=== PATIENT | female | born 1975 ===

== ENCOUNTER 2017-02-12 15:03 | Inpatient (IN) | payer OTHER ==
[2017-02-12 17:24] LABS: HEMATOCRIT 33.8 % (34.0-47.0); MEAN CELL VOLUME 93.4 fl (81.0-99.0); MEAN CORPUSCULAR HEMOGLOBIN 32.4 pg (27.0-31.0); MEAN CORPUSCULAR HGB CONC 34.7 g/dL (33.0-37.0); RED CELL DISTRIBUTION WIDTH 13.2 % (11.5-14.5); WHITE BLOOD COUNT 6.3 K/uL (4.8-10.8)
[2017-02-12 17:25] LABS: ALB/GLOB RATIO 1.5 (1.0-2.1); ALKALINE PHOSPHATASE 57 U/L (38-126); ALT/SGPT 27 U/L (9-52); AST/SGOT 70 U/L (14-36); BILIRUBIN,TOTAL 0.5 mg/dl (0.2-1.3); BLOOD UREA NITROGEN 6 mg/dl (7-17); CALCIUM 9.4 mg/dL (8.4-10.2); CARBON DIOXIDE 33 mmol/L (22-30); CHLORIDE 98 mmol/L (98-107); GFR AFRICAN-AMERICAN > 60; GLUCOSE,RANDOM 87 mg/dL (65-105); POTASSIUM 2.6 MMOL/L (3.6-5.0); SODIUM 141 mmol/l (132-148); TOTAL PROTEIN 6.5 G/DL (6.3-8.2)
[2017-02-12] MEDS ORDERED: Potassium CL 10mEq/100ml 100 ML IVPB ONE (18:13)
[2017-02-12] MEDS ORDERED: Potassium Chloride 20 mEq ER Tab PO ONE ×2 (18:13→18:25)
--- NOTE | 2017-02-12 19:36 | ED PDOC ---
Lower Extremity Pain/Injury Time Seen by Provider: 02/12/17 16:32 Chief Complaint (Nursing): Lower Extremity Problem/Injury Chief Complaint (Provider): Leg Pain History Per: Patient History/Exam Limitations: no limitations Onset/Duration Of Symptoms: Days (x1 week) Severity: Moderate Additional Complaint(s): Zaira Ramires is a 41 year old female, with a past medical history inclusive of HTN, anxiety and hypothyroidism, who presents to the ED on for the evaluation of moderate b/l leg pain that she has experienced x1 week. Associated palpitations also reported, with patient further stating that she has felt a similar array of symptoms in the past, at which time she had been diagnosed with hypokalemia. Patient reportedly saw her PMD 2 days ago for this issue but was referred to the ED for further evaluation/treatment. Pt states she is is not taking BP medications (does not know name), potassium and magnesium. Pt states she was not taking any when she was originally diagnosed with hypokalemia. PT states she has not yet seen nephrology. PMD: Talat March Past Medical History Reviewed: Historical Data, Nursing Documentation, Vital Signs Vital Signs: Last Vital Signs Temp 97.5 F L 02/12/17 15:38 Pulse 80 02/12/17 15:38 Resp 18 02/12/17 15:38 BP 128/63 02/12/17 15:38 Pulse Ox 100 02/12/17 15:38 - Medical History PMH: Anxiety, Gastritis, HTN, Hypothyroidism Denies: HIV, Chronic Kidney Disease - Surgical History Surgical History: Hernia Repair (b/l inguinal) - Family History Family History: States: Unknown Family Hx - Living Arrangements Living Arrangements: With Family - Social History Current smoker - smoking cessation education provided: No Alcohol: None Drugs: Denies - Home Medications Home Medications: Ambulatory Orders Medication Instructions Recorded Bupropion HCl [Wellbutrin Sr] 150 mg PO DAILY 12/01/16 Clonazepam [Klonopin] 0.5 mg PO TID 12/01/16 Levothyroxine [Synthroid] 50 mcg PO DAILY 12/01/16 Zolpidem Tartrate [Ambien] 10 mg PO HS 12/01/16 Calcium Gluconate [calcium 500 mg PO BID #60 tab 12/02/16 gluconate] Folic Acid 1 mg PO DAILY #30 tab 12/02/16 Magnesium Oxide [Mag-Ox] 400 mg PO DAILY #30 tab 12/02/16 Potassium Chloride [K-Dur 20 mEq 40 meq PO QID #120 tab 12/02/16 ER Tab] - Allergies Allergies/Adverse Reactions: Allergies Allergy/AdvReac Type Severity Reaction Status Date / Time No Known Allergies Allergy Verified 12/01/16 06:10 Review of Systems ROS Statement: Except As Marked, All Systems Reviewed And Found Negative Cardiovascular: Positive for: Palpitations Musculoskeletal: Positive for: Leg Pain (b/l) Physical Exam - Reviewed Nursing Documentation Reviewed: Yes Vital Signs Reviewed: Yes - Physical Exam Appears: Positive for: Well, Non-toxic, No Acute Distress Head Exam: Positive for: ATRAUMATIC, NORMAL INSPECTION, NORMOCEPHALIC Skin: Positive for: Normal Color, Warm, DRY Eye Exam: Positive for: Normal appearance ENT: Positive for: Normal ENT Inspection Neck: Positive for: Normal, Painless ROM Cardiovascular/Chest: Positive for: Regular Rate, Rhythm Respiratory: Positive for: CNT, Normal Breath Sounds Gastrointestinal/Abdominal: Positive for: Normal Exam, Bowel Sounds, Soft Back: Positive for: Normal Inspection Extremity: Positive for: Normal ROM Neurologic/Psych: Positive for: Alert, Oriented - Laboratory Results Result Diagrams: 02/12/17 16:47 02/12/17 17:00 - ECG O2 Sat by Pulse Oximetry: 100 (RA) Pulse Ox Interpretation: Normal Medical Decision Making Medical Decision Makin:32 Initial Impression: leg pain, palpitations Initial Plan: * EKG * Labs * Magnesium * Troponin I * Zofran 4mg IV * Reevaluation 18:13 Labs reviewed, notable for hypokalemia (2.6). Ordered administration of potassium chloride 10/100ml IVPB as well as potassium chloride 20meq PO. Discussed with Dr. Barton who would like additional PO potassium. Scribe Attestation: Documented by Renetta Jones, acting as a scribe for Kiera Israel PA-C. Provider Scribe Attestation: All medical record entries made by the Scribe were at my direction and personally dictated by me. I have reviewed the chart and agree that the record accurately reflects my personal performance of the history, physical exam, medical decision making, and the department course for this patient. I have also personally directed, reviewed, and agree with the discharge instructions and disposition. Disposition - Clinical Impression Clinical Impression: Hypokalemia - Patient ED Disposition Is Patient to be Admitted: Yes - Disposition Disposition Time: 19:55 Condition: STABLE - Pt Status Changed To: Hospital Disposition Of: Inpatient - Admit Certification Admit to Inpatient:: After my assessment, the patient will require hospitalization for at least two midnights. This is because of the severity of symptoms shown, intensity of services needed, and/or the medical risk in this patient being treated as an outpatient. - POA Present On Arrival: None
[2017-02-12] MEDS ORDERED: Potassium Chloride 10 mEq ER Tab PO STA (19:55)
[2017-02-13] MEDS ORDERED: Potassium Chloride 10 mEq ER Tab PO ONE (01:07)
[2017-02-13 06:40] LABS: BLOOD UREA NITROGEN 6 mg/dl (7-17); CALCIUM 8.4 mg/dL (8.4-10.2); CARBON DIOXIDE 33 mmol/L (22-30); CHLORIDE 97 mmol/L (98-107); GFR AFRICAN-AMERICAN > 60; GLUCOSE,RANDOM 93 mg/dL (65-105); MAGNESIUM 1.5 MG/DL (1.6-2.3); SODIUM 141 mmol/l (132-148)
[2017-02-13] MEDS ORDERED: Magnesium Sulfate 1 GM in Dextrose 5% In Water 100 ML IV ONE (07:00)
[2017-02-13 07:11] LABS: THYROID STIMULATING HORMONE 1.85 mIU/ML (0.46-4.68)
--- NOTE | 2017-02-13 07:12 | CARD ---
APPROVED REPORT EKG Measurement Heart [id number] <Conclusion> Normal sinus rhythm Normal ECG
[2017-02-13] MEDS: Levothyroxine 50 MCG TAB PO SCH (07:47)
[2017-02-13] MEDS ORDERED: Patient's Own Med (Omeprazole [Omeprazole] 40 MG) PO SCH (09:00)
[2017-02-13] MEDS ORDERED: Patient's Own Med (Zolpidem [Ambien] 10 MG) PO SCH (09:00)
[2017-02-13] MEDS ORDERED: Pantoprazole 40 mg EC Tab PO ONE (09:49)
[2017-02-13] MEDS: Pantoprazole 40 mg EC Tab PO SCH (10:04)
[2017-02-13] MEDS ORDERED: Iohexol 240 (50 ml) PO ONE (14:48)
[2017-02-13 16:18] LABS: PHOSPHOROUS 3.3 mg/dl (2.5-4.5)
[2017-02-13] MEDS ORDERED: Potassium Chloride 20 mEq ER Tab PO ONE ×2 (16:30→20:30)
--- NOTE | 2017-02-13 16:33 | CP.PCM.CON ---
History of Present Illness - History of Present Illness History of Present Illness: 41 y/o female with Hx/o UHTN, Hypothyroidism dxed few mos. ago, anxiety presented to ER for c/o generalized weakness & pain in both legs. Pt stated that she has hsd 7 similar episodes in the past Denied use of alcohol , drug abuse or exposure to chemicals, No one in the family had similar episodes & no other family members have hypo or hyperthyroidism Works as Speciality Pharmacist FHx is significant for DM & HTN in father Past Patient History - Infectious Disease Hx of Infectious Diseases: None - Past Medical History & Family History Past Medical History?: Yes - Past Social History Alcohol: None Drugs: Denies - CARDIAC Hx Cardiac Disorders: No - PULMONARY Hx Respiratory Disorders: No - NEUROLOGICAL Hx Neurological Disorder: No - HEENT Hx HEENT Problems: No - RENAL Hx Chronic Kidney Disease: No - ENDOCRINE/METABOLIC Hx Endocrine Disorders: Yes (hypothyroidism, GI hx: gastritis) - HEMATOLOGICAL/ONCOLOGICAL Hx Blood Disorders: No - INTEGUMENTARY Hx Dermatological Problems: No - MUSCULOSKELETAL/RHEUMATOLOGICAL Hx Musculoskeletal Disorders: No - GASTROINTESTINAL Hx Gastritis: Yes - GENITOURINARY/GYNECOLOGICAL Hx Genitourinary Disorders: No - PSYCHIATRIC Hx Psychophysiologic Disorder: Yes (anxiety) - SURGICAL HISTORY Hx Surgeries: Yes Hx Herniorrhaphy: Yes (Bilateral inguinal) Other/Comment: inguinal hernia sx - ANESTHESIA Hx Anesthesia: Yes Hx Anesthesia Reactions: No Hx Malignant Hyperthermia: No Meds Allergies/Adverse Reactions: Allergies Allergy/AdvReac Type Severity Reaction Status Date / Time No Known Allergies Allergy Verified 12/01/16 06:10 - Medications Medications: Current Medications Clonazepam (Klonopin) 1 mg PO BID [facility] Levothyroxine Sodium (Synthroid) 50 mcg PO DAILY@0630 [facility] Last Admin: 02/13/17 07:47 Dose: 50 mcg Ondansetron HCl (Zofran Inj) 4 mg IVP Q6 PRN PRN Reason: Nausea/Vomiting Last Admin: 02/13/17 11:24 Dose: 4 mg Pantoprazole Sodium (Protonix Ec Tab) 40 mg PO DAILY [facility] Last Admin: 02/13/17 10:04 Dose: 40 mg Potassium Chloride (K-Dur 20 Meq Er Tab) 40 meq PO ONCE ONE Stop: 02/14/17 16:31 Potassium Chloride (K-Dur 20 Meq Er Tab) 40 meq PO ONCE ONE Stop: 02/14/17 20:31 Zolpidem Tartrate (Ambien) 5 mg PO HS [facility] Results - Vital Signs Recent Vital Signs: Last Vital Signs Temp 98.7 F 02/13/17 15:23 Pulse 80 02/13/17 15:23 Resp 16 02/13/17 15:23 BP 109/63 02/13/17 15:23 Pulse Ox 98 02/13/17 15:23 - Labs Result Diagrams: 02/12/17 16:47 02/13/17 05:41 Labs: Laboratory Results - last 24 hr 02/12/17 02/13/17 02/13/17 20:20 05:41 15:45 Sodium 141 Potassium 3.0 L Chloride 97 L Carbon Dioxide 33 H Anion Gap 14 BUN 6 L Creatinine 0.6 L Est GFR ( Amer) > 60 Est GFR (Non-Af Amer) > 60 Random Glucose 93 Calcium 8.4 Phosphorus 3.3 Magnesium 1.7 1.5 L Total Creatine Kinase 79 TSH 3rd Generation 1.85 Assessment & Plan - Assessment and Plan (Free Text) Assessment: Hypokalemia etiology unclear at this time Mild metabolic alkalosis Hypothyroidism Anxiety disorder on Clonazepam Plan: Supplement K+ Urinalysis Urine lytes Phos CPK Repeat liver panel Grzegorz & renin levels
[2017-02-13] MEDS ORDERED: Sodium Chloride 0.9% 50 ML IV ONE (19:31)
[2017-02-13] MEDS ORDERED: Iohexol 300 100 ML IJ ONE (19:31)
[2017-02-13 20:12] VITALS: BMI 21.0
[2017-02-13 22:45] LABS: RBC URINE < 1 /hpf (0-3); URINE BACTERIA FEW (<OCC); URINE BILIRUBIN NEGATIVE (NEGATIVE); URINE BLOOD NEGATIVE (NEGATIVE); URINE COLOR STRAW (YELLOW); URINE GLUCOSE (UA) NEGATIVE (Normal); URINE KETONE NEGATIVE (NEGATIVE); URINE LEUKOCYTE ESTERASE NEGATIVE Leu/uL (Negative); URINE PROTEIN NEGATIVE (NEGATIVE); URINE UROBILINOGEN 0.2 mg/dL (0.2-1.0); WBC URINE < 1 /hpf (0-5)
[2017-02-14 07:32] LABS: ALB/GLOB RATIO 1.4 (1.0-2.1); ALKALINE PHOSPHATASE 55 U/L (38-126); ALT/SGPT 31 U/L (9-52); AST/SGOT 32 U/L (14-36); BILIRUBIN,TOTAL 0.4 mg/dl (0.2-1.3); BLOOD UREA NITROGEN 9 mg/dl (7-17); CALCIUM 8.9 mg/dL (8.4-10.2); CARBON DIOXIDE 33 mmol/L (22-30); CHLORIDE 96 mmol/L (98-107); GFR AFRICAN-AMERICAN > 60; GLUCOSE,RANDOM 91 mg/dL (65-105); MAGNESIUM 2.2 MG/DL (1.6-2.3); POTASSIUM 2.8 MMOL/L (3.6-5.0); SODIUM 140 mmol/l (132-148); TOTAL PROTEIN 6.2 G/DL (6.3-8.2)
--- NOTE | 2017-02-14 08:37 | HP ---
HISTORY OF PRESENT ILLNESS: The patient is a 41-year-old female with history of hypothyroid ism and gastroesophageal reflux disease, presented to Emergency Room with symptoms of bilateral lower extremity weakness, tingling and numbness. The patient had blood work done in her primary care phys ician's office and she was advised to come to the hospital for evaluation where she was found to have potassium of 2.6. The patient denied to have any nausea, vomiting or decreased oral intake. The pa john was not on any laxatives or diuretic. REVIEW OF SYSTEMS: Other review of systems is negative. ALLERGIES: No known allergy. HOME MEDICATIONS: Ambien 5 mg daily, K-Dur 20 mEq daily, Klonopin 1 mg twice a day, Protonix 40 mg d aily, levothyroxine 50 mcg daily. SOCIAL HISTORY: No history of smoking, EtOH or substance abuse. FAMILY HISTORY: Noncontributory. PHYSICAL EXAMINATION: GENERAL: The patient is in bed, comfortable, not in any cardiopulmonary distress. VITAL SIGNS: Blood pressure 115/81, temperature 97.4, respiratory rate 18, and pulse 93. HEENT: Pupils equal, reactive to light. Normal-appearing mucosa of the conjunctivae, oropharyngeal and nasal membrane mucosa. NECK: Supple, no JVD, no carotid bruit, no lymph node, no thyromegaly. CHEST AND LUNGS: Bilateral symmetrical expansion, good air exchange, no rales, no rhonchi. CARDIOVASCULAR: PMI not localized. S1, S2. No additional sounds. ABDOMEN: Normoactive bowel sounds, no tenderness, no organomegaly, no masses. EXTREMITIES: No cyanosis, no clubbing, no edema. CENTRAL NERVOUS SYSTEM: Alert, awake, oriented x 3. No neurological deficits could be appreciated. ASSESSMENT: 1. Hypokalemia. The differential diagnosis includes periodic hypokalemic paralysis. 2. Hypothyroidism. PLAN: We will check magnesium and supplement potassium, and due to vague abdominal symptoms, we will do CAT scan of the abdomen with p.o. and IV contrast. Nephrology consult. Phil Ana Barton MD cc: [phone] TT: 02/13/2017 19:54:26 mn
[2017-02-14] MEDS: Levothyroxine 50 MCG TAB PO SCH (09:03)
[2017-02-14] MEDS: Pantoprazole 40 mg EC Tab PO SCH (09:03)
--- NOTE | 2017-02-14 10:35 | CT ---
PROCEDURE: CT Abdomen and abdomen and pelvis dated 02/13/2017 HISTORY: abdl pain/ vomiting COMPARISON: None. TECHNIQUE: Contiguous axial images of the abdomen and pelvis performed in standard fashion following oral and intravenous injection of approximately 90 cc of Omnipaque 300 contrast material. Additional 2 dimensional sagittal and coronal reformats provided. This CT scan was performed using one or more of the following dose reduction techniques: Automated exposure control, adjustment of the mA and or kV according to patient's size and or use of iterative technique Radiation dose: Total exam DLP = 396.96 mGy-cm. FINDINGS: LOWER THORAX: Lung bases are clear. No infiltrate effusion or basilar pneumothorax. Heart size is within range of normal. No evidence of pericardial effusion LIVER: Liver exhibits normal size measuring approximately 16.4 cm in CC dimension. Mild to moderate diffuse fatty infiltration. No obvious hepatic mass collection or calcification. Portal and splenic veins are opacified. GALLBLADDER AND BILE DUCTS: Gallbladder is appears incompletely distended. No evidence of intraluminal gallbladder calculi. PANCREAS: Pancreas appears unremarkable without mass collection or calcification SPLEEN: Spleen exhibits normal size and attenuation pattern without mass collection or calcification. . ADRENALS: No adrenal lesions. KIDNEYS AND URETERS: The kidneys exhibit symmetric nephrograms. No evidence of nephrolithiasis or hydronephrosis. BLADDER: Grossl urinary bladder is physiologically distended. No evidence of intraluminal urinary bladder calculi. REPRODUCTIVE: There appears to be a small cervical nabothian cyst. This could be confirmed with follow-up nonemergent pelvic ultrasound if indicated. Questionable small left adnexal cyst which may also be confirmed or excluded with pelvic ultrasound. Due. . APPENDIX: Normal appearing appendix best seen on coronal image number [id number] BOWEL: Evaluation of the bowel slightly limited due to incomplete opacification. . The stomach is incompletely distended which presumably accounts for thick-walled appearance. The possibility of gastritis or other intrinsic but/invasive wall lesion not excluded. Visualized loops of small bowel exhibit normal contour and caliber. No evidence acute mechanical small bowel obstruction. There is a relatively large amount of stool within rectum and sigmoid as well as distal descending colon consistent with mild fecal retention/ constipation. PERITONEUM: No evidence of free intraperitoneal air or fluid. LYMPH NODES: Unremarkable. No enlarged lymph nodes. VASCULATURE: Unremarkable. No aortic aneurysm. BONES: Minor multilevel degenerative spondylosis of the lower thoracic and lumbar spine. OTHER FINDINGS: None. IMPRESSION: Findings consistent with mild fecal retention/constipation. Mild fatty hepatic infiltration. Probable cervical nabothian cyst. Questionable tiny left adnexal cyst. Followup nonemergent pelvic ultrasound could be performed to confirm or exclude these findings.
[2017-02-14] MEDS ORDERED: Potassium Chloride 20 mEq ER Tab PO ONE ×5 (11:54→20:30)
--- NOTE | 2017-02-14 13:21 | CP.PCM.PN ---
Subjective - Date & Time of Evaluation Date of Evaluation: 02/14/17 Time of Evaluation: 13:18 - Subjective Subjective: seen and examined feeling better less tingling Objective - Vital Signs/Intake and Output Vital Signs (last 24 hours): Temp Pulse Resp BP Pulse Ox 97.4 F L 66 18 114/76 100 02/14/17 08:00 02/14/17 09:00 02/14/17 08:00 02/14/17 08:00 02/14/17 08:00 - Medications Medications: Current Medications Clonazepam (Klonopin) 1 mg PO BID [facility] Last Admin: 02/14/17 09:03 Dose: 1 mg Potassium Chloride (Potassium Chloride 10 Meq/100 Ml) 100 mls @ 100 mls/hr IVPB Q1 [facility] Stop: 02/14/17 15:59 Levothyroxine Sodium (Synthroid) 50 mcg PO DAILY@0630 [facility] Last Admin: 02/14/17 09:03 Dose: 50 mcg Ondansetron HCl (Zofran Inj) 4 mg IVP Q6 PRN PRN Reason: Nausea/Vomiting Last Admin: 02/13/17 18:54 Dose: 4 mg Pantoprazole Sodium (Protonix Ec Tab) 40 mg PO DAILY [facility] Last Admin: 02/14/17 09:03 Dose: 40 mg Zolpidem Tartrate (Ambien) 5 mg PO HS [facility] Last Admin: 02/13/17 21:01 Dose: 5 mg - Labs Labs: 02/14/17 06:20 - Constitutional Appears: Well - Head Exam Head Exam: ATRAUMATIC - Eye Exam Eye Exam: Normal appearance - ENT Exam ENT Exam: Normal Exam - Respiratory Exam Respiratory Exam: NORMAL BREATHING PATTERN - Cardiovascular Exam Cardiovascular Exam: +S1, +S2 - GI/Abdominal Exam GI & Abdominal Exam: Normal Bowel Sounds - Extremities Exam Additional comments: no edema - Neurological Exam Neurological Exam: Alert, Oriented x3 - Psychiatric Exam Psychiatric exam: Normal Affect - Skin Skin Exam: Normal Color Assessment and Plan - Assessment and Plan (Free Text) Assessment: hypokalemia / metabolic alkalosis / hypothyroid plan: hypokalemia - althought her urine k was low by spot , i doubt this is hypokalemia from transceullar shift and most likely a result of renal k wasting. I have ordered a spot urine k / cr to assess for this as well as a 24 hour urine k. The low urine k by spot likely low due to dilutional from polyuria. assuming that it is k wasting - next step is urine cl which i have ordered. If this is high, which i suspect it will be than the ddx is diuretic, barter, and gitleman. She denies diuretic - if possible I would recommend ordering a diuretic screen. In the ddx is surreptious vomiting as well, urine cl will be low in that situation. Given her age more likely to be gitleman than barter. 24 hour urine calcium would help distinguish the two. In the meantime discussed repletion of k w/ engineering vice president. Recc recheck bmp this afternoon to see if she needs more.
[2017-02-14] MEDS: Potassium CL 10mEq/100ml 100 ML IVPB SCH ×4 (14:03→17:05)
[2017-02-14] MEDS: buPROPion SR 150 MG TABLET PO SCH (16:22)
[2017-02-14 22:00] LABS: BLOOD UREA NITROGEN 7 mg/dl (7-17); CALCIUM 8.5 mg/dL (8.4-10.2); CARBON DIOXIDE 31 mmol/L (22-30); CHLORIDE 98 mmol/L (98-107); GFR AFRICAN-AMERICAN > 60; GLUCOSE,RANDOM 49 mg/dL (65-105); POTASSIUM 2.9 MMOL/L (3.6-5.0); SODIUM 139 mmol/l (132-148)
[2017-02-15] MEDS: Levothyroxine 50 MCG TAB PO SCH (06:00)
[2017-02-15 06:45] LABS: HEMATOCRIT 36.6 % (34.0-47.0); MEAN CORPUSCULAR HGB CONC 34.4 g/dL (33.0-37.0); RED CELL DISTRIBUTION WIDTH 13.3 % (11.5-14.5); WHITE BLOOD COUNT 6.7 K/uL (4.8-10.8)
[2017-02-15 06:48] LABS: BLOOD UREA NITROGEN 11 mg/dl (7-17); CALCIUM 8.7 mg/dL (8.4-10.2); CARBON DIOXIDE 26 mmol/L (22-30); CHLORIDE 104 mmol/L (98-107); GFR AFRICAN-AMERICAN > 60; GLUCOSE,RANDOM 90 mg/dL (65-105); SODIUM 141 mmol/l (132-148)
[2017-02-15 08:02] LABS: CHLORIDE URINE <15 mmol/L (32-290)
[2017-02-15] MEDS: Pantoprazole 40 mg EC Tab PO SCH (09:21)
[2017-02-15] MEDS: buPROPion SR 150 MG TABLET PO SCH (09:22)
--- NOTE | 2017-02-15 12:31 | CP.PCM.PN ---
Subjective - Date & Time of Evaluation Date of Evaluation: 02/15/17 Time of Evaluation: 12:20 - Subjective Subjective: C/o feeling nauseous. No vomiting Feels very thirsty Objective - Vital Signs/Intake and Output Vital Signs (last 24 hours): Temp Pulse Resp BP Pulse Ox 97.5 F L 68 20 96/60 L 100 02/15/17 09:00 02/15/17 09:00 02/15/17 09:00 02/15/17 09:00 02/15/17 09:00 - Medications Medications: Current Medications Bupropion HCl (Wellbutrin Sr 150 Mg) 150 mg PO DAILY [facility] Last Admin: 02/15/17 09:22 Dose: 150 mg Clonazepam (Klonopin) 1 mg PO BID [facility] Last Admin: 02/15/17 09:57 Dose: 1 mg Levothyroxine Sodium (Synthroid) 50 mcg PO DAILY@0630 [facility] Last Admin: 02/15/17 06:00 Dose: 50 mcg Ondansetron HCl (Zofran Inj) 4 mg IVP Q6 PRN PRN Reason: Nausea/Vomiting Last Admin: 02/15/17 08:36 Dose: 4 mg Pantoprazole Sodium (Protonix Ec Tab) 40 mg PO DAILY [facility] Last Admin: 02/15/17 09:21 Dose: 40 mg Zolpidem Tartrate (Ambien) 5 mg PO HS [facility] Last Admin: 02/14/17 21:36 Dose: 5 mg - Labs Labs: 02/15/17 04:00 02/15/17 04:30 - Respiratory Exam Additional comments: Lungs clear - Cardiovascular Exam Cardiovascular Exam: REGULAR RHYTHM - Extremities Exam Additional comments: No edema Assessment and Plan - Assessment and Plan (Free Text) Assessment: Hypokalemia. K+ remains low despite supplementation Low sodium & low chloride in urine suggest intravascular volume depletion Plan: Supplement K+ as needed Suggest IV fluids 24 hr urine pending
[2017-02-15] MEDS: Dextrose 5%/0.45% NS 1,000 ML IV SCH (15:31)
[2017-02-15] MEDS ORDERED: Potassium Chloride 20 mEq ER Tab PO ONE (20:14)
--- NOTE | 2017-02-15 20:45 | PN ---
DATE: 02/15/2017 SUBJECTIVE: The patient is seen today, 02/15/2017. She still has potassium of 3.0. VITAL SIGNS: Blood pressure is 108/69, temperature 98.4, respiratory rate 18 and pulse is 71. HEENT: Pupils equal, reactive to light. Normal-appearing mucosa of the conjunctivae, oropharyngeal, and nasal membrane mucosa. NECK: Supple, no JVD, no carotid bruit, no lymph node, no thyromegaly. CHEST AND LUNGS: Bilateral symmetrical expansion, good air exchange, no rales, no rhonchi. CARDIOVASCULAR: PMI not localized. S1, S2. No additional sounds. ABDOMEN: Normoactive bowel sounds, no tenderness, no organomegaly, no masses. EXTREMITIES: No cyanosis, no clubbing, no edema. CENTRAL NERVOUS SYSTEM: Alert, awake, oriented x 3. No neurological deficits could be appreciated. ASSESSMENT: 1. Persistent hypokalemia of unknown etiology so far. 2. Hypothyroidism. PLAN: We will supplement potassium today. Monitor electrolytes tomorrow and follow up nephrology re commendations and continue monitoring patient on telemetry. [facility] Ana Barton MD cc: [phone] TT: 02/15/2017 20:45:08 Confirmation # [id number] Dictation # [id number] ln
--- NOTE | 2017-02-15 20:49 | PN ---
DATE: 02/14/2017 The patient was seen on 02/14/2017. She was still complaining of lower extremity weakness, while pot assium was 2.8. PHYSICAL EXAMINATION: VITAL SIGNS: Blood pressure 106/72, temperature 98.4, respiratory rate 18, and pulse 68. HEENT: Pupils equal, reactive to light. Normal-appearing mucosa of the conjunctivae, oropharyngeal and nasal membrane mucosa. NECK: Supple, no JVD, no carotid bruit, no lymph node, no thyromegaly. CHEST AND LUNGS: Bilateral symmetrical expansion, good air exchange, no rales, no rhonchi. CARDIOVASCULAR: PMI not localized. S1, S2. No additional sounds. ABDOMEN: Normoactive bowel sounds, no tenderness, no organomegaly, no masses. EXTREMITIES: No cyanosis, no clubbing, no edema. CENTRAL NERVOUS SYSTEM: Alert, awake, oriented x 3. No neurological deficits could be appreciated. ASSESSMENT: 1. Persistent hypokalemia with his lower extremity weakness, etiology of which is not clear. 2. Hypothyroidism. PLAN: Follow nephrology recommendations. Check urine for chloride and aldosterone levels as per nep hrologist. We will supplement potassium and magnesium. Emery Barton MD cc: [phone] TT: 02/15/2017 20:48:42 Confirmation # [id number] Dictation # [id number] ln
[2017-02-16] MEDS ORDERED: Potassium Chloride 20 mEq ER Tab PO ONE ×3 (00:15→21:00)
[2017-02-16] MEDS: Levothyroxine 50 MCG TAB PO SCH (05:57)
[2017-02-16 08:27] LABS: BLOOD UREA NITROGEN 9 mg/dl (7-17); CALCIUM 8.8 mg/dL (8.4-10.2); CARBON DIOXIDE 28 mmol/L (22-30); CHLORIDE 105 mmol/L (98-107); GFR AFRICAN-AMERICAN > 60; GLUCOSE,RANDOM 95 mg/dL (65-105); SODIUM 142 mmol/l (132-148)
[2017-02-16] MEDS: buPROPion SR 150 MG TABLET PO SCH (09:17)
[2017-02-16] MEDS: Pantoprazole 40 mg EC Tab PO SCH (09:17)
[2017-02-16] MEDS: Dextrose 5%/0.45% NS 1,000 ML IV SCH (09:27)
[2017-02-16 14:35] LABS: CHLORIDE URINE <15 mmol/L (32-290)
--- NOTE | 2017-02-16 14:53 | CP.PCM.PN ---
Subjective - Date & Time of Evaluation Date of Evaluation: 02/16/17 Time of Evaluation: 02:20 - Subjective Subjective: C/o pain in legs when walking around sweats a lot when nervous or while eating meals Objective - Vital Signs/Intake and Output Vital Signs (last 24 hours): Temp Pulse Resp BP Pulse Ox 97.5 F L 92 H 18 103/67 100 02/16/17 12:18 02/16/17 12:18 02/16/17 12:18 02/16/17 12:18 02/16/17 12:18 - Medications Medications: Current Medications Bupropion HCl (Wellbutrin Sr 150 Mg) 150 mg PO DAILY [facility] Last Admin: 02/16/17 09:17 Dose: 150 mg Clonazepam (Klonopin) 1 mg PO BID [facility] Last Admin: 02/16/17 09:25 Dose: 1 mg Levothyroxine Sodium (Synthroid) 50 mcg PO DAILY@0630 [facility] Last Admin: 02/16/17 05:57 Dose: 50 mcg Ondansetron HCl (Zofran Inj) 4 mg IVP Q6 PRN PRN Reason: Nausea/Vomiting Last Admin: 02/15/17 08:36 Dose: 4 mg Pantoprazole Sodium (Protonix Ec Tab) 40 mg PO DAILY [facility] Last Admin: 02/16/17 09:17 Dose: 40 mg Zolpidem Tartrate (Ambien) 5 mg PO HS [facility] Last Admin: 02/15/17 22:22 Dose: 5 mg - Labs Labs: 02/15/17 04:00 02/16/17 06:00 - Respiratory Exam Additional comments: Lungs clear - Cardiovascular Exam Cardiovascular Exam: REGULAR RHYTHM - Extremities Exam Additional comments: No edema Mild B/L calf tenderness Assessment and Plan - Assessment and Plan (Free Text) Assessment: Hypokalemia K+ level remains low Low random urine K+ & K+/ creat suggesta extra renal K+ loss (Cellular shift, GI losses) 24 hr urineK+ is pending, Ca is normal metabolic alkalosis corrected Plan: Check BP for orthostatic hypotension Continue IVFs Venous doppler of both LEs
[2017-02-17] MEDS: Potassium Chloride 20 mEq ER Tab PO SCH ×2 (04:58→09:33)
[2017-02-17] MEDS: Pantoprazole 40 mg EC Tab PO SCH (09:33)
[2017-02-17] MEDS: Levothyroxine 50 MCG TAB PO SCH (09:34)
[2017-02-17] MEDS: buPROPion SR 150 MG TABLET PO SCH (09:34)
[2017-02-17 10:49] LABS: BLOOD UREA NITROGEN 7 mg/dl (7-17); CALCIUM 8.9 mg/dL (8.4-10.2); CARBON DIOXIDE 23 mmol/L (22-30); CHLORIDE 104 mmol/L (98-107); GFR AFRICAN-AMERICAN > 60; GLUCOSE,RANDOM 109 mg/dL (65-105); SODIUM 142 mmol/l (132-148)
[2017-02-17 11:10] LABS: POTASSIUM 2.5 MMOL/L (3.6-5.0)
[2017-02-17] MEDS: Potassium CL 10mEq/100ml 100 ML IVPB SCH ×3 (11:54→15:00)
--- NOTE | 2017-02-17 13:50 | CP.PCM.PN ---
Subjective - Date & Time of Evaluation Date of Evaluation: 02/17/17 Time of Evaluation: 01:00 - Subjective Subjective: C/o numbness in legs Objective - Vital Signs/Intake and Output Vital Signs (last 24 hours): Temp Pulse Resp BP Pulse Ox 97.5 F L 94 H 18 108/73 100 02/17/17 12:19 02/17/17 12:19 02/17/17 12:19 02/17/17 12:19 02/17/17 12:19 - Medications Medications: Current Medications Bupropion HCl (Wellbutrin Sr 150 Mg) 150 mg PO DAILY [facility] Last Admin: 02/17/17 09:34 Dose: 150 mg Clonazepam (Klonopin) 1 mg PO BID [facility] Last Admin: 02/17/17 09:38 Dose: 1 mg Potassium Chloride (Potassium Chloride 10 Meq/100 Ml) 100 mls @ 100 mls/hr IVPB Q1 [facility] Stop: 02/17/17 14:59 Last Admin: 02/17/17 13:08 Dose: 100 mls/hr Levothyroxine Sodium (Synthroid) 50 mcg PO DAILY@0630 [facility] Last Admin: 02/17/17 09:34 Dose: Not Given Ondansetron HCl (Zofran Inj) 4 mg IVP Q6 PRN PRN Reason: Nausea/Vomiting Last Admin: 02/15/17 08:36 Dose: 4 mg Pantoprazole Sodium (Protonix Ec Tab) 40 mg PO DAILY [facility] Last Admin: 02/17/17 09:33 Dose: 40 mg Potassium Chloride (K-Dur 20 Meq Er Tab) 40 meq PO ONCE [facility] Last Admin: 02/17/17 04:58 Dose: 40 meq Potassium Chloride (K-Dur 20 Meq Er Tab) 40 meq PO DAILY [facility] Last Admin: 02/17/17 09:33 Dose: 40 meq - Labs Labs: 02/15/17 04:00 02/17/17 10:25 - Respiratory Exam Additional comments: Lungs clear - Cardiovascular Exam Cardiovascular Exam: REGULAR RHYTHM - Extremities Exam Additional comments: No edema or cyanosis Assessment and Plan - Assessment and Plan (Free Text) Assessment: Hypokalemia Polyuria with low uosm Plan: supplement K+ Suggest MRI of brain to r/o pituitary pathology Repeat Mg level Vasopressin level
[2017-02-17] MEDS ORDERED: Gadodiamide 287 MG/ML VIAL (15ML) IV ONE (14:07)
[2017-02-17] MEDS ORDERED: Sodium Chloride 0.9% 50 ML IV ONE (14:24)
--- NOTE | 2017-02-17 15:50 | CON ---
DATE: 02/17/2017 ROOM: 418 This is a 41-year-old female with known history of hypertension and dyslipidemia, presenting here wit h lower extremity weakness and paresthesias and is now being referred for endocrine evaluation for pe rsistent hypokalemia as noted thereof. PAST MEDICAL HISTORY: History of hypothyroidism, currently on levothyroxine given as 50 mcg daily, h istory of hypertension and dyslipidemia, history of generalized anxiety and depression and insomnia. FAMILY HISTORY: Positive for hypertension and diabetes. No known endocrinopathy. SOCIAL HISTORY: The patient has a supportive family. No known substance use. REVIEW OF SYSTEMS: Admits to generalized body weakness with easy fatigability and tiredness and subo ptimal energy level. No chest pains or palpitations or PNDs. Admits to vague upper abdominal pain w ith nausea, dyspepsia, but no overt vomiting episodes or any loose watery diarrhea. No recent altera tions of bowel and/or urinary patterns nor any intake of any diuretics thereof. PHYSICAL EXAMINATION: GENERAL: This is an average built female, in no apparent distress. VITAL SIGNS: Blood pressure of 140/80, pulse of 70 beats per minute and regular, temperature 98, res pirations 20. Height is 5 feet 3 inches, weight is 119 pounds. HEENT: Head normocephalic. Eyes anicteric with conjunctivae. Fundoscopy not possible at this time. Ears, nose and throat otherwise normal. NECK: Supple. The thyroid gland is normal size. No carotid bruits or cervical adenopathy. CARDIOPULMONARY: Some adynamic precordium. S1, S2 is rapid and regular. LUNGS: Clear to auscultation. ABDOMEN: Flat, soft with positive bowel sounds. EXTREMITIES: No peripheral edema. Pulses are +2 bilaterally. LABORATORIES: The initial chemistries showed a BUN of 7, sodium 139, potassium 2.9, chloride 98, CO2 31, glucose 49 and creatinine 0.7. The subsequent glucoses have ranged from 95-109 mg/dL. The subs equent potassium levels have ranged from 2.5-3.0 mEq/liter. The serum osmolality is 304. The plasma rennin is pending at this time. The plasma aldosterone is 2 and the ratios are pending at this time . The TSH value is 1.85. ASSESSMENT: This is a 41-year-old female with significant hypokalemia and associated periodic paraly sis related to the aforementioned metabolic phenomenon and the etiology has yet to be ascertained. T here are no overt gastrointestinal losses of potassium with no recent vomiting or diarrhea as noted. The possibility of an adrenal phenomenon such as hyporeninemic hyperaldosteronism has to be excluded at this time, although quite rare in actuality. We will also try to exclude any underlying cortisol related phenomenon as ordered. PLAN OF MANAGEMENT: We will obtain a cortisol and a plasma ACTH value tomorrow with a concomitant ca lcitonin level and will repeat the thyroid studies to adjust her dose regimen accordingly. We will a lso obtain a calcitonin level to exclude any neuroendocrine tumors, although quite unlikely at this t chester. An ectopic ACTH syndrome causing hypokalemia related to underlying neuroendocrine tumors can al so be a possibility again. Her initial evaluations and invasive testing have been negative at this t chester. We will follow and advise accordingly. Lula Alberts MD cc: [id number] TT: 02/17/2017 15:49:37 Confirmation # [id number] Dictation # [id number]
--- NOTE | 2017-02-17 17:02 | MRI ---
PROCEDURE: MRI BRAIN AND PITUITARY WITH AND WITHOUT CONTRAST HISTORY: pituitary tumor? hypokalemia COMPARISON: None. TECHNIQUE: Multiplanar, multisequence MR images of the pituitary glad were obtained, including high resolution sagittal T2 and dynamic, multiphasic contrast coronal T1 weighted images of the sellar turcica. Patient was injected with 8 cc of Omniscan intravenously. FINDINGS: PITUITARY GLAND: Unremarkable. No mass, abnormal enhancement or signal abnormality. Infundibulum midline. OPTIC CHIASM: Unremarkable. SUPRASELLAR CISTERN: Unremarkable. CAVERNOUS SINUSES: Unremarkable. BRAIN (LIMITED): Incomplete study of the entire brain. Within this limitation, no gross mass or mass effect. VENTRICLES: Unremarkable. No hydrocephalus. OTHER FINDINGS: None. IMPRESSION: Unremarkable pre and post MRI of the pituitary gland. No adenoma seen.
--- NOTE | 2017-02-17 18:41 | PN ---
DATE: 02/17/2017 SUBJECTIVE: The patient is seen today, 02/17/2017. She complains bilateral lower extremity weakness . Potassium is 2.5 today. PHYSICAL EXAMINATION: VITAL SIGNS: Blood pressure 117/77, temperature 98.0, respiratory rate 20, and pulse 93. HEENT: Pupils equal, reactive to light. Normal-appearing mucosa of the conjunctivae, oropharyngeal and nasal membrane mucosa. NECK: Supple. No JVD, no carotid bruit, no lymph node, no thyromegaly. CHEST AND LUNGS: Bilateral symmetrical expansion, good air exchange. No rales, no rhonchi. CARDIOVASCULAR: PMI not localized. S1, S2. No additional sounds. ABDOMEN: Normoactive bowel sounds, no tenderness, no organomegaly, no masses. EXTREMITIES: No cyanosis, no clubbing, no edema. CENTRAL NERVOUS SYSTEM: Alert, awake, oriented x 3. No neurological deficits could be appreciated. ASSESSMENT: Hypokalemia of undetermined etiology at this point. The urine potassium is 3 mmol which is 54 mEq for 24 hours. The patient has polyuria with urine volume 2400. Rule out urinary wasting of the potassium, including hyperaldosteronism. PLAN: Follow the recommendations of endocrinology and nephrology. Supplement potassium. Emery Barton MD cc: [phone] TT: 02/17/2017 18:40:55 Confirmation # [id number] Dictation # [id number] mn
[2017-02-18 01:25] LABS: ALDO/PRA RATIO 0.5 Ratio (0.9-28.9)
[2017-02-18] MEDS: Levothyroxine 50 MCG TAB PO SCH (07:10)
[2017-02-18 07:18] LABS: ALB/GLOB RATIO 1.4 (1.0-2.1); ALKALINE PHOSPHATASE 58 U/L (38-126); ALT/SGPT 30 U/L (9-52); AST/SGOT 33 U/L (14-36); BILIRUBIN,TOTAL 0.2 mg/dl (0.2-1.3); BLOOD UREA NITROGEN 7 mg/dl (7-17); CALCIUM 8.5 mg/dL (8.4-10.2); CARBON DIOXIDE 31 mmol/L (22-30); CHLORIDE 100 mmol/L (98-107); GFR AFRICAN-AMERICAN > 60; GLUCOSE,RANDOM 62 mg/dL (65-105); SODIUM 144 mmol/l (132-148); TOTAL PROTEIN 5.9 G/DL (6.3-8.2)
[2017-02-18 07:37] LABS: POTASSIUM 2.5 MMOL/L (3.6-5.0)
[2017-02-18] MEDS: Potassium CL 10 MEQ/50 ML 50 ML IVPB SCH ×8 (08:39→16:59)
[2017-02-18] MEDS: buPROPion SR 150 MG TABLET PO SCH (08:40)
[2017-02-18] MEDS: Potassium Chloride 20 mEq ER Tab PO SCH (08:40)
[2017-02-18] MEDS: Pantoprazole 40 mg EC Tab PO SCH (08:40)
--- NOTE | 2017-02-18 11:13 | CP.PCM.PN ---
Subjective - Date & Time of Evaluation Date of Evaluation: 02/18/17 Time of Evaluation: 10:45 - Subjective Subjective: No new complaints Objective - Vital Signs/Intake and Output Vital Signs (last 24 hours): Temp Pulse Resp BP Pulse Ox 97.4 F L 91 H 18 120/83 95 02/18/17 08:00 02/18/17 08:00 02/18/17 08:00 02/18/17 08:00 02/18/17 08:00 - Medications Medications: Current Medications Bupropion HCl (Wellbutrin Sr 150 Mg) 150 mg PO DAILY [facility] Last Admin: 02/18/17 08:40 Dose: 150 mg Clonazepam (Klonopin) 1 mg PO BID [facility] Last Admin: 02/18/17 08:43 Dose: 1 mg Potassium Chloride (Potassium Cl 10meq/50ml Sterile Water) 50 mls @ 50 mls/hr IVPB Q1 [facility] Stop: 02/18/17 16:59 Last Admin: 02/18/17 09:43 Dose: 50 mls/hr Levothyroxine Sodium (Synthroid) 50 mcg PO DAILY@0630 [facility] Last Admin: 02/18/17 07:10 Dose: 50 mcg Ondansetron HCl (Zofran Inj) 4 mg IVP Q6 PRN PRN Reason: Nausea/Vomiting Last Admin: 02/18/17 07:08 Dose: 4 mg Pantoprazole Sodium (Protonix Ec Tab) 40 mg PO DAILY [facility] Last Admin: 02/18/17 08:40 Dose: 40 mg Potassium Chloride (K-Dur 20 Meq Er Tab) 40 meq PO ONCE [facility] Last Admin: 02/17/17 04:58 Dose: 40 meq Potassium Chloride (K-Dur 20 Meq Er Tab) 40 meq PO DAILY [facility] Last Admin: 02/18/17 08:40 Dose: 40 meq - Labs Labs: 02/15/17 04:00 02/18/17 05:35 - Respiratory Exam Additional comments: Lungs clear - Cardiovascular Exam Cardiovascular Exam: REGULAR RHYTHM - Extremities Exam Additional comments: No edema Assessment and Plan - Assessment and Plan (Free Text) Assessment: Hypokalemia K+remains low Mg is normal MRI of brain is negative Plan: Evaluated by Endo Vasopressin level is pending. Will IVFs May be causing K+ wasting by increasing delivery to DT
[2017-02-18 12:49] LABS: ABG ALLEN TEST YES; ARTERIAL BLOOD GAS HCO3 34.3 mmol/L (21-28); ARTERIAL BLOOD GAS O2 CAPACITY 17.5 mL/dL (16-24); ARTERIAL BLOOD GAS O2 CONTENT 16.9 ML/dL (15-23); ARTERIAL BLOOD GAS PH 7.51 (7.35-7.45); ARTERIAL BLOOD GAS PO2 85 mm/Hg (80-100); ARTERIAL BLOOD HGB O2 SAT 95.2 % (95.0-98.0); CARBOXYHEMOGLOBIN 0.5 % (0.5-1.5); HHB 3.6 % (0.0-5.0); METHEMOGLOBIN 0.8 % (0.0-3.0)
--- NOTE | 2017-02-18 14:42 | PN ---
DATE: 02/18/2017 LOCATION: In room 415. This is a 41-year-old female with spontaneous hypokalemia despite oral and IV potassium supplementati on as given. She remains clinically and biochemically euadrenal at this time. The latest chemistrie s showed a BUN of 7, sodium 144, potassium 2.5, chloride 100, CO2 31, glucose 62 and creatinine 0.7. She admits to having marked amenorrhea with reduced sex libido and so the female hormone sent out sh owed a follicle stimulating hormone of 4.0 and a ____ hormone of 5.4 which ____ at this time. The pr olactin level is pending. The serum cortisol level is pending at this time as noted. The serum hCG is negative. The plasma rennin is 4.03 and aldosterone is 2 with an aldosterone/rennin ratio of 0.5. With the normal aldosterone level, this would actually exclude the so-called Conn's syndrome or the so-called hyporeninemic, hypoaldosteronism as noted which the most common etiology actually for spon taneous hypokalemia. An ACTH level is still pending and this will exclude the possibility of a very rare phenomenon called ectopic ACTH syndrome presenting as hypokalemia. So there are no overt gastro intestinal losses or adrenal losses otherwise for the spontaneous hypokalemia as noted and given. We will obtain serial chemistries and supplement accordingly as needed. We will actually continue the potassium pharmacotherapy and supplementation, although we are unsure and uncertain yet of the etiolo gy of spontaneous hypokalemia. We will follow. Lula Alberts MD cc: [id number] TT: 02/18/2017 14:42:13 Confirmation # [id number] Dictation # [id number] tn
--- NOTE | 2017-02-18 20:26 | PCM.RRTMUL ---
<Bertrand Chavez - Last Filed: 02/18/17 20:41> OBSTETRICS/GYNECOLOGY NURSE Nurse Assessment - Situation OBSTETRICS/GYNECOLOGY NURSE Responder Arrival Time:: 07:35 - Vital Signs Blood Pressure:: 118/82 Pulse Rate:: 104 Respiratory Rate:: 20 Temperature:: 98.4 F Summary - Summary of Event Summary of Event: OBSTETRICS/GYNECOLOGY NURSE called for pain Pt lying in bed complaining of pain right upper extremity. Patient was refusing tylenol and complained of worsening pain. Otherwise no complaints. PE: VSS Patient lying in bed, mild distress. right arm contracture noted. able to move all extremities except for RUE digits due to pain. Normal breathing pattern. no pedal edema A/P: 41 y/o F, with a past medical history inclusive of HTN, anxiety and hypothyroidism, presented to the ED with complaints of pain, found to be hypokalemic. Patients chart was reviewed. Etiology of hypokalemia unclear, workup suggests extrarenal losses of potassium. MRI to rule out pituitary etiology was negative. Potassium being repleted, Mag and calcium have been WNL. She is being followed by Endo. Last labs reviewed, significant for hypokalemia: 2.5, metabolic alkalosis 7.51 -STAT CMP, Mg, Phos -STAT Toradol 30 mg IVP Will follow up labs Patient seen and examined with Dr. Robbins and senior resident <Ed Robbins - Last Filed: 02/21/17 16:52> OBSTETRICS/GYNECOLOGY NURSE Nurse Assessment - Situation OBSTETRICS/GYNECOLOGY NURSE Responder Arrival Time:: 19:35 (I saw and examined this patient shoulder to shoulder with Dr Chavez. The assessment and plan mentioned above reflect my direct imput. The patient has a contraction of the right hand with the fingers in extension in the form of carpopedal spasm, complaining of severe pain to the hand and fingers. she had received 60mEq of Potassium Chloride Intravenious. Potassium = 2.5MEq an dcalcium 8.5. A&P: # Hypokalemia with carpopedal spasm. - New order for Potassium Chloride 40mEq orally with 60mEq IV over 6 hours ordered. She was alxo given Toradol 30mg IV for the pain. Nephrology on consult. Ed Robbins MD Hospitalist.)
[2017-02-18 21:13] LABS: ALB/GLOB RATIO 1.4 (1.0-2.1); ALKALINE PHOSPHATASE 75 U/L (38-126); ALT/SGPT 34 U/L (9-52); AST/SGOT 44 U/L (14-36); BILIRUBIN,TOTAL 0.3 mg/dl (0.2-1.3); BLOOD UREA NITROGEN 6 mg/dl (7-17); CALCIUM 7.9 mg/dL (8.4-10.2); CARBON DIOXIDE 33 mmol/L (22-30); CHLORIDE 95 mmol/L (98-107); GFR AFRICAN-AMERICAN > 60; GLUCOSE,RANDOM 88 mg/dL (65-105); MAGNESIUM 1.4 MG/DL (1.6-2.3); PHOSPHOROUS 3.5 mg/dl (2.5-4.5); POTASSIUM 2.9 MMOL/L (3.6-5.0); SODIUM 141 mmol/l (132-148); TOTAL PROTEIN 6.7 G/DL (6.3-8.2)
[2017-02-18] MEDS ORDERED: Potassium Chloride 20 mEq ER Tab PO STA (22:00)
--- NOTE | 2017-02-18 22:25 | PN ---
DATE: 02/18/2017 The patient is seen today, 02/18/2017 complaining of bilateral lower extremity weakness. Potassium i s 2.5. blood pressure 118/78, temperature 97.5, respiratory rate 18, and pulse 98. HEENT: Pupils equal, reactive to light. Normal-appearing mucosa of the conjunctivae, oropharyngeal, and nasal membrane mucosa. NECK: Supple, no JVD, no carotid bruit, no lymph node, no thyromegaly. CHEST AND LUNGS: Bilateral symmetrical expansion. CARDIOVASCULAR SYSTEM: PMI not localized. S1, S2, normal additional sounds. ABDOMEN: Normoactive bowel sounds. No tenderness, no organomegaly, no masses. EXTREMITIES: No cyanosis, no clubbing, no edema. CENTRAL NERVOUS SYSTEM: Alert and oriented x3. No neurological deficits could be appreciated. ASSESSMENT: Persistent hypokalemia in spite of multiple supplementation. Etiology is still undeterm ined. Discussed with Dr. Dion Rossi, who will evaluate the patient first thing in the morning. PLAN: We will monitor electrolytes also. Emery Barton MD cc: [phone] TT: 02/18/2017 22:24:52 Confirmation # [id number] Dictation # [id number] jn
[2017-02-18] MEDS: Magnesium Oxide 400 mg Tab UD PO SCH (23:45)
[2017-02-18] MEDS: Potassium CL 10mEq/100ml 100 ML IVPB SCH (23:46)
[2017-02-19] MEDS: Potassium CL 10mEq/100ml 100 ML IVPB SCH ×5 (01:07→09:13)
[2017-02-19] MEDS: Levothyroxine 50 MCG TAB PO SCH (06:23)
[2017-02-19 07:00] LABS: ALB/GLOB RATIO 1.3 (1.0-2.1); ALKALINE PHOSPHATASE 66 U/L (38-126); ALT/SGPT 30 U/L (9-52); AST/SGOT 37 U/L (14-36); BILIRUBIN,TOTAL 0.3 mg/dl (0.2-1.3); BLOOD UREA NITROGEN 6 mg/dl (7-17); CALCIUM 7.9 mg/dL (8.4-10.2); CARBON DIOXIDE 34 mmol/L (22-30); CHLORIDE 95 mmol/L (98-107); GFR AFRICAN-AMERICAN > 60; GLUCOSE,RANDOM 72 mg/dL (65-105); POTASSIUM 3.1 MMOL/L (3.6-5.0); SODIUM 141 mmol/l (132-148); TOTAL PROTEIN 6.4 G/DL (6.3-8.2)
[2017-02-19] MEDS: Pantoprazole 40 mg EC Tab PO SCH (09:12)
[2017-02-19] MEDS: Magnesium Oxide 400 mg Tab UD PO SCH ×2 (09:12→17:12)
[2017-02-19] MEDS: Potassium Chloride 20 mEq ER Tab PO SCH ×2 (09:13→11:24)
[2017-02-19] MEDS: buPROPion SR 150 MG TABLET PO SCH (09:13)
[2017-02-19 09:22] LABS: URINE 24 HOUR POTASSIUM 19.8 mmol/L (25-125)
--- NOTE | 2017-02-19 10:10 | CP.PCM.PN ---
Subjective - Date & Time of Evaluation Date of Evaluation: 02/19/17 Time of Evaluation: 10:02 - Subjective Subjective: complains of pain and cramping in R arm and r leg Objective - Vital Signs/Intake and Output Vital Signs (last 24 hours): Temp Pulse Resp BP Pulse Ox 98.0 F 94 H 20 108/77 99 02/19/17 08:12 02/19/17 08:12 02/19/17 08:12 02/19/17 08:12 02/19/17 08:12 - Medications Medications: Current Medications Acetaminophen (Tylenol 325mg Tab) 650 mg PO Q6 PRN PRN Reason: Pain, moderate (4-7) Bupropion HCl (Wellbutrin Sr 150 Mg) 150 mg PO DAILY [facility] Last Admin: 02/19/17 09:13 Dose: 150 mg Clonazepam (Klonopin) 1 mg PO BID [facility] Last Admin: 02/19/17 09:15 Dose: 1 mg Levothyroxine Sodium (Synthroid) 50 mcg PO DAILY@0630 [facility] Last Admin: 02/19/17 06:23 Dose: 50 mcg Magnesium Oxide (Mag-Ox) 400 mg PO BID [facility] Last Admin: 02/19/17 09:12 Dose: 400 mg Ondansetron HCl (Zofran Inj) 4 mg IVP Q6 PRN PRN Reason: Nausea/Vomiting Last Admin: 02/18/17 20:59 Dose: 4 mg Pantoprazole Sodium (Protonix Ec Tab) 40 mg PO DAILY [facility] Last Admin: 02/19/17 09:12 Dose: 40 mg Potassium Chloride (K-Dur 20 Meq Er Tab) 40 meq PO ONCE [facility] Last Admin: 02/19/17 09:13 Dose: 40 meq Potassium Chloride (K-Dur 20 Meq Er Tab) 40 meq PO DAILY [facility] Last Admin: 02/18/17 08:40 Dose: 40 meq Potassium Chloride (K-Dur 20 Meq Er Tab) 60 meq PO ONCE ONE Stop: 02/19/17 14:01 Zolpidem Tartrate (Ambien) 5 mg PO HS PRN PRN Reason: Insomnia Last Admin: 02/18/17 23:15 Dose: 5 mg - Labs Labs: 02/15/17 04:00 02/19/17 05:30 - Constitutional Appears: Non-toxic - Head Exam Head Exam: ATRAUMATIC - Eye Exam Eye Exam: Normal appearance - ENT Exam Additional comments: poor dentition - Neck Exam Neck Exam: Normal Inspection - Respiratory Exam Respiratory Exam: Clear to Ausculation Bilateral - Cardiovascular Exam Cardiovascular Exam: +S1, +S2 - GI/Abdominal Exam GI & Abdominal Exam: Normal Bowel Sounds - Extremities Exam Extremities Exam: Normal Inspection - Neurological Exam Neurological Exam: Alert, Oriented x3 - Psychiatric Exam Psychiatric exam: Normal Affect - Skin Skin Exam: Normal Color Assessment and Plan - Assessment and Plan (Free Text) Assessment: hypokalemia / mucousy stools / hypotension / alkalosis / anxiety/hypomag plan: hypok- 24 urine K and spot urine k/cr ratio are both suggestive of Non - Renal potassium wasting. This would suggest etiology as either transceullar shift v GI loss. Her GI story is interesting - she previously had an eating disorder w / surreptious vomitting - but she denies having done this for the last couple years. She has a hx ~ 5 years ago of several "stomach" ulcers, and at that time a colonoscopy that revealed several polyps that she was supposed to return back for a repeat colo 6 months later to have removed. She has some unintentional weightloss, mucous discharge from stool x 1.5-2 years and blood in stool. DDx for gi wasting would include villous adenoma , given multiple gastric ulcers previously ozzy reardon would be on ddx for gi source. Re: gi c/s Re: transceullar shift - it seems somewhat unlikely given that lack of response to iv/oral k, however given symptoms of palpitations/hotflashes will check plasma metanephrines. re: cramping today - discussed w/ pct to check stat mg and give 2 grams IV now. Re: K supplementation re: 60meq po tid. recheck k this afternoon.
[2017-02-19 13:14] LABS: CORTISOL AM 1.9 ug/dL (4.46-22.7)
[2017-02-19] MEDS ORDERED: Potassium Chloride 20 mEq ER Tab PO ONE (14:00)
--- NOTE | 2017-02-19 17:26 | PN ---
DATE: 02/19/2017 ROOM: 418. SUBJECTIVE: This is a 41-year-old female with recent generalized body weakness, specifically localiz ed in the lower extremities with associated painful paresthesias and is now being followed closely fo r metabolic management. She has had significant spontaneous hypokalemia with no overt gastrointestin al losses or diuretic use as noted. Her latest chemistry showed a BUN of 6, sodium 141, potassium 3. 1, chloride 95, CO2 34, glucose 72 and creatinine 0.8. Her potassium level last night was 2.9 and has received multiple potassium supplementation by IV piggyback as given. Her cortisol level has been r eported as 1.9 mcg/dL with a prolactin level of 44.9 and a luteinizing hormone of 5.4 and an FSH of 4 .0. Her MRI of the brain did not show any significant mass lesion in the pituitary area as noted. N o overt adenoma or mass lesion or hydrocephalus was seen. At this time, we are still awaiting the re sults of the ACTH levels sent out. Her plasma rennin was 4.03 with an aldosterone level of 2. So at this time, we will do a Cortrosyn, ACTH stimulation test for tomorrow morning to rule out any underl monse primary adrenal insufficiency. Detailed orders will be undertaken and given out. We will follo w and advise accordingly. Lula Alberts MD cc: [id number] TT: 02/19/2017 17:26:03 Confirmation # [id number] Dictation # [id number] tamera
[2017-02-19 22:57] LABS: BLOOD UREA NITROGEN 9 mg/dl (7-17); CALCIUM 8.6 mg/dL (8.4-10.2); CARBON DIOXIDE 31 mmol/L (22-30); CHLORIDE 90 mmol/L (98-107); GFR AFRICAN-AMERICAN > 60; GLUCOSE,RANDOM 91 mg/dL (65-105); POTASSIUM 3.1 MMOL/L (3.6-5.0); SODIUM 136 mmol/l (132-148)
--- NOTE | 2017-02-20 02:49 | PN ---
DATE: 02/19/2017 SUBJECTIVE: The patient is seen today, 02/19/2017. Potassium is 3.1. The patient had urine and potassium is less 20, as per Dr. Dion Rossi. PHYSICAL EXAMINATION: VITAL SIGNS: Blood pressure is 107/70, temperature 97.4, respiratory rate 20, and pulse 90. HEENT: Pupils equal, reactive to light. Normal-appearing mucosa of the conjunctivae, oropharyngeal and nasal membrane mucosa. NECK: Supple, no JVD, no carotid bruit, no lymph node, no thyromegaly. CHEST AND LUNGS: Bilateral symmetrical expansion, good air exchange, no rales, no rhonchi. CARDIOVASCULAR: PMI not localized. S1, S2. No additional sounds. ABDOMEN: Normoactive bowel sounds, no tenderness, no organomegaly, no masses. EXTREMITIES: No cyanosis, no clubbing, no edema. CENTRAL NERVOUS SYSTEM: Alert, awake, oriented x 3. No neurological deficits could be appreciated. ASSESSMENT: Persistent hypokalemia, and as per nephrology, it is not due to urinary potassium loss. Rule out gastrointestinal potassium loss. PLAN: We will supplement potassium and magnesium and follow recommendations of endocrinology, and we will call gastroenterology consult for possible colonoscopy to rule out any villous adenoma. Emery aBrton MD cc: [phone] TT: 02/20/2017 02:48:30 Confirmation # [id number] Dictation # [id number] vn MTDD
[2017-02-20] MEDS: Levothyroxine 50 MCG TAB PO SCH (06:10)
[2017-02-20 07:57] LABS: PHOSPHOROUS 4.7 mg/dl (2.5-4.5)
[2017-02-20] MEDS: buPROPion SR 150 MG TABLET PO SCH (09:32)
[2017-02-20] MEDS: Potassium Chloride 20 mEq ER Tab PO SCH (09:32)
[2017-02-20] MEDS: Magnesium Oxide 400 mg Tab UD PO SCH ×2 (09:33→16:13)
[2017-02-20] MEDS: Pantoprazole 40 mg EC Tab PO SCH (09:33)
[2017-02-20 09:49] LABS: BLOOD UREA NITROGEN 9 mg/dl (7-17); CALCIUM 8.7 mg/dL (8.4-10.2); CARBON DIOXIDE 36 mmol/L (22-30); CHLORIDE 92 mmol/L (98-107); GFR AFRICAN-AMERICAN > 60; GLUCOSE,RANDOM 75 mg/dL (65-105); POTASSIUM 2.8 MMOL/L (3.6-5.0); SODIUM 143 mmol/l (132-148)
[2017-02-20] MEDS ORDERED: Potassium Chloride 20 mEq ER Tab PO ONE ×2 (10:36→16:30)
--- NOTE | 2017-02-20 10:44 | CP.PCM.PN ---
Subjective - Date & Time of Evaluation Date of Evaluation: 02/20/17 Time of Evaluation: 10:42 - Subjective Subjective: Patient and bed appears to be comfortable She is still complaining of losing some mucus from the rectum Serum potassium is low again today to give stat 60 mEq by mouth and to monitor potassium continue potassium chloride 60 mEq 3 times a day for the next 24 hours So I ordered a stat serum magnesium if it slow patient may need also intravenous magnesium Objective - Vital Signs/Intake and Output Vital Signs (last 24 hours): Temp Pulse Resp BP Pulse Ox 97.8 F 83 20 116/75 100 02/20/17 08:17 02/20/17 08:17 02/20/17 08:17 02/20/17 08:17 02/20/17 08:17 - Medications Medications: Current Medications Acetaminophen (Tylenol 325mg Tab) 650 mg PO Q6 PRN PRN Reason: Pain, moderate (4-7) Last Admin: 02/20/17 04:47 Dose: 650 mg Bupropion HCl (Wellbutrin Sr 150 Mg) 150 mg PO DAILY [facility] Last Admin: 02/20/17 09:32 Dose: 150 mg Clonazepam (Klonopin) 1 mg PO BID [facility] Last Admin: 02/20/17 09:31 Dose: 1 mg Levothyroxine Sodium (Synthroid) 50 mcg PO DAILY@0630 [facility] Last Admin: 02/20/17 06:10 Dose: 50 mcg Magnesium Oxide (Mag-Ox) 400 mg PO BID [facility] Last Admin: 02/20/17 09:33 Dose: 400 mg Ondansetron HCl (Zofran Inj) 4 mg IVP Q6 PRN PRN Reason: Nausea/Vomiting Last Admin: 02/20/17 06:08 Dose: 4 mg Pantoprazole Sodium (Protonix Ec Tab) 40 mg PO DAILY [facility] Last Admin: 02/20/17 09:33 Dose: 40 mg Potassium Chloride (K-Dur 20 Meq Er Tab) 40 meq PO ONCE [facility] Last Admin: 02/19/17 09:13 Dose: 40 meq Potassium Chloride (K-Dur 20 Meq Er Tab) 40 meq PO DAILY [facility] Last Admin: 02/20/17 09:32 Dose: 40 meq Potassium Chloride (Klor-Con 10) 60 meq PO ONCE ONE Stop: 02/20/17 10:37 Zolpidem Tartrate (Ambien) 5 mg PO HS PRN PRN Reason: Insomnia Last Admin: 02/20/17 00:00 Dose: 5 mg - Labs Labs: 02/15/17 04:00 02/20/17 09:29 Assessment and Plan (1) Hypokalemia Assessment & Plan: as noted by Dr Ashley plan: hypok- 24 urine K and spot urine k/cr ratio are both suggestive of Non - Renal potassium wasting. This would suggest etiology as either transceullar shift v GI loss. Her GI story is interesting - she previously had an eating disorder w / surreptious vomitting - but she denies having done this for the last couple years. She has a hx ~ 5 years ago of several "stomach" ulcers, and at that time a colonoscopy that revealed several polyps that she was supposed to return back for a repeat colo 6 months later to have removed. She has some unintentional weightloss, mucous discharge from stool x 1.5-2 years and blood in stool. DDx for gi wasting would include villous adenoma , given multiple gastric ulcers previously ozzy reardon would be on ddx for gi source. Re: gi c/s Re: transceullar shift - it seems somewhat unlikely given that lack of response to iv/oral k, however given symptoms of palpitations/hotflashes will check plasma metanephrines. re: cramping today - discussed w/ historiography teacher to check stat mg and give 2 grams IV now. Re: K supplementation re: 60meq po tid. recheck k this afternoon. Status: Acute
[2017-02-20] MEDS: Potassium CL 10mEq/100ml 100 ML IVPB SCH ×2 (11:33→16:08)
--- NOTE | 2017-02-20 17:04 | PN ---
DATE: 02/20/2017 LOCATION: Room 418, bed 2. SUBJECTIVE: This is a 41-year-old female with generalized body weakness and painful paresthesias, es pecially in the lower extremities and is now being followed closely for metabolic management. She co ntinues to have spontaneous hypokalemia despite the very high dose supplementation of potassium by IV piggyback as noted. As mentioned previously, there is no overt GI losses of potassium, nor any zafar l nephropathy at this time. Her latest chemistry showed a BUN of 9, sodium 143, potassium 2.8, chloride 92, CO2 36, glucose 75, and creatinine 0.7. Her hormone levels showed a surprising elevati on of the prolactin at 44.9 with a luteinizing hormone of 5.4 and follicle stimulating hormone of 4.0 . She admits to persistent amenorrhea for some years now and clinically has overt galactorrhea as no dorys. 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 PLAN OF MANAGEMENT: We will do a Cortrosyn stimulation test to exclude any underlying hypoadrenalism or adrenal insufficiency and this test was actually done today as ordered. We will also add bromocr iptine or Parlodel at 2.5 mg once daily at bedtime to optimize her hormonal imbalance and persistent amenorrhea and galactorrhea as noted. We will await the results of the Cortrosyn stimulation test an d hopefully it comes back tonight or tomorrow and this will guide ongoing therapy as indicated. We w ill follow and advise accordingly. Lula Alberts MD cc: [id number] TT: 02/20/2017 17:03:38 Confirmation # [id number] Dictation # [id number] tamera
--- NOTE | 2017-02-20 21:11 | PN ---
DATE: 02/20/2017 SUBJECTIVE: The patient is seen today, February 20, 2017. She still has numbness of of the upper extremities. PHYSICAL EXAMINATION VITAL SIGNS: Bp 117/85, pulse 104. HEENT: Pupils equal and reactive to light. NECK: No JVD, no carotid bruit, no lymph node, no thyromegaly. CHEST AND LUNGS: Equal lung expansion. , no rales , no rhonchi. CARDIOVASCULAR: PMI not localized. S1, S2. No additional sounds. ABDOMEN: Normoactive bowel sounds, no tenderness, no organomegaly, no masses. EXTREMITIES: No cyanosis, no clubbing, no edema. CENTRAL NERVOUS SYSTEM: Alert, awake, oriented x 3. No neurological deficits could be appreciated. ASSESSMENT: Persistent hypokalemia with workup suggestive of nonurinary loss of potassium. PLAN: Follow up GI consult and recommendations. Continue potassium supplement. [facility] Ana Barton MD cc: [phone] TT: 02/20/2017 21:10:42 Confirmation # [id number] Dictation # [id number] ln MTDD
--- NOTE | 2017-02-20 21:25 | CP.PCM.CON ---
History of Present Illness - History of Present Illness History of Present Illness: GI consult requested by Dr Barton- This is a 41 y/o female with Hx/o HTN, Hypothyroidism, depression on anti depressants, anxiety and past history. 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 She gives history of solitary gastric ulcer diagnosed on endoscopy in 2007. She later changed her story to duodenal ulcers when I questioned about ZE syndrome. She has been on chronic PPI therapy for ulcer. She started seeing a battery wrecker operator after her last admission for hypokalemia and was ordered to get Ct scan. She denies diarrhea, and vomiting or purging. She denies surreptious use of laxatives. She denies diuretic use or antibiotic use or low calorie diet. Review of Systems - Review of Systems Review of Systems: 12 point ROS unremarkable except that documented in HPI Past Patient History - Infectious Disease Hx of Infectious Diseases: None - Past Medical History & Family History Past Medical History?: Yes - Past Social History Smoking Status: Never Smoked - CARDIAC Hx Cardiac Disorders: No - PULMONARY Hx Respiratory Disorders: No - NEUROLOGICAL Hx Neurological Disorder: No - HEENT Hx HEENT Problems: No - RENAL Hx Chronic Kidney Disease: No - ENDOCRINE/METABOLIC Hx Endocrine Disorders: Yes Hx Hypothyroidism: Yes - HEMATOLOGICAL/ONCOLOGICAL Hx Blood Disorders: Yes Hx AIDS: No Hx Anemia: Yes Hx Human Immunodeficiency Virus (HIV): No - INTEGUMENTARY Hx Dermatological Problems: No - MUSCULOSKELETAL/RHEUMATOLOGICAL Hx Musculoskeletal Disorders: No Hx Falls: No - GASTROINTESTINAL Hx Gastrointestinal Disorders: Yes Hx Gastritis: Yes - GENITOURINARY/GYNECOLOGICAL Hx Genitourinary Disorders: No - PSYCHIATRIC Hx Psychophysiologic Disorder: Yes Hx Anxiety: Yes Hx Substance Use: No - SURGICAL HISTORY Hx Surgeries: Yes Hx Herniorrhaphy: Yes (Bilateral inguinal) Other/Comment: inguinal hernia sx - ANESTHESIA Hx Anesthesia: Yes Hx Anesthesia Reactions: No Hx Malignant Hyperthermia: No Meds Allergies/Adverse Reactions: Allergies Allergy/AdvReac Type Severity Reaction Status Date / Time No Known Allergies Allergy Verified 12/01/16 06:10 - Medications Medications: Current Medications Acetaminophen (Tylenol 325mg Tab) 650 mg PO Q6 PRN PRN Reason: Pain, moderate (4-7) Last Admin: 02/20/17 04:47 Dose: 650 mg Bromocriptine Mesylate (Parlodel) 2.5 mg PO DAILY [facility] Bupropion HCl (Wellbutrin Sr 150 Mg) 150 mg PO DAILY [facility] Last Admin: 02/20/17 09:32 Dose: 150 mg Levothyroxine Sodium (Synthroid) 50 mcg PO DAILY@0630 [facility] Last Admin: 02/20/17 06:10 Dose: 50 mcg Magnesium Oxide (Mag-Ox) 400 mg PO BID [facility] Last Admin: 02/20/17 16:13 Dose: 400 mg Ondansetron HCl (Zofran Inj) 4 mg IVP Q6 PRN PRN Reason: Nausea/Vomiting Last Admin: 02/20/17 15:30 Dose: 4 mg Pantoprazole Sodium (Protonix Ec Tab) 40 mg PO DAILY [facility] Last Admin: 02/20/17 09:33 Dose: 40 mg Potassium Chloride (K-Dur 20 Meq Er Tab) 40 meq PO ONCE [facility] Last Admin: 02/19/17 09:13 Dose: 40 meq Potassium Chloride (K-Dur 20 Meq Er Tab) 40 meq PO DAILY [facility] Last Admin: 02/20/17 09:32 Dose: 40 meq Zolpidem Tartrate (Ambien) 5 mg PO HS PRN PRN Reason: Insomnia Last Admin: 02/20/17 00:00 Dose: 5 mg Physical Exam - Constitutional Appears: Non-toxic, No Acute Distress - Head Exam Head Exam: ATRAUMATIC, NORMAL INSPECTION, NORMOCEPHALIC - Eye Exam Eye Exam: EOMI, Normal appearance, PERRL Pupil Exam: NORMAL ACCOMODATION, PERRL - Respiratory Exam Respiratory Exam: Clear to Auscultation Bilateral, NORMAL BREATHING PATTERN - Cardiovascular Exam Cardiovascular Exam: REGULAR RHYTHM - GI/Abdominal Exam GI & Abdominal Exam: Hyperactive Bowel Sounds, Normal Bowel Sounds, Soft. absent: Tenderness - Extremities Exam Extremities exam: Positive for: full ROM, normal inspection - Neurological Exam Neurological exam: Alert, Normal Gait, Oriented x3 - Psychiatric Exam Psychiatric exam: Normal Affect, Normal Mood - Skin Skin Exam: Normal Color, Warm Results - Vital Signs Recent Vital Signs: Last Vital Signs Temp 97.5 F L 02/20/17 19:24 Pulse 104 H 02/20/17 19:24 Resp 20 02/20/17 19:24 BP 117/85 02/20/17 19:24 Pulse Ox 100 02/20/17 19:24 - Labs Result Diagrams: 02/15/17 04:00 02/20/17 09:29 Labs: Laboratory Results - last 24 hr 02/18/17 02/19/17 02/20/17 05:35 22:44 04:50 Sodium 136 Potassium 3.1 L Chloride 90 L Carbon Dioxide 31 H Anion Gap 18 BUN 9 Creatinine 0.7 Est GFR ( Amer) > 60 Est GFR (Non-Af Amer) > 60 Random Glucose 91 Calcium 8.6 Phosphorus 4.7 H Magnesium Cortisol AM Sample ACTH <5 L 02/20/17 02/20/17 02/20/17 07:00 09:29 12:20 Sodium 143 Potassium 2.8 L Chloride 92 L Carbon Dioxide 36 H Anion Gap 18 BUN 9 Creatinine 0.7 Est GFR ( Amer) > 60 Est GFR (Non-Af Amer) > 60 Random Glucose 75 Calcium 8.7 Phosphorus Magnesium 2.9 H Cortisol AM Sample 20.1 ACTH Assessment & Plan - Assessment and Plan (Free Text) Assessment: 41 yr old F admitted with hypokalemia resistant to repletion with no diuretic use, or surreptious use of laxatives, with no diarrhea or vomiting. Unclear etiology. In process of renal work up. Associated with hypomagnesemia. Will hold PPi therapy as hypomagnesemia is a known side effect of PPI therapy. The anti depressants she is on does not cause hypomagnesium. 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 I would try to obtain results of her past endoscopy. Plan: - Hold PPI - Check medication list - Constipation- will give stool softeners and titrate to one BM per day - Obtain result of past endoscopy - Unable to do endoscopy with low levels as her threshold of seizure increases with low K and administration of propofol - supplement Mg - Ct scan reviewed- No bowel abnormalities - Will follow - electrolyte supplement as per nephrology - Date & Time Date: 02/20/17 Time: 21:25
[2017-02-20 21:57] LABS: CORTISOL AM 10.4 ug/dL (4.46-22.7)
[2017-02-21] MEDS: Potassium CL 10mEq/100ml 100 ML IVPB SCH ×6 (00:37→16:37)
[2017-02-21] MEDS: Levothyroxine 50 MCG TAB PO SCH (06:02)
[2017-02-21] MEDS ORDERED: Simethicone 80 mg Chewtab PO PRN (06:04)
[2017-02-21 07:33] LABS: ALB/GLOB RATIO 1.3 (1.0-2.1); ALKALINE PHOSPHATASE 75 U/L (38-126); ALT/SGPT 22 U/L (9-52); AST/SGOT 29 U/L (14-36); BILIRUBIN,TOTAL 0.3 mg/dl (0.2-1.3); BLOOD UREA NITROGEN 14 mg/dl (7-17); CALCIUM 8.8 mg/dL (8.4-10.2); CARBON DIOXIDE 31 mmol/L (22-30); CHLORIDE 95 mmol/L (98-107); GFR AFRICAN-AMERICAN > 60; GLUCOSE,RANDOM 63 mg/dL (65-105); POTASSIUM 3.5 MMOL/L (3.6-5.0); SODIUM 140 mmol/l (132-148); TOTAL PROTEIN 6.5 G/DL (6.3-8.2)
[2017-02-21] MEDS: Potassium Chloride 20 mEq ER Tab PO SCH (09:02)
[2017-02-21] MEDS: buPROPion SR 150 MG TABLET PO SCH (09:03)
[2017-02-21] MEDS: Pantoprazole 40 mg EC Tab PO SCH (09:14)
--- NOTE | 2017-02-21 09:30 | CP.PCM.PN ---
Subjective - Date & Time of Evaluation Date of Evaluation: 02/21/17 Time of Evaluation: 09:28 - Subjective Subjective: No significant changes reported Patient is stable Objective - Vital Signs/Intake and Output Vital Signs (last 24 hours): Temp Pulse Resp BP Pulse Ox 97.6 F 88 20 111/75 98 02/21/17 08:39 02/21/17 08:39 02/21/17 08:39 02/21/17 08:39 02/21/17 08:39 - Medications Medications: Current Medications Acetaminophen (Tylenol 325mg Tab) 650 mg PO Q6 PRN PRN Reason: Pain, moderate (4-7) Last Admin: 02/20/17 21:01 Dose: 650 mg Bromocriptine Mesylate (Parlodel) 2.5 mg PO DAILY [facility] Last Admin: 02/21/17 09:27 Dose: Not Given Bupropion HCl (Wellbutrin Sr 150 Mg) 150 mg PO DAILY [facility] Last Admin: 02/21/17 09:03 Dose: 150 mg Levothyroxine Sodium (Synthroid) 50 mcg PO DAILY@0630 [facility] Last Admin: 02/21/17 06:02 Dose: 50 mcg Ondansetron HCl (Zofran Inj) 4 mg IVP Q6 PRN PRN Reason: Nausea/Vomiting Last Admin: 02/20/17 21:01 Dose: 4 mg Potassium Chloride (K-Dur 20 Meq Er Tab) 40 meq PO ONCE [facility] Last Admin: 02/19/17 09:13 Dose: 40 meq Potassium Chloride (K-Dur 20 Meq Er Tab) 40 meq PO BID [facility] Simethicone (Mylicon Chew Tab) 80 mg PO PCHS PRN PRN Reason: Flatulence Zolpidem Tartrate (Ambien) 5 mg PO HS PRN PRN Reason: Insomnia Last Admin: 02/20/17 23:09 Dose: 5 mg - Labs Labs: 02/15/17 04:00 02/21/17 06:15 - Constitutional Appears: No Acute Distress - ENT Exam ENT Exam: Mucous Membranes Moist - Respiratory Exam Respiratory Exam: absent: Chest Wall Tenderness - GI/Abdominal Exam GI & Abdominal Exam: Normal Bowel Sounds. absent: Guarding - Extremities Exam Extremities Exam: absent: Calf Tenderness - Back Exam Back Exam: absent: CVA tenderness (L), CVA tenderness (R) - Neurological Exam Neurological Exam: Alert Assessment and Plan (1) Hypokalemia Assessment & Plan: Hypokalemia probably related to rectal mass from perhaps villous adenoma? Waiting for colonoscopy for further evaluation And meantime continue potassium supplement probably she will need at least 60 mEq twice a day and continue monitor. No need for magnesium ,serum magnesium noted. Status: Acute
[2017-02-21] MEDS: Naproxen 500 MG TAB PO SCH ×3 (11:33→21:29)
--- NOTE | 2017-02-21 11:55 | CP.PCM.PN ---
Subjective - Date & Time of Evaluation Date of Evaluation: 02/21/17 Time of Evaluation: 09:00 - Subjective Subjective: Patient seen at bedside this am. No new complains. Potassium 3.5. Feels well. Nausea subsided. CT scan reviewed. No rectal or colon mass Objective - Vital Signs/Intake and Output Vital Signs (last 24 hours): Temp Pulse Resp BP Pulse Ox 97.6 F 88 20 111/75 98 02/21/17 08:39 02/21/17 09:00 02/21/17 08:39 02/21/17 08:39 02/21/17 08:39 - Medications Medications: Current Medications Acetaminophen (Tylenol 325mg Tab) 650 mg PO Q6 PRN PRN Reason: Pain, moderate (4-7) Last Admin: 02/20/17 21:01 Dose: 650 mg Bromocriptine Mesylate (Parlodel) 2.5 mg PO DAILY [facility] Last Admin: 02/21/17 11:34 Dose: 2.5 mg Bupropion HCl (Wellbutrin Sr 150 Mg) 150 mg PO DAILY [facility] Last Admin: 02/21/17 09:03 Dose: 150 mg Clonazepam (Klonopin) 1 mg PO BID [facility] Last Admin: 02/21/17 11:12 Dose: 1 mg Levothyroxine Sodium (Synthroid) 50 mcg PO DAILY@0630 [facility] Last Admin: 02/21/17 06:02 Dose: 50 mcg Naproxen (Naproxen) 500 mg PO Q12 [facility] Last Admin: 02/21/17 11:44 Dose: Not Given Ondansetron HCl (Zofran Inj) 4 mg IVP Q6 PRN PRN Reason: Nausea/Vomiting Last Admin: 02/21/17 09:58 Dose: 4 mg Potassium Chloride (K-Dur 20 Meq Er Tab) 40 meq PO ONCE [facility] Last Admin: 02/19/17 09:13 Dose: 40 meq Potassium Chloride (K-Dur 20 Meq Er Tab) 40 meq PO BID [facility] Simethicone (Mylicon Chew Tab) 80 mg PO PCHS PRN PRN Reason: Flatulence Zolpidem Tartrate (Ambien) 5 mg PO HS PRN PRN Reason: Insomnia Last Admin: 02/20/17 23:09 Dose: 5 mg - Labs Labs: 02/15/17 04:00 04/07/17 06:15 - Constitutional Appears: Well, Non-toxic, No Acute Distress - Head Exam Head Exam: ATRAUMATIC, NORMAL INSPECTION, NORMOCEPHALIC - Eye Exam Pupil Exam: NORMAL ACCOMODATION, PERRL - Respiratory Exam Respiratory Exam: Clear to Ausculation Bilateral, NORMAL BREATHING PATTERN - Cardiovascular Exam Cardiovascular Exam: REGULAR RHYTHM, RRR, +S1, +S2. absent: Murmur - GI/Abdominal Exam GI & Abdominal Exam: Soft, Normal Bowel Sounds. absent: Tenderness - Neurological Exam Neurological Exam: Alert, Awake, Normal Gait, Oriented x3 - Psychiatric Exam Psychiatric exam: Normal Affect, Normal Mood Assessment and Plan - Assessment and Plan (Free Text) Assessment: 41 yr old F admitted with hypokalemia resistant to repletion with no diuretic use, or surreptious use of laxatives, with no diarrhea or vomiting. Unclear etiology. In process of renal work up. Associated with hypomagnesemia. Will hold PPi therapy as hypomagnesemia is a known side effect of PPI therapy. The anti depressants she is on does not cause hypomagnesium. 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 I would try to obtain results of her past endoscopy. Today she insists she wants inpatient EGD / colonoscopy as she cannot take more time off from work and cant follow as outpatient Plan: - replete electrolytes - tentative EGD/ colonoscopy friday - hold PPI - Diet as tolerated - discussed with team - Ct scan colon has no colon mass lesions
--- NOTE | 2017-02-21 13:49 | PN ---
DATE: 02/21/2017 ROOM: 418. This is a 41-year-old female with recent spontaneous hypokalemia with an extensive GI and nephrology workup with no overt etiology for the aforementioned spontaneous hypoglycemic event as noted. She re jose f clinically and biochemically euadrenal at this time and the latest chemistries showed a BUN of 14, sodium 140, potassium 3.5, chloride 95, CO2 31, glucose 63 and creatinine 1.0. Her latest prolac tin level is still pending at this time, but the initial one was 44.9, which is elevated. The result s of the Cortrosyn stimulation test showed a basal cortisol of 10.4 mcg with a stimulation or post AC TH cortisol of 20.1, which is actually normal and indicative of a normal ACTH cortisol feedback respo nse. We will obtain serial chemistries and supplement accordingly as needed. We will continue the bromocr iptine given as 2.5 mg once daily as indefinite management. We will follow and advise accordingly. Lula Alberts MD cc: [id number] TT: 02/21/2017 13:48:32 Confirmation # [id number] Dictation # [id number]
[2017-02-21] MEDS ORDERED: Potassium Chloride 20 mEq ER Tab PO SCH (17:00)
[2017-02-22] MEDS: Levothyroxine 50 MCG TAB PO SCH (06:33)
[2017-02-22 08:06] LABS: BLOOD UREA NITROGEN 14 mg/dl (7-17); CALCIUM 9.1 mg/dL (8.4-10.2); CARBON DIOXIDE 31 mmol/L (22-30); CHLORIDE 96 mmol/L (98-107); GFR AFRICAN-AMERICAN > 60; GLUCOSE,RANDOM 76 mg/dL (65-105); MAGNESIUM 1.9 MG/DL (1.6-2.3); POTASSIUM 3.2 MMOL/L (3.6-5.0); SODIUM 140 mmol/l (132-148)
[2017-02-22] MEDS: Potassium Chloride 20 mEq ER Tab PO SCH ×5 (09:11→17:27)
[2017-02-22] MEDS: buPROPion SR 150 MG TABLET PO SCH (09:12)
[2017-02-22] MEDS: Naproxen 500 MG TAB PO SCH ×2 (09:12→21:55)
[2017-02-22] MEDS ORDERED: Olopatadine 0.1% Opht SOLN OU PRN (11:49)
--- NOTE | 2017-02-22 12:48 | CP.PCM.PN ---
Subjective - Date & Time of Evaluation Date of Evaluation: 02/22/17 Time of Evaluation: 12:45 - Subjective Subjective: seen and examined feeling reasoanbly well Objective - Vital Signs/Intake and Output Vital Signs (last 24 hours): Temp Pulse Resp BP Pulse Ox 97.7 F 101 H 18 103/70 100 02/22/17 12:20 02/22/17 12:20 02/22/17 12:20 02/22/17 12:20 02/22/17 12:20 - Medications Medications: Current Medications Acetaminophen (Tylenol 325mg Tab) 650 mg PO Q6 PRN PRN Reason: Pain, moderate (4-7) Last Admin: 02/20/17 21:01 Dose: 650 mg Bromocriptine Mesylate (Parlodel) 2.5 mg PO DAILY [facility] Last Admin: 02/22/17 09:13 Dose: 2.5 mg Bupropion HCl (Wellbutrin Sr 150 Mg) 150 mg PO DAILY [facility] Last Admin: 02/22/17 09:12 Dose: 150 mg Clonazepam (Klonopin) 1 mg PO BID [facility] Last Admin: 02/22/17 09:12 Dose: 1 mg Lactulose (Enulose) 20 gm PO Q4H [facility] Levothyroxine Sodium (Synthroid) 50 mcg PO DAILY@0630 [facility] Last Admin: 02/22/17 06:33 Dose: 50 mcg Loratadine (Claritin) 10 mg PO DAILY [facility] Naproxen (Naproxen) 500 mg PO Q12 [facility] Last Admin: 02/22/17 09:12 Dose: 500 mg Olopatadine HCl (Patanol 0.1% Opht Soln) 1 drop OU BID PRN PRN Reason: Allergy symptoms Ondansetron HCl (Zofran Inj) 4 mg IVP Q6 PRN PRN Reason: Nausea/Vomiting Last Admin: 02/22/17 09:13 Dose: 4 mg Potassium Chloride (K-Dur 20 Meq Er Tab) 40 meq PO ONCE [facility] Last Admin: 02/22/17 09:11 Dose: 40 meq Potassium Chloride (K-Dur 20 Meq Er Tab) 40 meq PO TID [facility] Simethicone (Mylicon Chew Tab) 80 mg PO PCHS PRN PRN Reason: Flatulence Zolpidem Tartrate (Ambien) 5 mg PO HS PRN PRN Reason: Insomnia Last Admin: 02/22/17 01:32 Dose: 5 mg - Labs Labs: 02/15/17 04:00 02/22/17 06:30 - Constitutional Appears: Non-toxic - Head Exam Head Exam: ATRAUMATIC - Eye Exam Eye Exam: Normal appearance - ENT Exam Additional comments: poor dentition - Neck Exam Neck Exam: Normal Inspection - Respiratory Exam Respiratory Exam: NORMAL BREATHING PATTERN - Cardiovascular Exam Cardiovascular Exam: +S1, +S2 - GI/Abdominal Exam GI & Abdominal Exam: Normal Bowel Sounds - Extremities Exam Extremities Exam: Normal Inspection - Back Exam Back Exam: NORMAL INSPECTION - Neurological Exam Neurological Exam: Alert, Oriented x3 - Psychiatric Exam Psychiatric exam: Normal Affect - Skin Skin Exam: Normal Color Assessment and Plan - Assessment and Plan (Free Text) Assessment: hypokalemia / hypomagnesimia / hx of eating disorder/ hx of ulcers /hx of polyps plan: on 160 meq daily of potassium - continue. Urine studies have been suggestive on non-renal K wasting. Will try to send sample of mucous/stool ssample to see if high for egd/colo on friday
--- NOTE | 2017-02-22 13:44 | CP.PCM.PN ---
<Saurav Brizuela - Last Filed: 02/22/17 13:47> Subjective - Date & Time of Evaluation Date of Evaluation: 02/22/17 Time of Evaluation: 12:35 - Subjective Subjective: PGY4 GI Fellow Progress Note Patient seen and examined bedside this afternoon. Family is at bedside. The patient has no new complaints at this time. No issues overnight. Hungry, tolerating diet at present. 12 system ROS performed and negative except where stated. Objective - Vital Signs/Intake and Output Vital Signs (last 24 hours): Temp Pulse Resp BP Pulse Ox 97.7 F 101 H 18 103/70 100 02/22/17 12:20 02/22/17 12:20 02/22/17 12:20 02/22/17 12:20 02/22/17 12:20 - Medications Medications: Current Medications Acetaminophen (Tylenol 325mg Tab) 650 mg PO Q6 PRN PRN Reason: Pain, moderate (4-7) Last Admin: 02/20/17 21:01 Dose: 650 mg Bromocriptine Mesylate (Parlodel) 2.5 mg PO DAILY [facility] Last Admin: 02/22/17 09:13 Dose: 2.5 mg Bupropion HCl (Wellbutrin Sr 150 Mg) 150 mg PO DAILY [facility] Last Admin: 02/22/17 09:12 Dose: 150 mg Clonazepam (Klonopin) 1 mg PO BID [facility] Last Admin: 02/22/17 09:12 Dose: 1 mg Lactulose (Enulose) 20 gm PO Q4H [facility] Last Admin: 02/22/17 13:30 Dose: Not Given Levothyroxine Sodium (Synthroid) 50 mcg PO DAILY@0630 [facility] Last Admin: 02/22/17 06:33 Dose: 50 mcg Loratadine (Claritin) 10 mg PO DAILY [facility] Last Admin: 02/22/17 13:30 Dose: Not Given Naproxen (Naproxen) 500 mg PO Q12 [facility] Last Admin: 02/22/17 09:12 Dose: 500 mg Olopatadine HCl (Patanol 0.1% Opht Soln) 1 drop OU BID PRN PRN Reason: Allergy symptoms Ondansetron HCl (Zofran Inj) 4 mg IVP Q6 PRN PRN Reason: Nausea/Vomiting Last Admin: 02/22/17 09:13 Dose: 4 mg Potassium Chloride (K-Dur 20 Meq Er Tab) 40 meq PO ONCE [facility] Last Admin: 02/22/17 13:25 Dose: Not Given Potassium Chloride (K-Dur 20 Meq Er Tab) 40 meq PO TID [facility] Last Admin: 02/22/17 13:30 Dose: Not Given Simethicone (Mylicon Chew Tab) 80 mg PO PCHS PRN PRN Reason: Flatulence Zolpidem Tartrate (Ambien) 5 mg PO HS PRN PRN Reason: Insomnia Last Admin: 02/22/17 01:32 Dose: 5 mg - Labs Labs: 02/15/17 04:00 02/22/17 06:30 - Constitutional Appears: Non-toxic, No Acute Distress - Eye Exam Eye Exam: EOMI, PERRL - ENT Exam ENT Exam: Mucous Membranes Moist - Respiratory Exam Respiratory Exam: Clear to Ausculation Bilateral. absent: Rales, Rhonchi, Wheezes - Cardiovascular Exam Cardiovascular Exam: RRR, +S1, +S2 - GI/Abdominal Exam GI & Abdominal Exam: Soft, Normal Bowel Sounds. absent: Distended, Firm, Guarding, Rigid, Tenderness, Organomegaly - Extremities Exam Extremities Exam: Normal Inspection. absent: Pedal Edema - Neurological Exam Neurological Exam: Alert, Awake, Oriented x3 - Psychiatric Exam Psychiatric exam: Normal Affect, Normal Mood - Skin Skin Exam: Dry, Warm Assessment and Plan - Assessment and Plan (Free Text) Assessment: 41 yr old F admitted with hypokalemia resistant to repletion with no diuretic use or surreptitious use of laxatives, with no diarrhea or vomiting. Unclear etiology. In process of renal work up. Associated with hypomagnesemia. Will hold PPi therapy as hypomagnesemia is a known side effect of PPI therapy. The anti depressants she is on does not cause hypomagnesium. 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 I would try to obtain results of her past endoscopy. She insists she wants inpatient EGD/ colonoscopy as she cannot take more time off from work and cant follow as outpatient. Plan: -Plan for EGD/Colonoscopy pending endoscopy availability on Friday -Clear liquid diet to start tomorrow -Bowel Rx to be given pending BMp tomorrow -Replete electrolytes as indicated -Renal w/u ongoing -Hold PPI -Diet as tolerated today <Rashid Sanchez MD - Last Filed: 02/22/17 21:21> Objective - Vital Signs/Intake and Output Vital Signs (last 24 hours): Temp Pulse Resp BP Pulse Ox 97.5 F L 100 H 18 110/78 99 02/22/17 20:35 02/22/17 20:35 02/22/17 20:35 02/22/17 20:35 02/22/17 20:35 - Medications Medications: Current Medications Acetaminophen (Tylenol 325mg Tab) 650 mg PO Q6 PRN PRN Reason: Pain, moderate (4-7) Last Admin: 02/20/17 21:01 Dose: 650 mg Bromocriptine Mesylate (Parlodel) 2.5 mg PO DAILY [facility] Last Admin: 02/22/17 09:13 Dose: 2.5 mg Bupropion HCl (Wellbutrin Sr 150 Mg) 150 mg PO DAILY [facility] Last Admin: 02/22/17 09:12 Dose: 150 mg Clonazepam (Klonopin) 1 mg PO BID [facility] Last Admin: 02/22/17 17:12 Dose: 1 mg Lactulose (Enulose) 20 gm PO Q4H [facility] Last Admin: 02/22/17 17:13 Dose: 20 gm Levothyroxine Sodium (Synthroid) 50 mcg PO DAILY@0630 [facility] Last Admin: 02/22/17 06:33 Dose: 50 mcg Loratadine (Claritin) 10 mg PO DAILY [facility] Last Admin: 02/22/17 17:16 Dose: 10 mg Naproxen (Naproxen) 500 mg PO Q12 [facility] Last Admin: 02/22/17 09:12 Dose: 500 mg Olopatadine HCl (Patanol 0.1% Opht Soln) 1 drop OU BID PRN PRN Reason: Allergy symptoms Ondansetron HCl (Zofran Inj) 4 mg IVP Q6 PRN PRN Reason: Nausea/Vomiting Last Admin: 02/22/17 09:13 Dose: 4 mg Potassium Chloride (K-Dur 20 Meq Er Tab) 40 meq PO ONCE [facility] Last Admin: 02/22/17 17:12 Dose: 40 meq Potassium Chloride (K-Dur 20 Meq Er Tab) 40 meq PO TID [facility] Last Admin: 02/22/17 17:27 Dose: 40 meq Propranolol HCl (Inderal) 10 mg PO TID [facility] Last Admin: 02/22/17 17:11 Dose: 10 mg Simethicone (Mylicon Chew Tab) 80 mg PO PCHS PRN PRN Reason: Flatulence Zolpidem Tartrate (Ambien) 5 mg PO HS PRN PRN Reason: Insomnia Last Admin: 02/22/17 01:32 Dose: 5 mg - Labs Labs: 02/15/17 04:00 02/22/17 06:30 Attending/Attestation - Attestation I have personally seen and examined this patient.: Yes I have fully participated in the care of the patient.: Yes I have reviewed all pertinent clinical information, including history, physical exam and plan: Yes Notes (Text): 02/22/17 21:20 Patient seen with GI fellow. This is a 41 yr old F admitted with hypokalemia resistant to repletion with no diuretic use, or surreptious use of laxatives, with no diarrhea or vomiting. Unclear etiology. In process of renal work up. Associated with hypomagnesemia. Will hold PPi therapy as hypomagnesemia is a known side effect of PPI therapy. The anti depressants she is on does not cause hypomagnesium. 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 I would try to obtain results of her past endoscopy. Today she insists she wants inpatient EGD/ colonoscopy as she cannot take more time off from work and cant follow as outpatient Plan: - replete electrolytes - tentative EGD/ colonoscopy friday - hold PPI - Diet as tolerated - discussed with team - Ct scan colon has no colon mass lesions
--- NOTE | 2017-02-22 13:44 | PN ---
DATE: 02/22/2017 LOCATION: Room 418. SUBJECTIVE: This is a 41-year-old female with spontaneous hypokalemia with a yet undetermined etiolo gy, whether we are dealing GI, renal versus endocrine related spontaneous potassium loss. So far, he r endocrine workup has been normal as noted. The ACTH and ACTH stimulation test excluded the possibi lity of adrenal-related etiology with a normal response of cortisol level to ACTH stimulation as repo rted. Her basal cortisol was 10.41 with a 1-hour stimulation cortisol level of 20.1 mcg/dL. This __ __ underlying hypoadrenalism or adrenal insufficiency thereof. Her prolactin level done initially wa s 44 with a repeat level yesterday of 8.8 ____ Parlodel. She continues to have persistent amenorrhea as expected with hyperprolactinemia as noted. We will continue the Parlodel given as 2.5 mg once da kush as ordered and we will titrate accordingly to optimize her prolactin level ____. She is undergoi ng GI workup to exclude any underlying GI-related etiology for this ____ and they will have to exclud e any underlying GI enteropathy as noted. We will obtain serial chemistries and supplement according ly as needed. We will follow. Lula Alberts MD cc: [id number] TT: 02/22/2017 13:43:16 Confirmation # [id number] Dictation # [id number]
--- NOTE | 2017-02-22 17:34 | PN ---
DATE: 02/22/2017 SUBJECTIVE: The patient is seen today, 02/22/2017. She continued to feel better regarding her numbness and weakness. PHYSICAL EXAMINATION: VITAL SIGNS: Blood pressure 103/70, temperature 97.7, respiratory rate 18, and pulse 100. HEENT: Pupils equal, reactive to light. Normal-appearing mucosa of the conjunctivae, oropharyngeal, and nasal membrane mucosa. NECK: Supple, no JVD, no carotid bruit, no lymph node, no thyromegaly. CHEST AND LUNGS: Bilateral symmetrical expansion, good air exchange, no rales, no rhonchi. CARDIOVASCULAR: PMI not localized. S1, S2. No additional sounds. ABDOMEN: Normoactive bowel sounds, no tenderness, no organomegaly, no masses. EXTREMITIES: No cyanosis, no clubbing, no edema. CENTRAL NERVOUS SYSTEM: Alert, awake, oriented x 3. No neurological deficits could be appreciated. ASSESSMENT: 1. Persistent hypokalemia with tachycardia and symptoms of anxiety, In addition, patient also complained of PLAN: We will start patient on propranolol 10 mg 3 times a day, and we will monitor potassium closely. Continue potassium supplements. Emery Barton MD cc: [phone] TT: 02/22/2017 17:33:42 Confirmation # [id number] Dictation # [id number] demetria OLGUIN
[2017-02-23] MEDS: Levothyroxine 50 MCG TAB PO SCH (06:29)
[2017-02-23 08:25] LABS: BLOOD UREA NITROGEN 14 mg/dl (7-17); CALCIUM 9.2 mg/dL (8.4-10.2); CARBON DIOXIDE 29 mmol/L (22-30); CHLORIDE 97 mmol/L (98-107); GFR AFRICAN-AMERICAN > 60; GLUCOSE,RANDOM 79 mg/dL (65-105); POTASSIUM 3.5 MMOL/L (3.6-5.0); SODIUM 138 mmol/l (132-148)
[2017-02-23] MEDS: Naproxen 500 MG TAB PO SCH ×2 (09:03→21:41)
[2017-02-23] MEDS: buPROPion SR 150 MG TABLET PO SCH (09:03)
[2017-02-23] MEDS: Potassium Chloride 20 mEq ER Tab PO SCH ×3 (09:05→17:35)
[2017-02-23] MEDS ORDERED: Bisacodyl 5mg EC Tab PO ONE (13:00)
--- NOTE | 2017-02-23 13:08 | CP.PCM.PN ---
<Saurav Brizuela - Last Filed: 02/23/17 13:10> Subjective - Date & Time of Evaluation Date of Evaluation: 02/23/17 Time of Evaluation: 12:45 - Subjective Subjective: PGY4 GI Fellow Progress Note Patient seen and examined bedside this afternoon. She has no complaints at this time and is tolerating liquid diet without issue. Reinforced importance of bowel prep and NPO past midnight, pt understands. 12 system ROS performed and negative except where stated. Objective - Vital Signs/Intake and Output Vital Signs (last 24 hours): Temp Pulse Resp BP Pulse Ox 97.4 F L 83 18 107/72 98 02/23/17 12:13 02/23/17 12:13 02/23/17 12:13 02/23/17 12:13 02/23/17 12:13 - Medications Medications: Current Medications Acetaminophen (Tylenol 325mg Tab) 650 mg PO Q6 PRN PRN Reason: Pain, moderate (4-7) Last Admin: 02/23/17 00:34 Dose: 650 mg Bromocriptine Mesylate (Parlodel) 2.5 mg PO DAILY [facility] Last Admin: 02/23/17 09:05 Dose: 2.5 mg Bupropion HCl (Wellbutrin Sr 150 Mg) 150 mg PO DAILY [facility] Last Admin: 02/23/17 09:03 Dose: 150 mg Clonazepam (Klonopin) 1 mg PO BID [facility] Last Admin: 02/23/17 09:03 Dose: 1 mg Lactulose (Enulose) 20 gm PO Q4H [facility] Last Admin: 02/23/17 09:03 Dose: 20 gm Levothyroxine Sodium (Synthroid) 50 mcg PO DAILY@0630 [facility] Last Admin: 02/23/17 06:29 Dose: 50 mcg Loratadine (Claritin) 10 mg PO DAILY [facility] Last Admin: 02/23/17 09:04 Dose: 10 mg Naproxen (Naproxen) 500 mg PO Q12 [facility] Last Admin: 02/23/17 09:03 Dose: 500 mg Olopatadine HCl (Patanol 0.1% Opht Soln) 1 drop OU BID PRN PRN Reason: Allergy symptoms Ondansetron HCl (Zofran Inj) 4 mg IVP Q6 PRN PRN Reason: Nausea/Vomiting Last Admin: 02/23/17 09:07 Dose: 4 mg Polyethylene Glycol/Electrolytes (Golytely) 4,000 ml PO ONCE ONE Stop: 02/23/17 15:01 Potassium Chloride (K-Dur 20 Meq Er Tab) 40 meq PO ONCE [facility] Last Admin: 02/22/17 17:12 Dose: 40 meq Potassium Chloride (K-Dur 20 Meq Er Tab) 40 meq PO TID [facility] Last Admin: 02/23/17 09:05 Dose: 40 meq Propranolol HCl (Inderal) 10 mg PO TID [facility] Last Admin: 02/23/17 09:04 Dose: 10 mg Simethicone (Mylicon Chew Tab) 80 mg PO HS PRN PRN Reason: Flatulence Zolpidem Tartrate (Ambien) 5 mg PO HS PRN PRN Reason: Insomnia Last Admin: 02/23/17 00:29 Dose: 5 mg - Labs Labs: 02/15/17 04:00 02/23/17 07:45 PT 11.1 SECONDS (9.6-11.2) 02/23/17 08:00 INR 1.07 (0.92-1.08) 02/23/17 08:00 - Constitutional Appears: Non-toxic, No Acute Distress - Eye Exam Eye Exam: EOMI, PERRL - ENT Exam ENT Exam: Mucous Membranes Moist - Respiratory Exam Respiratory Exam: Clear to Ausculation Bilateral. absent: Rales, Rhonchi, Wheezes - Cardiovascular Exam Cardiovascular Exam: RRR, +S1, +S2 - GI/Abdominal Exam GI & Abdominal Exam: Soft, Normal Bowel Sounds. absent: Distended, Firm, Guarding, Rigid, Tenderness, Organomegaly - Extremities Exam Extremities Exam: Normal Inspection. absent: Pedal Edema - Neurological Exam Neurological Exam: Alert, Awake, Oriented x3 - Psychiatric Exam Psychiatric exam: Normal Affect, Normal Mood - Skin Skin Exam: Dry, Warm Assessment and Plan - Assessment and Plan (Free Text) Assessment: 41 yr old F admitted with hypokalemia resistant to repletion with no diuretic use or surreptitious use of laxatives, with no diarrhea or vomiting. Unclear etiology. In process of renal work up. Associated with hypomagnesemia. Will hold PPI therapy as hypomagnesemia is a known side effect of PPI therapy. The anti depressants she is on does not cause hypomagnesemia. 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 I would try to obtain results of her past endoscopy. She insists she wants inpatient EGD/ colonoscopy as she cannot take more time off from work and cant follow as outpatient. Plan: -Plan for EGD/Colonoscopy tomorrow -Dulcolax and Golytle to be given this afternoon -Liquid diet today, NPO past MN -Replete electrolytes as indicated; will need K given bowel prep -Renal w/u ongoing -Continue to hold PPI <Rashid Sanchez MD - Last Filed: 02/23/17 18:39> Objective - Vital Signs/Intake and Output Vital Signs (last 24 hours): Temp Pulse Resp BP Pulse Ox 98.4 F 73 16 99/67 L 99 02/23/17 15:50 02/23/17 15:50 02/23/17 15:50 02/23/17 17:28 02/23/17 15:50 - Medications Medications: Current Medications Acetaminophen (Tylenol 325mg Tab) 650 mg PO Q6 PRN PRN Reason: Pain, moderate (4-7) Last Admin: 02/23/17 00:34 Dose: 650 mg Bromocriptine Mesylate (Parlodel) 2.5 mg PO DAILY [facility] Last Admin: 02/23/17 09:05 Dose: 2.5 mg Bupropion HCl (Wellbutrin Sr 150 Mg) 150 mg PO DAILY [facility] Last Admin: 02/23/17 09:03 Dose: 150 mg Clonazepam (Klonopin) 1 mg PO BID [facility] Last Admin: 02/23/17 17:34 Dose: 1 mg Levothyroxine Sodium (Synthroid) 50 mcg PO DAILY@0630 [facility] Last Admin: 02/23/17 06:29 Dose: 50 mcg Loratadine (Claritin) 10 mg PO DAILY [facility] Last Admin: 02/23/17 09:04 Dose: 10 mg Naproxen (Naproxen) 500 mg PO Q12 [facility] Last Admin: 02/23/17 09:03 Dose: 500 mg Olopatadine HCl (Patanol 0.1% Opht Soln) 1 drop OU BID PRN PRN Reason: Allergy symptoms Ondansetron HCl (Zofran Inj) 4 mg IVP Q6 PRN PRN Reason: Nausea/Vomiting Last Admin: 02/23/17 14:24 Dose: 4 mg Potassium Chloride (K-Dur 20 Meq Er Tab) 40 meq PO ONCE [facility] Last Admin: 02/22/17 17:12 Dose: 40 meq Potassium Chloride (K-Dur 20 Meq Er Tab) 40 meq PO TID [facility] Last Admin: 02/23/17 17:35 Dose: 40 meq Propranolol HCl (Inderal) 10 mg PO TID [facility] Last Admin: 02/23/17 17:28 Dose: Not Given Simethicone (Mylicon Chew Tab) 80 mg PO [facility] PRN PRN Reason: Flatulence Zolpidem Tartrate (Ambien) 5 mg PO HS PRN PRN Reason: Insomnia Last Admin: 02/23/17 00:29 Dose: 5 mg - Labs Labs: 02/15/17 04:00 02/23/17 07:45 PT 11.1 SECONDS (9.6-11.2) 02/23/17 08:00 INR 1.07 (0.92-1.08) 02/23/17 08:00 Attending/Attestation - Attestation I have personally seen and examined this patient.: Yes I have fully participated in the care of the patient.: Yes I have reviewed all pertinent clinical information, including history, physical exam and plan: Yes Notes (Text): 02/23/17 18:37 Patient seen with GI fellow. This is a 41 yr old F admitted with hypokalemia resistant to repletion with no diuretic use, or surreptious use of laxatives, with no diarrhea or vomiting. Unclear etiology. In process of renal work up. Associated with hypomagnesemia. Will hold PPi therapy as hypomagnesemia is a known side effect of PPI therapy. The anti depressants she is on does not cause hypomagnesium. 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 Plan: - replete electrolytes - EGD/ colonoscopy Friday - hold PPI - clear liquid diet - Will have diarrhea from laxatives and bowel prep - Shoud be supplemented along with magnesium as she will be losing electrolytes in diarrhea - Ct scan colon has no colon mass lesions - NPO past midnight
[2017-02-23] MEDS ORDERED: Peg-Electrolyte Oral Soln 4L (Golytely) PO ONE (15:00)
--- NOTE | 2017-02-23 15:29 | PN ---
DATE: 02/23/2017 ROOM: 418 This is a 41-year-old female with lower extremity painful paresthesias related to the spontaneous hyp okalemia as noted thereof. She is undergoing GI workup at this time to determine the possible relati on to a GI enteropathy causing the increased potassium losses through the GI tract causing the aforem entioned spontaneous hypokalemia and associated neuromuscular deficits and complaints as noted thereo f. Her comprehensive hormonal profile has been normal except for one hormone assay that was sent to a [facility] lab, most of the hormone assays have been reported as normal. Her serum cortisol level, whic h was initially very low at 1.9 mg/dL, normalized with the Cortrosyn stimulation test done and undert aken, which was normal as noted thereof. Moreover, her prolactin level is 8.8 with an initial level of 44 and has been started on bromocriptine given as 2.5 mg once daily as ordered. We will titrate i ncrementally as indicated to optimize metabolic control. The cortisol levels, which I was saying, do ne fasting was 10.4 mg/dL and a 1-hour stimulation level was 20.1 mcg/dL, which was actually a normal response of cortisol to ACTH excluding the possibility of adrenal insufficiency. Her latest control chemist ry showed a BUN of 14, sodium 140, potassium 3.2, chloride 96, CO2 31, glucose 76 and creatinine 0.9. Moreover, her prolactin level now is much lower from the initial level of 44 and the repeat level n ow is 8.8. So at this time, we will continue the bromocriptine given as 2.5 mg once daily in the morning as orde red. We will titrate incrementally as indicated to optimize metabolic control. We will obtain seria l prolactin levels and adjust her dose regimen accordingly to optimize metabolic control. We will fo llow. Lula Alberts MD cc: [id number] TT: 02/23/2017 15:28:09 Confirmation # [id number] Dictation # [id number] en
[2017-02-24 06:23] LABS: HEMATOCRIT 33.3 % (34.0-47.0); MEAN CELL VOLUME 94.4 fl (81.0-99.0); MEAN CORPUSCULAR HEMOGLOBIN 31.4 pg (27.0-31.0); MEAN CORPUSCULAR HGB CONC 33.3 g/dL (33.0-37.0); RED CELL DISTRIBUTION WIDTH 12.9 % (11.5-14.5); WHITE BLOOD COUNT 7.5 K/uL (4.8-10.8)
[2017-02-24] MEDS: Levothyroxine 50 MCG TAB PO SCH (06:23)
[2017-02-24 06:25] LABS: ALB/GLOB RATIO 1.3 (1.0-2.1); ALKALINE PHOSPHATASE 61 U/L (38-126); ALT/SGPT 21 U/L (9-52); AST/SGOT 34 U/L (14-36); BILIRUBIN,TOTAL 0.4 mg/dl (0.2-1.3); BLOOD UREA NITROGEN 11 mg/dl (7-17); CALCIUM 8.6 mg/dL (8.4-10.2); CARBON DIOXIDE 29 mmol/L (22-30); CHLORIDE 100 mmol/L (98-107); GFR AFRICAN-AMERICAN > 60; GLUCOSE,RANDOM 82 mg/dL (65-105); POTASSIUM 3.3 MMOL/L (3.6-5.0); SODIUM 141 mmol/l (132-148)
--- NOTE | 2017-02-24 08:10 | PN ---
DATE: 02/21/2017 The patient was seen 02/22/20 PHYSICAL EXAMINATION: VITAL SIGNS: Blood pressure 111/75, temperature 97.6, respiratory rate 20, and pulse 88. HEENT: Pupils equal, reactive to light. Normal-appearing mucosa of the conjunctivae, oropharyngeal and nasal membrane mucosa. NECK: Supple. No JVD. No carotid bruit, no lymph node, no thyromegaly. CHEST AND LUNGS: Bilateral symmetrical expansion, good air exchange, no rales, no rhonchi. CARDIOVASCULAR: PMI not localized. S1, S2. No additional sounds. ABDOMEN: Normoactive bowel sounds, no tenderness, no organomegaly, no masses. EXTREMITIES: No cyanosis, no clubbing, no edema. CENTRAL NERVOUS SYSTEM: Alert, awake, oriented x 3. No neurological deficits could be appreciated. ASSESSMENT: Persistent hypokalemia, rule out gastrointestinal potassium loss. PLAN: The patient will continue supplementing potassium as per narrow fabric calenderer and follow up GI recommendations. Phil Ana Barton MD cc: [phone] TT: 02/22/2017 17:22:52 Confirmation # [id number] Dictation # [id number] demetria OLGUIN
[2017-02-24] MEDS: Potassium Chloride 20 mEq ER Tab PO SCH ×3 (09:00→21:49)
[2017-02-24] MEDS: Naproxen 500 MG TAB PO SCH ×2 (09:00→21:50)
[2017-02-24] MEDS: Potassium CL 10mEq/100ml 100 ML IVPB SCH ×3 (10:07→17:12)
[2017-02-24] MEDS ORDERED: Potassium Chloride 10 mEq ER Tab PO SCH (10:50)
--- NOTE | 2017-02-24 10:54 | CP.PCM.PN ---
Subjective - Date & Time of Evaluation Date of Evaluation: 02/24/17 Time of Evaluation: 10:52 - Subjective Subjective: Patient appeared to be comfortable No new event reported Objective - Vital Signs/Intake and Output Vital Signs (last 24 hours): Temp Pulse Resp BP Pulse Ox 98 F 89 18 101/61 100 02/24/17 08:02 02/24/17 08:02 02/24/17 08:02 02/24/17 08:02 02/24/17 08:02 - Medications Medications: Current Medications Acetaminophen (Tylenol 325mg Tab) 650 mg PO Q6 PRN PRN Reason: Pain, moderate (4-7) Last Admin: 02/23/17 00:34 Dose: 650 mg Bromocriptine Mesylate (Parlodel) 2.5 mg PO DAILY [facility] Last Admin: 02/23/17 09:05 Dose: 2.5 mg Bupropion HCl (Wellbutrin Sr 150 Mg) 150 mg PO DAILY [facility] Last Admin: 02/23/17 09:03 Dose: 150 mg Clonazepam (Klonopin) 1 mg PO BID [facility] Last Admin: 02/23/17 17:34 Dose: 1 mg Potassium Chloride (Potassium Chloride 10 Meq/100 Ml) 100 mls @ 100 mls/hr IVPB Q1 [facility] Stop: 02/24/17 12:59 Last Admin: 02/24/17 10:07 Dose: 100 mls/hr Levothyroxine Sodium (Synthroid) 50 mcg PO DAILY@0630 [facility] Last Admin: 02/24/17 06:23 Dose: 50 mcg Loratadine (Claritin) 10 mg PO DAILY [facility] Last Admin: 02/23/17 09:04 Dose: 10 mg Naproxen (Naproxen) 500 mg PO Q12 [facility] Last Admin: 02/23/17 21:41 Dose: 500 mg Olopatadine HCl (Patanol 0.1% Opht Soln) 1 drop OU BID PRN PRN Reason: Allergy symptoms Ondansetron HCl (Zofran Inj) 4 mg IVP Q6 PRN PRN Reason: Nausea/Vomiting Last Admin: 02/24/17 10:08 Dose: 4 mg Potassium Chloride (K-Dur 20 Meq Er Tab) 40 meq PO TID [facility] Last Admin: 02/23/17 17:35 Dose: 40 meq Potassium Chloride (K-Dur 20 Meq Er Tab) 50 meq PO ONCE [facility] Propranolol HCl (Inderal) 10 mg PO TID [facility] Last Admin: 02/23/17 17:28 Dose: Not Given Simethicone (Mylicon Chew Tab) 80 mg PO [facility] PRN PRN Reason: Flatulence - Labs Labs: 02/24/17 05:50 02/24/17 05:50 PT 11.1 SECONDS (9.6-11.2) 02/23/17 08:00 INR 1.07 (0.92-1.08) 02/23/17 08:00 - Constitutional Appears: No Acute Distress - ENT Exam ENT Exam: Mucous Membranes Moist - Respiratory Exam Respiratory Exam: absent: Chest Wall Tenderness - Extremities Exam Extremities Exam: absent: Calf Tenderness - Back Exam Back Exam: absent: CVA tenderness (L), CVA tenderness (R) - Neurological Exam Neurological Exam: Alert Assessment and Plan (1) Hypokalemia Status: Acute
[2017-02-24 11:53] LABS: METANEPHRINES <25 pg/mL (<=57); TOTAL METANEPHRINES 81 pg/mL (<=205)
[2017-02-24] MEDS ORDERED: Lactated Ringer's 500 ML IV ONE (13:56)
--- NOTE | 2017-02-24 14:06 | PN ---
DATE: 02/24/2017 ROOM: 418 This is a 41-year-old female with recent overt spontaneous hypokalemia, now undergoing GI workup for further evaluation and management for a possible potassium losing enteropathy as noted thereof. Her comprehensive hormonal profile has all been reported as normal as noted. The Cortrosyn ACTH stimulation test which was done was also reported as normal with a baseline cortis ol level of 10.4 and a repeat 1-hour stimulation level of 20.1 mcg/dL, which actually basically exclu ded the possibility of secondary adrenal insufficiency. Her latest chemistry showed a BUN of 14, sod ium 138, potassium 3.5, chloride 97, CO2 29, glucose 79 and creatinine 1.2. The latest prolactin lev el is 8.8 with an initial level of 44. So at this time, we will continue the bromocriptine given as 2.5 mg once daily in the morning as orde red. We will also continue her Synthroid given as 50 mcg once daily as ordered. We will titrate inc rementally as indicated to optimize metabolic control. We will obtain serial chemistries and supplem ent accordingly as needed and we will also repeat the prolactin level and adjust her dose regimen acc ordingly. We will follow. Lula Alberts MD cc: [phone] TT: 02/24/2017 14:06:07 Confirmation # [id number] Dictation # [id number] en
[2017-02-24] MEDS ORDERED: Propofol 10 mg/ml Inj (20 ML) ONE (14:26)
[2017-02-24] MEDS: buPROPion SR 150 MG TABLET PO SCH (15:55)
--- NOTE | 2017-02-25 06:23 | PN ---
DATE: 02/24/2017 SUBJECTIVE: The patient is seen today 02/24/2017. She was going for upper and lower endoscopy PHYSICAL EXAMINATION: VITAL SIGNS: Blood pressure 105/65, temperature 97.8, respiratory rate 20, and pulse is 100. HEENT: Pupils equal, reactive to light. Normal-appearing mucosa of the conjunctivae, oropharyngeal and nasal membrane mucosa. NECK: Supple, no JVD, no carotid bruit, no lymph node. No thyromegaly. CHEST AND LUNGS: Bilateral symmetrical expansion, good air exchange, no rales, no rhonchi. CARDIOVASCULAR: PMI not localized. S1, S2. No additional sounds. ABDOMEN: Normoactive bowel sounds, no tenderness, no organomegaly, no masses. EXTREMITIES: No cyanosis, no clubbing, no edema. CENTRAL NERVOUS SYSTEM: Alert, awake, oriented x3, no neurological deficits could be appreciated. ASSESSMENT: Persistent hypokalemia . The patient is for upper and lower endoscopy. We will follow their recommendations. Continue current potassium supplements. Emery Barton MD cc: [phone] TT: 02/24/2017 21:44:47 Confirmation # [id number] Dictation # [id number] justyna 02/25/2017 05:23:14 CLAU
[2017-02-25 06:33] LABS: ALB/GLOB RATIO 1.2 (1.0-2.1); ALKALINE PHOSPHATASE 73 U/L (38-126); ALT/SGPT 10 U/L (9-52); AST/SGOT 24 U/L (14-36); BILIRUBIN,TOTAL 0.2 mg/dl (0.2-1.3); BLOOD UREA NITROGEN 10 mg/dl (7-17); CALCIUM 8.5 mg/dL (8.4-10.2); CARBON DIOXIDE 30 mmol/L (22-30); CHLORIDE 100 mmol/L (98-107); GFR AFRICAN-AMERICAN > 60; GLUCOSE,RANDOM 85 mg/dL (65-105); POTASSIUM 3.1 MMOL/L (3.6-5.0); SODIUM 140 mmol/l (132-148); TOTAL PROTEIN 5.3 G/DL (6.3-8.2)
[2017-02-25 06:44] LABS: T4 8.75 ug/dl (5.5-11.0)
[2017-02-25] MEDS: Levothyroxine 50 MCG TAB PO SCH (08:52)
--- NOTE | 2017-02-25 09:04 | CP.PCM.PN ---
Subjective - Date & Time of Evaluation Date of Evaluation: 02/25/17 Time of Evaluation: 09:01 - Subjective Subjective: Patient and bed appears to be comfortable Vital signs stable Still complaining of some mucus loss from the rectum. Objective - Vital Signs/Intake and Output Vital Signs (last 24 hours): Temp Pulse Resp BP Pulse Ox 98.1 F 82 20 94/56 L 99 02/25/17 04:42 02/25/17 04:42 02/25/17 04:42 02/25/17 04:42 02/25/17 04:42 - Medications Medications: Current Medications Acetaminophen (Tylenol 325mg Tab) 650 mg PO Q6 PRN PRN Reason: Pain, moderate (4-7) Last Admin: 02/23/17 00:34 Dose: 650 mg Bromocriptine Mesylate (Parlodel) 2.5 mg PO DAILY [facility] Last Admin: 02/24/17 15:58 Dose: 2.5 mg Bupropion HCl (Wellbutrin Sr 150 Mg) 150 mg PO DAILY [facility] Last Admin: 02/24/17 15:55 Dose: 150 mg Clonazepam (Klonopin) 1 mg PO BID [facility] Last Admin: 02/24/17 17:08 Dose: 1 mg Levothyroxine Sodium (Synthroid) 50 mcg PO DAILY@0630 [facility] Last Admin: 02/25/17 08:52 Dose: 50 mcg Loratadine (Claritin) 10 mg PO DAILY [facility] Last Admin: 02/24/17 09:00 Dose: Not Given Naproxen (Naproxen) 500 mg PO Q12 [facility] Last Admin: 02/24/17 21:50 Dose: 500 mg Olopatadine HCl (Patanol 0.1% Opht Soln) 1 drop OU BID PRN PRN Reason: Allergy symptoms Ondansetron HCl (Zofran Inj) 4 mg IVP Q6 PRN PRN Reason: Nausea/Vomiting Last Admin: 02/24/17 10:08 Dose: 4 mg Potassium Chloride (K-Dur 20 Meq Er Tab) 40 meq PO QID [facility] Last Admin: 02/24/17 21:49 Dose: 40 meq Propranolol HCl (Inderal) 10 mg PO TID [facility] Last Admin: 02/24/17 17:08 Dose: 10 mg Simethicone (Mylicon Chew Tab) 80 mg PO HS PRN PRN Reason: Flatulence Zolpidem Tartrate (Ambien) 5 mg PO HS PRN PRN Reason: Sleep Last Admin: 02/25/17 01:54 Dose: 5 mg - Labs Labs: 02/24/17 05:50 02/25/17 05:35 PT 11.1 SECONDS (9.6-11.2) 02/23/17 08:00 INR 1.07 (0.92-1.08) 02/23/17 08:00 - Constitutional Appears: No Acute Distress - ENT Exam ENT Exam: Mucous Membranes Moist - Respiratory Exam Respiratory Exam: absent: Chest Wall Tenderness - Cardiovascular Exam Cardiovascular Exam: REGULAR RHYTHM, RRR. absent: Rubs - GI/Abdominal Exam GI & Abdominal Exam: Normal Bowel Sounds - Extremities Exam Extremities Exam: absent: Calf Tenderness - Back Exam Back Exam: absent: CVA tenderness (L), CVA tenderness (R) - Neurological Exam Neurological Exam: Alert Assessment and Plan (1) Hypokalemia Assessment & Plan: Persistent hypokalemia from none renal loss. Patient had colonoscopy yesterday I do not see the report on the record as of yet. Potassium still 3.1 continue potassium chloride 40 mEq 4 times a day. Check serum magnesium intermittently. Status: Acute
[2017-02-25] MEDS: Potassium Chloride 20 mEq ER Tab PO SCH (09:17)
[2017-02-25] MEDS: Naproxen 500 MG TAB PO SCH (09:18)
[2017-02-25] MEDS: buPROPion SR 150 MG TABLET PO SCH (09:19)
[2017-02-25 12:36] VITALS: BP 107/62; PULSE 87; RESP 18; TEMP 97.5; O2SAT 100
--- NOTE | 2017-02-25 22:30 | DS ---
REASON FOR ADMISSION: This is a 41-year-old female with history of hypothyroidism, was admitted for symptomatic hypokalemia. COURSE OF HOSPITALIZATION: The patient was admitted to medical floor and she had extensive workup by both endocrinology and nephrology. The patient also underwent upper and lower endoscopy looking for any adenoma. The patient was being supplemented both potassium and magnesium while she was in the hospital. The patient's ABG showed that the patient has pH of 7.51 and increased bicarbonate 239. The conclusion was that patient might have Gitelman syndrome due to the metabolic alkalosis with hypokalemia and normal blood pressure. The patient was discharged on both potassium, as well as spironolactone to monitor closely electrolytes and her serum potassium. I discussed with the patient. Dr. Rossi is also in agreement with this plan. FINAL DIAGNOSES: 1. Hypokalemia and hypomagnesemia, likely secondary to Gitelman syndrome. 2. Hypothyroidism. Emery Barton MD cc: [phone] TT: 02/25/2017 22:30:20 pola OLGUIN
== END 2017-02-25 15:05 | disposition home or self-care (01) | DRG 299 ==
LOC: H.ER 15:03 → H.ERHOLD 19:56 → H.TEL 02-13 16:02
PROVIDERS: ADMIT Internal Medicine; ATTEND Internal Medicine
PROC: 0DB38ZX Excision of Lower Esophagus, Via Natural or Artificial Opening Endoscopic, Diagnostic (ICD-10-PCS; 2017-02-24)
PROC: 0DJD8ZZ Inspection of Lower Intestinal Tract, Via Natural or Artificial Opening Endoscopic (ICD-10-PCS; 2017-02-24)
PROC: 0DB98ZX Excision of Duodenum, Via Natural or Artificial Opening Endoscopic, Diagnostic (ICD-10-PCS; principal; 2017-02-24 12:00)
PROC: 0DB78ZX Excision of Stomach, Pylorus, Via Natural or Artificial Opening Endoscopic, Diagnostic (ICD-10-PCS; 2017-02-24 12:00)
DX: E88.81 Metabolic syndrome and other insulin resistance (principal); G72.3 Periodic paralysis; E27.49 Other adrenocortical insufficiency; E87.3 Alkalosis; I95.89 Other hypotension; E83.42 Hypomagnesemia; E03.9 Hypothyroidism, unspecified; K25.9 Gastric ulcer, unspecified as acute or chronic, without hemorrhage or perforation; K44.9 Diaphragmatic hernia without obstruction or gangrene; K64.4 Residual hemorrhoidal skin tags; K64.8 Other hemorrhoids; I10 Essential (primary) hypertension; K21.9 Gastro-esophageal reflux disease without esophagitis; K29.70 Gastritis, unspecified, without bleeding; E78.5 Hyperlipidemia, unspecified; R35.8 Other polyuria; F41.1 Generalized anxiety disorder; F32.9 Major depressive disorder, single episode, unspecified; Z87.11 Personal history of peptic ulcer disease; Z86.010 Personal history of colon polyps

== ENCOUNTER 2017-06-30 02:50 | Emergency (ER) | payer OTHER ==
[2017-06-30 02:51] VITALS: BMI 24.2
[2017-06-30 03:08] VITALS: BP 109/72; PULSE 90; RESP 16; TEMP 98; O2SAT 100
[2017-06-30] MEDS ORDERED: Sodium Chloride 0.9% 1,000 ML IV STA ×2 (03:16→03:17)
[2017-06-30] MEDS ORDERED: Lidocaine 1% w Epi 1:100,000 Inj INFIL ONE (03:17)
--- NOTE | 2017-06-30 03:21 | ED PDOC ---
HPI: Head Injury Time Seen by Provider: 06/30/17 03:19 Chief Complaint (Nursing): Abnormal Skin Integrity Chief Complaint (Provider): head injury History Per: Patient (41 y/o female here for evaluation of head injury that occurred today when she experienced near syncope. Patient admits 1 beer earlier today. Has h/o intermittent dizziness in past secondary to hypokalemia. Denies any current chest pain/abdominal pain/vomiting/fevers/ chills. Last tetanus 12 years ago.) Past Medical History Reviewed: Historical Data, Nursing Documentation, Vital Signs Vital Signs: Last Vital Signs Temp 98 F 06/30/17 03:06 Pulse 90 06/30/17 03:06 Resp 16 06/30/17 03:06 BP 109/72 06/30/17 03:06 Pulse Ox 100 06/30/17 03:06 - Medical History PMH: Anemia, Anxiety, Gastritis, HTN, Hypothyroidism Denies: HIV, Chronic Kidney Disease - Surgical History Surgical History: Hernia Repair (b/l inguinal) - Family History Family History: States: Unknown Family Hx - Home Medications Home Medications: Ambulatory Orders Medication Instructions Recorded Levothyroxine [Synthroid] 50 mcg PO DAILY 02/13/17 Omeprazole 40 mg PO DAILY 02/13/17 Zolpidem [Ambien] 10 mg PO DAILY 02/13/17 clonazePAM [Klonopin] 1 mg PO BID 02/13/17 Bromocriptine [Parlodel] 2.5 mg PO DAILY #30 tab 02/25/17 Potassium Chloride 40 meq PO TID #90 tablet.er 02/25/17 Spironolactone [Aldactone] 50 mg PO DAILY #30 tablet 02/25/17 - Allergies Allergies/Adverse Reactions: Allergies Allergy/AdvReac Type Severity Reaction Status Date / Time No Known Allergies Allergy Verified 12/01/16 06:10 Review of Systems ROS Statement: Except As Marked, All Systems Reviewed And Found Negative Physical Exam - Reviewed Nursing Documentation Reviewed: Yes Vital Signs Reviewed: Yes - Physical Exam Appears: Positive for: Well, Non-toxic, No Acute Distress Head Exam: Positive for: NORMAL INSPECTION, NORMOCEPHALIC. Negative for: ATRAUMATIC (1.0 cm laceration right frontal region of scalp) Skin: Positive for: Normal Color, Warm, DRY Eye Exam: Positive for: EOMI, Normal appearance, PERRL ENT: Positive for: Normal ENT Inspection Neck: Positive for: Normal, Painless ROM Cardiovascular/Chest: Positive for: Regular Rate, Rhythm Respiratory: Positive for: CNT, Normal Breath Sounds Gastrointestinal/Abdominal: Positive for: Normal Exam, Bowel Sounds, Soft Back: Positive for: Normal Inspection Extremity: Positive for: Normal ROM Neurologic/Psych: Positive for: Alert, Oriented - Laboratory Results Result Diagrams: 06/30/17 03:32 06/30/17 03:32 - ECG O2 Sat by Pulse Oximetry: 100 - Progress ED Course And Treament: tdap 0.5ml IM x 1 dose acetaminophen 650mg NS 1 liter wide open upreg neg EKG: NSR 84bpm; no ectopy; nonspecific ST abnormality Patient does not want to be admitted but agreeable to receiving KDUR/KRun currently. States she has to arrange care of son at home and will return to ED subsequently for evaluation of potassium level. d/w risks and benefits of admission with patient. AMA refusal paperwork signed currently. KDUR 60meq Krun x [address]: PENDING Disposition - Clinical Impression Clinical Impression: Hypokalemia, Near syncope, Head injury, Laceration - Patient ED Disposition Is Patient to be Admitted: No - Disposition Disposition: Transfer of Care Disposition Time: 06:00 Condition: FAIR Forms: [employer] (Occ[place]) Patient Signed Over To: Deepti St Handoff Comments: PENDING HEAD CT. PENDING KRUNS X4 Procedure: Wound Repair - Time Performed Time Performed: 03:22 - Time Out Time Out: Site verified - Consent Obtained Consent obtained: Verbal - Performed by Performed by: Mid-level Provider - Indications Indication(s):: Laceration - Location Location:: Right, Face Shape:: Linear Dimensions Length cm: 1.0cm Depth:: Epidermis - Anesthetic Technique Anesthetic Technique: Local Local/Regional Anesthetic:: Lidocaine 1% w/epi - Irrigated Irrigated with ml of normal saline: 150ml - Complexity Complexity:: Simple (one layer) - Wound repair method Sutures:: # (three 6-0 prolene sutures superficial; one 5-0 vicryl subcutaneous)
[2017-06-30 03:44] LABS: BASO % 0.6 % (0.0-2.0); EOS # 0.1 K/uL (0.0-0.7); EOS % 1.2 % (0.0-4.0); HEMOGLOBIN 12.9 g/dL (12.0-16.0); LYMPH % 30.7 % (20.0-40.0); MEAN CORPUSCULAR HEMOGLOBIN 31.4 pg (27.0-31.0); MEAN CORPUSCULAR HGB CONC 35.3 g/dL (33.0-37.0); MEAN PLATELET VOLUME 7.8 fl (7.2-11.7); MONO # 0.8 K/uL (0.0-0.8); MONO % 11.9 % (0.0-10.0); NEUT # 3.6 K/uL (1.8-7.0); NEUT % 55.6 % (50.0-75.0); RBC 4.1 Mil/uL (3.80-5.20); RED CELL DISTRIBUTION WIDTH 12.9 % (11.5-14.5); WHITE BLOOD COUNT 6.5 K/uL (4.8-10.8)
[2017-06-30 03:49] LABS: ALB/GLOB RATIO 1.5 (1.0-2.1); ALBUMIN 3.9 g/dL (3.5-5.0); ALT/SGPT 69 U/L (9-52); AST/SGOT 83 U/L (14-36); BLOOD UREA NITROGEN 7 mg/dl (7-17); CALCIUM 8.7 mg/dL (8.4-10.2); GFR AFRICAN-AMERICAN > 60; GFR NON-AFRICAN AMERICAN > 60; MAGNESIUM 1.4 MG/DL (1.6-2.3)
[2017-06-30] MEDS ORDERED: Lidocaine 1% w Epi 1:100,000 Inj ONE (03:58)
[2017-06-30] MEDS ORDERED: Potassium Chloride 20 mEq ER Tab PO STA ×2 (03:58→04:08)
[2017-06-30] MEDS: Potassium CL 10mEq/100ml 100 ML IVPB SCH ×4 (04:45→07:55)
[2017-06-30] MEDS: Potassium CL 10 MEQ/50 ML 50 ML IVPB SCH ×3 (04:46→06:51)
[2017-06-30] MEDS ORDERED: Potassium CL 10mEq/100ml 100 ML IVPB ONE (04:55)
--- NOTE | 2017-06-30 06:15 | ED PDOC ---
- Laboratory Results Result Diagrams: 06/30/17 03:32 06/30/17 03:32 - ECG O2 Sat by Pulse Oximetry: 100 Medical Decision Making Medical Decision Making: Time: 599 --Patient is signed out to provider by Robby Bean. Pending CT results. Patient stated that she will sign herself out AMA after potassium level recheck. 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 No significant acute abnormality identified. No acute hemorrhage seen within the brain. No acute extra-axial fluid collections visualized. No evidence of significant mass effect within the brain.Normal hatch-white matter differentiation. VENTRICLES: See above. BONES/JOINTS: No acute fractures or other acute bony abnormality noted. SOFT TISSUES: No acute abnormality of the visualized soft tissues is seen. SINUSES: Visualized paranasal sinuses appear clear. MASTOID AIR CELLS: Mastoid air cells appear clear. IMPRESSION: - No evidence of acute intracranial injury or fractures. Time: 699 --Patient signed off to Dr. Rober Ochoa. Pending potassium recheck and re- evaluation. Scribe Attestation: Documented by Lula Marin, acting as a scribe for Deepti St MD. Provider Scribe Attestation: All medical record entries made by the Scribe were at my direction and personally dictated by me. I have reviewed the chart and agree that the record accurately reflects my personal performance of the history, physical exam, medical decision making, and the department course for this patient. I have also personally directed, reviewed, and agree with the discharge instructions and disposition. Disposition - Clinical Impression Clinical Impression: Hypokalemia, Near syncope, Head injury, Laceration - POA Present On Arrival: None - Disposition Disposition: AGAINST MEDICAL ADVICE Disposition Time: :00 Condition: STABLE Forms: [employer] ([place]ian)
--- NOTE | 2017-06-30 06:33 | CT ---
EXAM: CT Head Without Intravenous Contrast CLINICAL HISTORY: 41 years old, female; Injury or trauma; Fall; Additional info: Head injury TECHNIQUE: Axial computed tomography images of the head/brain without intravenous contrast. All CT scans at this facility use one or more dose reduction techniques, viz.: automated exposure control; ma/kV adjustment per patient size (including targeted exams where dose is matched to indication; i.e. head); or iterative reconstruction technique. Coronal and sagittal reformatted images were created and reviewed. EXAM DATE/TIME: 06/30/2017 3:14 AM COMPARISON: No relevant prior studies available. 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 No significant acute abnormality identified. No acute hemorrhage seen within the brain. No acute extra-axial fluid collections visualized. No evidence of significant mass effect within the brain.Normal hatch-white matter differentiation. VENTRICLES: See above. BONES/JOINTS: No acute fractures or other acute bony abnormality noted. SOFT TISSUES: No acute abnormality of the visualized soft tissues is seen. SINUSES: Visualized paranasal sinuses appear clear. MASTOID AIR CELLS: Mastoid air cells appear clear. IMPRESSION: - No evidence of acute intracranial injury or fractures. - See above for remaining findings.
--- NOTE | 2017-06-30 10:14 | CARD ---
APPROVED REPORT EKG Measurement Heart [id number] WI [id number] <Conclusion> Normal sinus rhythm Nonspecific ST and T wave abnormality Abnormal ECG
== END 2017-06-30 10:07 | disposition home or self-care (01) ==
LOC: H.ER 02:50
DX: S01.01XA Laceration without foreign body of scalp, initial encounter (principal); X58.XXXA Exposure to other specified factors, initial encounter; R55 Syncope and collapse; E87.6 Hypokalemia; Z23 Encounter for immunization

== ENCOUNTER 2018-02-18 14:05 | Emergency (ER) | payer OTHER ==
[2018-02-18 14:05] VITALS: BMI 24.2
[2018-02-18 14:16] VITALS: O2SAT 100
[2018-02-18 14:27] VITALS: RESP 18
--- NOTE | 2018-02-18 15:03 | ED PDOC ---
HPI: Female Pain Chief Complaint (Provider): "i was told i have Klebsiella in my urine" History Per: Patient History/Exam Limitations: no limitations Additional Complaint(s): 42 y/o female with history of hypokalemia presents to [facility] ED after being called by lab at [place] due to have a urine culture positive for Klebsiella. Pt was observed at [facility] 2 weeks ago, for CP/SOB and was discharged shortly after no cardiac etiology was suspected. Pt reports she came to [facility] because her PMD told her "to avoid going back to [facility]". She has a history of chest pain, from prior admission which has since practically resolved and is not one of the reasons why she is here. She reports increased dysuria and urinary frequency over the past two weeks. no change in color or smell. Denies vaginal discharge. No change in sexual partners/activity. No nausea/vomiting/diarrhea or fevers. Denies acute changes in SOB/CP. 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[facility]) <Rigoberto Ortega - Last Filed: 02/18/18 18:45> <Christopher Brody - Last Filed: 02/18/18 21:28> Time Seen by Provider: 02/18/18 14:36 Chief Complaint (Nursing): Shortness Of Breath Supervising Attending Note - Supervising Attending Note The Documented history was done by the: Physician Photo Tube Assembler, Attending Physician The documented physical exam was done by the: Physician Photo Tube Assembler, Attending Physician The documented procedures were done by the: Physician Photo Tube Assembler, Attending Physician - Attestation: I have personally seen and examined this patient.: Yes I have fully participated in the care of the patient.: Yes I have reviewed all pertinent clinical information, including history, physical exam and plan: Yes <Christopher Brody - Last Filed: 02/18/18 21:28> Past Medical History Reviewed: Historical Data, Nursing Documentation, Vital Signs Vital Signs: Last Vital Signs Temp 98.0 F 02/18/18 14:09 Pulse 98 H 02/18/18 14:09 Resp 18 02/18/18 14:23 BP 112/88 02/18/18 14:09 Pulse Ox 100 02/18/18 14:09 - Medical History PMH: Anemia, Anxiety, Gastritis, HTN, Hypothyroidism Denies: HIV, Chronic Kidney Disease - Surgical History Surgical History: Hernia Repair (b/l inguinal) - Family History Family History: States: Unknown Family Hx <Rigoberto Ortega - Last Filed: 02/18/18 18:45> Reviewed: Historical Data Vital Signs: Last Vital Signs Temp 97.6 F 02/18/18 19:15 Pulse 88 02/18/18 19:15 Resp 18 02/18/18 14:23 BP 127/75 02/18/18 19:15 Pulse Ox 100 02/18/18 19:15 <Christopher Brody - Last Filed: 02/18/18 21:28> - Home Medications Home Medications: Ambulatory Orders Medication Instructions Recorded Levothyroxine [Synthroid] 50 mcg PO DAILY 02/13/17 Omeprazole 40 mg PO DAILY 02/13/17 Zolpidem [Ambien] 10 mg PO DAILY 02/13/17 clonazePAM [Klonopin] 1 mg PO BID 02/13/17 Bromocriptine [Parlodel] 2.5 mg PO DAILY #30 tab 02/25/17 Potassium Chloride 40 meq PO TID #90 tablet.er 02/25/17 Spironolactone [Aldactone] 50 mg PO DAILY #30 tablet 02/25/17 Ciprofloxacin HCl [Cipro] 500 mg PO BID #20 tablet 02/18/18 - Allergies Allergies/Adverse Reactions: Allergies Allergy/AdvReac Type Severity Reaction Status Date / Time codeine Allergy RASH Verified 02/18/18 14:31 Review of Systems Constitutional: Negative for: Fever, Chills, Sweats, Weakness, Malaise, Weight loss Eyes: Negative for: Vision Change Cardiovascular: Positive for: Chest Pain (chronic, improving over the past two weeks). Negative for: Palpitations, Orthopnea, Paroxysmal Noc. Dyspnea, Edema, Light Headedness Respiratory: Positive for: Shortness of Breath (reports this is episodic and chronic, no symptoms now ). Negative for: Cough, Hemoptysis, SOB with Exertion , Pleuritic Pain, Sputum, Wheezing, Other Gastrointestinal: Negative for: Nausea, Vomiting, Abdominal Pain, Diarrhea, Melena, Hematochezia, Hematemesis Genitourinary Female: Positive for: Dysuria, Frequency. Negative for: Incontinence, Hematuria, Vaginal Discharge, Vaginal Bleeding, Pelvic Pain, Rash Skin: Negative for: Rash Neurological: Negative for: Weakness, Numbness, Incoordination, Change in Speech , Seizures, Altered Mental Status, Headache, Dizziness Psych: Negative for: Anxiety, Depression, Suicidal ideation <Rigoberto Ortega - Last Filed: 02/18/18 18:45> ROS Statement: Except As Marked, All Systems Reviewed And Found Negative <Christopher Brody - Last Filed: 02/18/18 21:28> Physical Exam - Reviewed Nursing Documentation Reviewed: Yes Vital Signs Reviewed: Yes - Physical Exam Appears: Positive for: Non-toxic, No Acute Distress Head Exam: Positive for: ATRAUMATIC, NORMAL INSPECTION, NORMOCEPHALIC <Rigoberto Ortega - Last Filed: 02/18/18 18:45> - Reviewed Nursing Documentation Reviewed: Yes - Physical Exam Skin: Positive for: Warm, Dry Eye Exam: Positive for: EOMI Neck: Positive for: Painless ROM, Supple Cardiovascular/Chest: Positive for: Regular Rate, Rhythm Respiratory: Positive for: Normal Breath Sounds. Negative for: Respiratory Distress Gastrointestinal/Abdominal: Positive for: Soft. Negative for: Tenderness Extremity: Positive for: Normal ROM Neurologic/Psych: Positive for: Alert, Oriented <Christopher Brody - Last Filed: 02/18/18 21:28> - Laboratory Results Result Diagrams: 02/18/18 15:10 02/18/18 15:10 - ECG O2 Sat by Pulse Oximetry: 100 - Progress ED Course And Treament: CBC CMP UA Urine C&S CMP showed hypokalemia of 2.8 UA was clear, no signs of infection Urine culture pending no EKG changes replenished with 20meQ IV KCL 40meq PO KCL pt reported feeling much better after infusion Re-evaluation Time: 18:47 Condition: Re-examined, Improved <Rigoberto Ortega - Last Filed: 02/18/18 18:45> - Laboratory Results Result Diagrams: 02/18/18 15:10 02/18/18 15:10 <Christopher Brody - Last Filed: 02/18/18 21:28> Disposition - Patient ED Disposition Is Patient to be Admitted: No - Disposition Disposition: Routine/Home Disposition Time: 18:49 <Rigoberto Ortega - Last Filed: 02/18/18 18:45> Doctor Will See Patient In The: Office Counseled Patient/Family Regarding: Studies Performed, Diagnosis <CamilleChristopher davalos Court - Last Filed: 02/18/18 21:28> - Clinical Impression Clinical Impression: Dysuria, Hypokalemia - Disposition Referrals: formerly [facility] [Outside] Condition: GOOD Additional Instructions: follow up with your primary medical doctor in 2-3 days continue taking your medications as prescribed if symptoms return or you develop back pain, nausea, vomiting and fever return to ED if urine culture returns abnormal you will be contacted Prescriptions: Ciprofloxacin HCl [Cipro] 500 mg PO BID #20 tablet Instructions: Hypokalemia, Dysuria, Adult (DC)
[2018-02-18 15:16] LABS: SQUAMOUS EPITHIAL < 1 /hpf (0-5); URINE BACTERIA RARE (<OCC); URINE BILIRUBIN NEGATIVE (NEGATIVE); URINE BLOOD NEGATIVE (NEGATIVE); URINE CLARITY CLEAR (Clear); URINE COLOR COLORLESS (YELLOW); URINE GLUCOSE (UA) NEG (Normal); URINE LEUKOCYTE ESTERASE NEG Leu/uL (Negative); URINE PROTEIN NEGATIVE (NEGATIVE); URINE UROBILINOGEN 0.2-1.0 mg/dL (0.2-1.0)
[2018-02-18 15:29] LABS: BLOOD UREA NITROGEN 9 mg/dl (7-17); CALCIUM 9.2 mg/dL (8.4-10.2); GFR AFRICAN-AMERICAN > 60; GFR NON-AFRICAN AMERICAN > 60
[2018-02-18 15:35] LABS: HEMOGLOBIN 13.3 g/dL (12.0-16.0); MEAN CELL VOLUME 90.2 fl (81.0-99.0); MEAN CORPUSCULAR HEMOGLOBIN 31.5 pg (27.0-31.0); MEAN CORPUSCULAR HGB CONC 34.9 g/dL (33.0-37.0); RBC 4.22 Mil/uL (3.80-5.20); RED CELL DISTRIBUTION WIDTH 13.1 % (11.5-14.5); WHITE BLOOD COUNT 11.8 K/uL (4.8-10.8)
[2018-02-18] MEDS ORDERED: Potassium Chloride 20 mEq 100 ML IVPB ONE (16:04)
[2018-02-18] MEDS ORDERED: Potassium Chloride 20 mEq 100 ML ONE (16:12)
[2018-02-18] MEDS ORDERED: Potassium Chloride 20 mEq ER Tab PO ONE (16:13)
[2018-02-18] MEDS ORDERED: Potassium Chloride 10 mEq ER Tab PO ONE (16:16)
[2018-02-18] MEDS ORDERED: Potassium Chloride 20 mEq/15 ml LIQ UD PO ONE (16:30)
[2018-02-18 19:25] VITALS: BP 127/75; PULSE 88; TEMP 97.6
== END 2018-02-18 19:29 | disposition home or self-care (01) ==
LOC: H.ER 14:05
DX: R30.0 Dysuria (principal); E87.6 Hypokalemia; I10 Essential (primary) hypertension; E03.9 Hypothyroidism, unspecified
CPT/HCPCS: 80048; 81003; 81025; 83735; 85027; 87086; 96365; 96366; 99284; J3480

== ENCOUNTER 2018-09-10 19:34 | Inpatient (IN) | payer OTHER ==
[2018-09-10 19:34] VITALS: BMI 24.2
[2018-09-10 20:51] LABS: BASO # 0.1 K/uL (0.0-0.2); BASO % 0.7 % (0.0-2.0); EOS % 0.3 % (0.0-4.0); HEMOGLOBIN 13.4 g/dL (12.0-16.0); LYMPH # 2.3 K/uL (1.0-4.3); LYMPH % 26.4 % (20.0-40.0); MEAN CELL VOLUME 91.2 fl (81.0-99.0); MEAN CORPUSCULAR HEMOGLOBIN 30.9 pg (27.0-31.0); MEAN CORPUSCULAR HGB CONC 33.9 g/dL (33.0-37.0); MEAN PLATELET VOLUME 7.9 fl (7.2-11.7); MONO # 0.6 K/uL (0.0-0.8); MONO % 6.5 % (0.0-10.0); NEUT # 5.8 K/uL (1.8-7.0); NEUT % 66.1 % (50.0-75.0); RBC 4.35 Mil/uL (3.80-5.20); RED CELL DISTRIBUTION WIDTH 13.6 % (11.5-14.5); WHITE BLOOD COUNT 8.8 K/uL (4.8-10.8)
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
[2018-09-10 21:22] LABS: ALB/GLOB RATIO 1.4 (1.0-2.1); ALBUMIN 4.7 g/dL (3.5-5.0); ALT/SGPT 26 U/L (9-52); AST/SGOT 29 U/L (14-36); BLOOD UREA NITROGEN 6 mg/dl (7-17); CALCIUM 9.2 mg/dL (8.4-10.2); GFR NON-AFRICAN AMERICAN > 60
[2018-09-10] MEDS ORDERED: Potassium Chloride 20 mEq ER Tab PO STA (21:25)
[2018-09-10] MEDS ORDERED: Potassium CL 10mEq/100ml 100 ML IVPB STA ×2 (21:26→21:41)
[2018-09-10] MEDS ORDERED: Potassium CL 10 MEQ/50 ML 100 ML ONE (21:28)
[2018-09-10] MEDS ORDERED: diaZEpam 10 mg/2 ml Inj IVP STA (21:28)
[2018-09-11 05:33] LABS: HEMOGLOBIN 11.4 g/dL (12.0-16.0); MEAN CELL VOLUME 91.7 fl (81.0-99.0); MEAN CORPUSCULAR HGB CONC 34.9 g/dL (33.0-37.0); RBC 3.57 Mil/uL (3.80-5.20); RED CELL DISTRIBUTION WIDTH 13.3 % (11.5-14.5); WHITE BLOOD COUNT 7.5 K/uL (4.8-10.8)
[2018-09-11 05:51] LABS: LDL CHOLESTEROL 90 mg/dL (0-129)
[2018-09-11 05:55] LABS: T4 7.81 ug/dl (5.5-11.0)
[2018-09-11 06:09] LABS: ALB/GLOB RATIO 1.3 (1.0-2.1); ALBUMIN 3.4 g/dL (3.5-5.0); ALT/SGPT 21 U/L (9-52); AST/SGOT 22 U/L (14-36); BLOOD UREA NITROGEN 8 mg/dl (7-17); CALCIUM 8.3 mg/dL (8.4-10.2); GFR NON-AFRICAN AMERICAN > 60; HDL CHOLESTEROL 82 MG/DL (30-70)
[2018-09-11] MEDS: Levothyroxine 50 MCG TAB PO SCH (06:34)
[2018-09-11] MEDS ORDERED: Potassium Chloride 20 mEq/15 ml LIQ UD PO SCH (09:00)
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
--- NOTE | 2018-09-11 11:18 | CARD ---
APPROVED REPORT Date of service: 09/10/2018 EKG Measurement Heart [id number] <Conclusion> Normal sinus rhythm Normal ECG
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
[2018-09-11] MEDS: Potassium Chloride 20 mEq/15 ml LIQ UD PO SCH ×3 (14:32→21:45)
[2018-09-11] MEDS: Magnesium Oxide 400 mg Tab UD PO SCH ×2 (14:32→16:31)
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
[2018-09-11 20:57] LABS: SQUAMOUS EPITHIAL 1 /hpf (0-5); URINE BACTERIA RARE (<OCC); URINE BILIRUBIN NEGATIVE (NEGATIVE); URINE BLOOD NEGATIVE (NEGATIVE); URINE CLARITY CLEAR (Clear); URINE COLOR YELLOW (YELLOW); URINE GLUCOSE (UA) NEG (Normal); URINE LEUKOCYTE ESTERASE NEG Leu/uL (Negative); URINE PROTEIN NEGATIVE (NEGATIVE); URINE UROBILINOGEN 0.2-1.0 mg/dL (0.2-1.0)
[2018-09-11 21:20] LABS: CREATININE, RANDOM URINE 55.7 mg/dL
[2018-09-12] MEDS: Levothyroxine 50 MCG TAB PO SCH (05:33)
[2018-09-12] MEDS: Potassium Chloride 20 mEq/15 ml LIQ UD PO SCH ×4 (09:23→21:34)
[2018-09-12] MEDS: Magnesium Oxide 400 mg Tab UD PO SCH ×3 (09:24→18:00)
--- NOTE | 2018-09-12 12:51 | CP.PCM.PN ---
Subjective - Date & Time of Evaluation Date of Evaluation: 09/12/18 Time of Evaluation: 12:55 - Subjective Subjective: C/o constipation. No c/o arm or leg cramps Objective - Vital Signs/Intake and Output Vital Signs (last 24 hours): Temp Pulse Resp BP Pulse Ox 98.6 F 87 18 114/78 100 09/12/18 08:00 09/12/18 08:00 09/12/18 08:00 09/12/18 08:00 09/12/18 08:00 - Medications Medications: Current Medications Clonazepam (Klonopin) 1 mg PO BID [facility] Last Admin: 09/12/18 09:22 Dose: 1 mg Enalapril Maleate (Vasotec) 10 mg PO DAILY [facility] Last Admin: 09/12/18 09:24 Dose: 10 mg Ketorolac Tromethamine (Toradol) 15 mg IVP Q6 PRN PRN Reason: Pain, moderate (4-7) Last Admin: 09/11/18 21:52 Dose: 15 mg Levothyroxine Sodium (Synthroid) 50 mcg PO DAILY@0630 [facility] Last Admin: 09/12/18 05:33 Dose: 50 mcg Magnesium Oxide (Mag-Ox) 400 mg PO BID [facility] Last Admin: 09/12/18 09:24 Dose: 400 mg Meclizine HCl (Antivert) 25 mg PO DAILY PRN PRN Reason: Dizziness Ondansetron HCl (Zofran Inj) 4 mg IVP Q4 PRN PRN Reason: Nausea/Vomiting Last Admin: 09/12/18 09:32 Dose: 4 mg Potassium Chloride (Potassium Chloride Oral Soln) 10 meq PO QID [facility] Last Admin: 09/12/18 09:23 Dose: 10 meq Spironolactone (Aldactone) 50 mg PO DAILY [facility] Last Admin: 09/12/18 09:24 Dose: 50 mg Zolpidem Tartrate (Ambien) 10 mg PO HS [facility] Last Admin: 09/11/18 21:48 Dose: 10 mg - Labs Labs: 09/11/18 04:25 09/11/18 04:25 - Constitutional Appears: No Acute Distress - Head Exam Head Exam: ATRAUMATIC, NORMOCEPHALIC - Eye Exam Additional comments: No icterus - ENT Exam ENT Exam: Mucous Membranes Moist - Neck Exam Neck Exam: Normal Inspection - Respiratory Exam Respiratory Exam: NORMAL BREATHING PATTERN Additional comments: Lungs clear - Cardiovascular Exam Cardiovascular Exam: REGULAR RHYTHM - GI/Abdominal Exam Additional comments: Abdomen is soft & nontender - Extremities Exam Additional comments: No ECC Assessment and Plan - Assessment and Plan (Free Text) Assessment: Electrolyte imbalance Todays labs are pending K+, Mg & Phos are being supplemented Plan: Continue current Mx. Continue to hold Omeprazole Labs ordered to f/u on electrolytes.
[2018-09-12 16:27] LABS: CALCIUM 9.5 mg/dL (8.4-10.2)
--- NOTE | 2018-09-12 17:29 | CP.PCM.PN ---
Subjective - Subjective Subjective: nausea,not eatinf since yesterday evening, no BM for 4 days, abdominal pain upper quadrants Objective - Vital Signs/Intake and Output Vital Signs (last 24 hours): Temp Pulse Resp BP Pulse Ox 97.6 F 76 16 90/55 L 100 09/12/18 15:53 09/12/18 15:53 09/12/18 15:53 09/12/18 15:53 09/12/18 15:53 - Medications Medications: Current Medications Clonazepam (Klonopin) 1 mg PO BID [facility] Last Admin: 09/12/18 09:22 Dose: 1 mg Enalapril Maleate (Vasotec) 10 mg PO DAILY [facility] Last Admin: 09/12/18 09:24 Dose: 10 mg Ketorolac Tromethamine (Toradol) 15 mg IVP Q6 PRN PRN Reason: Pain, moderate (4-7) Last Admin: 09/12/18 14:22 Dose: 15 mg Levothyroxine Sodium (Synthroid) 50 mcg PO DAILY@0630 [facility] Last Admin: 09/12/18 05:33 Dose: 50 mcg Magnesium Oxide (Mag-Ox) 400 mg PO BID [facility] Last Admin: 09/12/18 09:24 Dose: 400 mg Meclizine HCl (Antivert) 25 mg PO DAILY PRN PRN Reason: Dizziness Ondansetron HCl (Zofran Inj) 4 mg IVP Q4 PRN PRN Reason: Nausea/Vomiting Last Admin: 09/12/18 09:32 Dose: 4 mg Potassium Chloride (Potassium Chloride Oral Soln) 10 meq PO QID [facility] Last Admin: 09/12/18 14:20 Dose: 10 meq Spironolactone (Aldactone) 50 mg PO DAILY [facility] Last Admin: 09/12/18 09:24 Dose: 50 mg Zolpidem Tartrate (Ambien) 10 mg PO HS [facility] Last Admin: 09/11/18 21:48 Dose: 10 mg - Labs Labs: 09/11/18 04:25 09/12/18 15:45 - Constitutional Appears: No Acute Distress - Head Exam Head Exam: NORMAL INSPECTION - Eye Exam Eye Exam: PERRL - ENT Exam ENT Exam: Normal Exam - Neck Exam Neck Exam: Normal Inspection - Respiratory Exam Respiratory Exam: Clear to Ausculation Bilateral - Cardiovascular Exam Cardiovascular Exam: REGULAR RHYTHM - GI/Abdominal Exam GI & Abdominal Exam: Distended, Soft, Tenderness (mild upper quadrants), Normal Bowel Sounds. absent: Guarding, Rebound - Extremities Exam Additional comments: R hand tenderness - Back Exam Back Exam: tenderness - Neurological Exam Neurological Exam: Alert, CN II-XII Intact. absent: Motor Sensory Deficit - Psychiatric Exam Psychiatric exam: Anxious - Skin Skin Exam: Warm Assessment and Plan (1) Hypokalemia Status: Acute (2) Hypophosphatemia Status: Acute (3) Hypomagnesemia Status: Acute (4) Pain of right thumb Status: Acute (5) Low back pain Status: Acute (6) Anxiety Status: Chronic (7) Hypothyroidism Status: Chronic (8) HTN (hypertension) Status: Chronic - Assessment and Plan (Free Text) Plan: NPO, run of K x4 , f/u IVF + K, Spirolacone, Max Oxide and rest of treatment, Lactulose
[2018-09-12] MEDS: Potassium CL 10mEq/100ml 100 ML IVPB SCH ×3 (18:28→21:18)
[2018-09-12] MEDS ORDERED: Sodium Chloride 0.9% 1,000 ML IV SCH ×2 (18:45→23:45)
--- NOTE | 2018-09-12 19:09 | PCM.RRT ---
TOBY MAKER Nurse Assessment - Situation TOBY MAKER Reason for Call: Hypotension TOBY MAKER Called By: RN - Respiratory Oxygen Delivery Method: Room Air - Neurological Status (Select all that apply): Alert, Responsive, Oriented - Constitutional Appears: Non-toxic - Head Head Exam: ATRAUMATIC - Eyes Eye Exam: Normal appearance - Respiratory Exam Respiratory Exam: NORMAL BREATHING PATTERN - GI/Abdominal Exam Additional comments: patient complaints of abdominal pain, has not had BM since - Neurological Exam Neurological Exam: Alert, Awake, Oriented x3 - Extremities Exam Extremities Exam: absent: Pedal Edema Plan - Assessment of Findings&Treatment Plan TOBY MAKER Initial BP: 69/40 TOBY MAKER called by nurse for 42-year-old woman for hypotension (69/40). Patient has PMH of hypertension, anemia, hypothyroid, and hypokalemia. Patient was alert and oriented but complained of nausea. Chart, meds, and labs reviewed, BP recent trends 90s-100s/60s, potassium today 2.6. Today patient received 10 mEq K PO QID, Enalapril 10 and Aldactone 50. Hypotension likely due to medications. 1L bolus + 40mEq K given. Continue with bolus and IV potassium. Reassess by primary (Dr Daniel) and nephrology, follow-up labs ordered routine. TOBY MAKER End BP: 86/53 TOBY MAKER Team: Dr Ratliff, Dr Menjivar, Dr Melton
[2018-09-12] MEDS: Potassium Chl 40 mEq in D5-1/2 1,000 ML IV SCH (22:11)
[2018-09-13] MEDS: Potassium CL 10mEq/100ml 100 ML IVPB SCH ×2 (02:01→03:00)
[2018-09-13] MEDS: Levothyroxine 50 MCG TAB PO SCH (06:10)
[2018-09-13] MEDS: Potassium Chl 40 mEq in D5-1/2 1,000 ML IV SCH (07:11)
[2018-09-13 07:52] LABS: MEAN CELL VOLUME 92.3 fl (81.0-99.0); MEAN CORPUSCULAR HEMOGLOBIN 31.5 pg (27.0-31.0); MEAN CORPUSCULAR HGB CONC 34.1 g/dL (33.0-37.0); RBC 3.51 Mil/uL (3.80-5.20); RED CELL DISTRIBUTION WIDTH 13.7 % (11.5-14.5); WHITE BLOOD COUNT 6.7 K/uL (4.8-10.8)
[2018-09-13 08:44] LABS: ALB/GLOB RATIO 1.2 (1.0-2.1); ALT/SGPT 19 U/L (9-52); AST/SGOT 32 U/L (14-36); BLOOD UREA NITROGEN 8 mg/dl (7-17); CALCIUM 7.8 mg/dL (8.4-10.2); GFR NON-AFRICAN AMERICAN > 60
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
[2018-09-13] MEDS: Magnesium Oxide 400 mg Tab UD PO SCH ×2 (08:52→17:21)
[2018-09-13] MEDS: Potassium Chloride 20 mEq/15 ml LIQ UD PO SCH ×4 (08:56→21:08)
--- NOTE | 2018-09-13 09:24 | CP.PCM.PN ---
Subjective - Date & Time of Evaluation Date of Evaluation: 09/13/18 Time of Evaluation: 09:10 - Subjective Subjective: Still c/o no MB. Was given lactulose Objective - Vital Signs/Intake and Output Vital Signs (last 24 hours): Temp Pulse Resp BP Pulse Ox 98.4 F 85 18 93/53 L 100 09/13/18 08:00 09/13/18 08:00 09/13/18 08:00 09/13/18 08:00 09/13/18 08:00 - Medications Medications: Current Medications Clonazepam (Klonopin) 1 mg PO BID [facility] Last Admin: 09/12/18 18:01 Dose: Not Given Enalapril Maleate (Vasotec) 10 mg PO DAILY [facility] Last Admin: 09/12/18 09:24 Dose: 10 mg Dextrose/Sodium Chloride (Dextrose 5%-0.45% Ns 500 Ml) 500 mls @ 80 mls/hr IV .Q6H15M [facility] Stop: 09/13/18 17:40 Last Admin: 09/13/18 08:22 Dose: Not Given Potassium Chloride/Dextrose/Sod Cl (Potassium Chl 40 Meq In D5-1/2ns) 1,000 mls @ 80 mls/hr IV .[id number] [facility] Stop: 09/13/18 18:13 Last Admin: 09/13/18 07:11 Dose: 80 mls/hr Ketorolac Tromethamine (Toradol) 15 mg IVP Q6 PRN PRN Reason: Pain, moderate (4-7) Last Admin: 09/13/18 06:09 Dose: 15 mg Lactulose (Enulose) 20 gm PO DAILY [facility] Stop: 09/13/18 10:01 Levothyroxine Sodium (Synthroid) 50 mcg PO DAILY@0630 [facility] Last Admin: 09/13/18 06:10 Dose: 50 mcg Magnesium Oxide (Mag-Ox) 400 mg PO BID [facility] Last Admin: 09/13/18 08:52 Dose: 400 mg Meclizine HCl (Antivert) 25 mg PO DAILY PRN PRN Reason: Dizziness Ondansetron HCl (Zofran Inj) 4 mg IVP Q4 PRN PRN Reason: Nausea/Vomiting Last Admin: 09/12/18 17:58 Dose: 4 mg Potassium Chloride (Potassium Chloride Oral Soln) 10 meq PO QID [facility] Last Admin: 09/13/18 08:56 Dose: 10 meq Spironolactone (Aldactone) 50 mg PO DAILY [facility] Last Admin: 09/12/18 09:24 Dose: 50 mg Zolpidem Tartrate (Ambien) 10 mg PO HS [facility] Last Admin: 09/12/18 21:33 Dose: 10 mg - Labs Labs: 09/13/18 06:00 09/13/18 06:00 - Constitutional Appears: No Acute Distress - Neck Exam Neck Exam: Full ROM - Respiratory Exam Respiratory Exam: NORMAL BREATHING PATTERN Additional comments: Lungs clear - Cardiovascular Exam Cardiovascular Exam: REGULAR RHYTHM - GI/Abdominal Exam GI & Abdominal Exam: Soft Additional comments: Nontender - Extremities Exam Additional comments: NoECC Assessment and Plan - Assessment and Plan (Free Text) Assessment: Hypokalemia. Was given extra K+ yesterday Hypomanesemia & hypokalemia Results not available Plan: Monitor electrolytes Extra doses of K+ as needed
--- NOTE | 2018-09-13 09:50 | RAD ---
Date of service: 09/12/2018 HISTORY: abd pain/nausea COMPARISON: CT scan of the abdomen pelvis dated 02/13/2017 FINDINGS: BOWEL: Normal. No obstruction. No free air. BONES: Normal. OTHER FINDINGS: None. IMPRESSION: No active disease.
--- NOTE | 2018-09-13 16:04 | CP.PCM.PN ---
Subjective - Date & Time of Evaluation Date of Evaluation: 09/13/18 - Subjective Subjective: F/U Hypokalemia Pt c/o of constipation Objective - Vital Signs/Intake and Output Vital Signs (last 24 hours): Temp Pulse Resp BP Pulse Ox 98.4 F 85 18 93/53 L 100 09/13/18 08:00 09/13/18 09:00 09/13/18 08:00 09/13/18 08:00 09/13/18 08:00 - Medications Medications: Current Medications Clonazepam (Klonopin) 1 mg PO BID [facility] Last Admin: 09/12/18 18:01 Dose: Not Given Enalapril Maleate (Vasotec) 10 mg PO DAILY [facility] Last Admin: 09/12/18 09:24 Dose: 10 mg Dextrose/Sodium Chloride (Dextrose 5%-0.45% Ns 500 Ml) 500 mls @ 80 mls/hr IV .Q6H15M [facility] Stop: 09/13/18 17:40 Last Admin: 09/13/18 08:22 Dose: Not Given Potassium Chloride/Dextrose/Sod Cl (Potassium Chl 40 Meq In D5-1/2ns) 1,000 mls @ 80 mls/hr IV .[id number] [facility] Stop: 09/13/18 18:13 Last Admin: 09/13/18 07:11 Dose: 80 mls/hr Ketorolac Tromethamine (Toradol) 15 mg IVP Q6 PRN PRN Reason: Pain, moderate (4-7) Last Admin: 09/13/18 06:09 Dose: 15 mg Levothyroxine Sodium (Synthroid) 50 mcg PO DAILY@0630 [facility] Last Admin: 09/13/18 06:10 Dose: 50 mcg Magnesium Oxide (Mag-Ox) 400 mg PO BID [facility] Last Admin: 09/13/18 08:52 Dose: 400 mg Meclizine HCl (Antivert) 25 mg PO DAILY PRN PRN Reason: Dizziness Ondansetron HCl (Zofran Inj) 4 mg IVP Q4 PRN PRN Reason: Nausea/Vomiting Last Admin: 09/13/18 10:05 Dose: 4 mg Potassium Chloride (Potassium Chloride Oral Soln) 20 meq PO QID [facility] Last Admin: 09/13/18 13:15 Dose: 20 meq Spironolactone (Aldactone) 50 mg PO DAILY [facility] Last Admin: 09/12/18 09:24 Dose: 50 mg Zolpidem Tartrate (Ambien) 10 mg PO HS [facility] Last Admin: 09/12/18 21:33 Dose: 10 mg - Labs Labs: 09/13/18 06:00 09/13/18 06:00 - Constitutional Appears: No Acute Distress - Head Exam Head Exam: NORMAL INSPECTION - Eye Exam Eye Exam: PERRL - ENT Exam ENT Exam: Normal Exam - Neck Exam Neck Exam: Normal Inspection - Respiratory Exam Respiratory Exam: Clear to Ausculation Bilateral - Cardiovascular Exam Cardiovascular Exam: REGULAR RHYTHM - GI/Abdominal Exam GI & Abdominal Exam: Distended, Soft, Tenderness (mild upper quadrants). absent: Guarding, Rebound - Extremities Exam Extremities Exam: Tenderness (R hand) - Back Exam Back Exam: tenderness - Neurological Exam Neurological Exam: Alert, CN II-XII Intact. absent: Motor Sensory Deficit - Psychiatric Exam Psychiatric exam: Anxious - Skin Skin Exam: Warm Assessment and Plan (1) Hypokalemia Status: Acute (2) Hypophosphatemia Status: Acute (3) Hypomagnesemia Status: Acute (4) Pain of right thumb Status: Acute (5) Low back pain Status: Acute (6) Anxiety Status: Chronic (7) Hypothyroidism Status: Chronic (8) HTN (hypertension) Status: Chronic - Assessment and Plan (Free Text) Plan: Continue Potassium, rest of tx, f/u SMA 7 in AM
[2018-09-14 05:29] LABS: HEMOGLOBIN 11.1 g/dL (12.0-16.0); MEAN CELL VOLUME 92.3 fl (81.0-99.0); MEAN CORPUSCULAR HGB CONC 34.7 g/dL (33.0-37.0); RBC 3.47 Mil/uL (3.80-5.20); RED CELL DISTRIBUTION WIDTH 13.6 % (11.5-14.5); WHITE BLOOD COUNT 6.1 K/uL (4.8-10.8)
[2018-09-14] MEDS: Levothyroxine 50 MCG TAB PO SCH (05:51)
[2018-09-14 06:09] LABS: BLOOD UREA NITROGEN 8 mg/dl (7-17); CALCIUM 7.9 mg/dL (8.4-10.2); GFR NON-AFRICAN AMERICAN > 60
[2018-09-14] MEDS: Potassium Chloride 20 mEq/15 ml LIQ UD PO SCH ×4 (09:38→21:00)
[2018-09-14] MEDS: Magnesium Oxide 400 mg Tab UD PO SCH ×2 (09:39→17:44)
--- NOTE | 2018-09-14 14:05 | CP.PCM.PN ---
Subjective - Date & Time of Evaluation Date of Evaluation: 09/14/18 Time of Evaluation: 02:00 - Subjective Subjective: Feels better but today has headache No cramps in hands Objective - Vital Signs/Intake and Output Vital Signs (last 24 hours): Temp Pulse Resp BP Pulse Ox 97.6 F 81 18 108/79 99 09/14/18 12:18 09/14/18 12:18 09/14/18 12:18 09/14/18 12:18 09/14/18 12:18 Intake and Output: 09/14/18 09/14/18 06:59 18:59 Intake Total 200 Balance 200 - Medications Medications: Current Medications Clonazepam (Klonopin) 1 mg PO Q12 [facility] Last Admin: 09/14/18 09:41 Dose: 1 mg Enalapril Maleate (Vasotec) 10 mg PO DAILY [facility] Last Admin: 09/12/18 09:24 Dose: 10 mg Ketorolac Tromethamine (Toradol) 15 mg IVP Q6 PRN PRN Reason: Pain, moderate (4-7) Last Admin: 09/13/18 06:09 Dose: 15 mg Levothyroxine Sodium (Synthroid) 50 mcg PO DAILY@0630 [facility] Last Admin: 09/14/18 05:51 Dose: 50 mcg Magnesium Oxide (Mag-Ox) 400 mg PO BID [facility] Last Admin: 09/14/18 09:39 Dose: 400 mg Meclizine HCl (Antivert) 25 mg PO DAILY PRN PRN Reason: Dizziness Ondansetron HCl (Zofran Inj) 4 mg IVP Q4 PRN PRN Reason: Nausea/Vomiting Last Admin: 09/14/18 09:43 Dose: 4 mg Potassium Chloride (Potassium Chloride Oral Soln) 20 meq PO QID [facility] Last Admin: 09/14/18 13:22 Dose: 20 meq Spironolactone (Aldactone) 50 mg PO DAILY [facility] Last Admin: 09/12/18 09:24 Dose: 50 mg - Labs Labs: 09/14/18 04:25 09/14/18 04:25 - Head Exam Head Exam: NORMAL INSPECTION - Eye Exam Eye Exam: Normal appearance - ENT Exam ENT Exam: Mucous Membranes Moist - Neck Exam Neck Exam: Full ROM - Respiratory Exam Respiratory Exam: NORMAL BREATHING PATTERN - Cardiovascular Exam Cardiovascular Exam: REGULAR RHYTHM Assessment and Plan - Assessment and Plan (Free Text) Assessment: Electrolyte imbalance K+ level is better today. Ca & Mg not done Required 3-4 runs of KCL Plan: Will order MG & Phos levels Aldosterone level. PRA
--- NOTE | 2018-09-14 15:29 | CP.PCM.PN ---
Subjective - Date & Time of Evaluation Date of Evaluation: 09/14/18 - Subjective Subjective: F/U Hypokalemia Weakness, lightheadedness when standing, feels weak, headache. constipated with no BM for several days. Objective - Vital Signs/Intake and Output Vital Signs (last 24 hours): Temp Pulse Resp BP Pulse Ox 97.6 F 81 18 108/79 99 09/14/18 12:18 09/14/18 12:18 09/14/18 12:18 09/14/18 12:18 09/14/18 12:18 Intake and Output: 09/14/18 09/14/18 06:59 18:59 Intake Total 200 Balance 200 - Medications Medications: Current Medications Clonazepam (Klonopin) 1 mg PO Q12 [facility] Last Admin: 09/14/18 09:41 Dose: 1 mg Enalapril Maleate (Vasotec) 10 mg PO DAILY [facility] Last Admin: 09/12/18 09:24 Dose: 10 mg Ketorolac Tromethamine (Toradol) 15 mg IVP Q6 PRN PRN Reason: Pain, moderate (4-7) Last Admin: 09/13/18 06:09 Dose: 15 mg Levothyroxine Sodium (Synthroid) 50 mcg PO DAILY@0630 [facility] Last Admin: 09/14/18 05:51 Dose: 50 mcg Magnesium Oxide (Mag-Ox) 400 mg PO BID [facility] Last Admin: 09/14/18 09:39 Dose: 400 mg Meclizine HCl (Antivert) 25 mg PO DAILY PRN PRN Reason: Dizziness Ondansetron HCl (Zofran Inj) 4 mg IVP Q4 PRN PRN Reason: Nausea/Vomiting Last Admin: 09/14/18 09:43 Dose: 4 mg Potassium Chloride (Potassium Chloride Oral Soln) 20 meq PO QID [facility] Last Admin: 09/14/18 13:22 Dose: 20 meq Spironolactone (Aldactone) 50 mg PO DAILY [facility] Last Admin: 09/12/18 09:24 Dose: 50 mg - Labs Labs: 09/14/18 04:25 09/14/18 04:25 - Constitutional Appears: No Acute Distress - Head Exam Head Exam: NORMAL INSPECTION - Eye Exam Eye Exam: PERRL - ENT Exam ENT Exam: Normal Exam - Neck Exam Neck Exam: Normal Inspection - Respiratory Exam Respiratory Exam: Clear to Ausculation Bilateral - Cardiovascular Exam Cardiovascular Exam: REGULAR RHYTHM - GI/Abdominal Exam GI & Abdominal Exam: Distended (slightly), Hypoactive Bowel Sounds. absent: Guarding, Rebound - Extremities Exam Extremities Exam: Tenderness (R hand) - Neurological Exam Neurological Exam: Alert, CN II-XII Intact. absent: Motor Sensory Deficit - Psychiatric Exam Psychiatric exam: Anxious - Skin Skin Exam: Warm Assessment and Plan (1) Hypokalemia Status: Acute (2) Hypophosphatemia Status: Acute (3) Hypomagnesemia Status: Acute (4) Pain of right thumb Status: Acute (5) Low back pain Status: Acute (6) Anxiety Status: Chronic (7) Hypothyroidism Status: Chronic (8) HTN (hypertension) Status: Chronic - Assessment and Plan (Free Text) Plan: Continue Potassium- Magnesium replacement and rest of Tx. PT eval
[2018-09-15 00:13] VITALS: RESP 18
[2018-09-15] MEDS: Levothyroxine 50 MCG TAB PO SCH (05:57)
[2018-09-15] MEDS: Potassium Chloride 20 mEq/15 ml LIQ UD PO SCH ×3 (09:37→17:22)
[2018-09-15] MEDS: Magnesium Oxide 400 mg Tab UD PO SCH ×2 (09:37→17:19)
[2018-09-15] MEDS ORDERED: Potassium Chloride 40 MEQ in Sodium Chloride 0.9% 500 ML IV SCH ×2 (11:15→21:00)
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
--- NOTE | 2018-09-15 12:25 | CP.PCM.PN ---
Subjective - Date & Time of Evaluation Date of Evaluation: 09/15/18 Time of Evaluation: 12:00 - Subjective Subjective: C/o headache. No visual complaints Objective - Vital Signs/Intake and Output Vital Signs (last 24 hours): Temp Pulse Resp BP Pulse Ox 97.4 F L 93 H 18 109/73 99 09/15/18 08:09 09/15/18 08:09 09/15/18 08:09 09/15/18 08:09 09/15/18 08:09 Intake and Output: 09/15/18 09/15/18 06:59 18:59 Intake Total 220 Balance 220 - Medications Medications: Current Medications Clonazepam (Klonopin) 1 mg PO Q12 [facility] Last Admin: 09/14/18 20:36 Dose: 1 mg Enalapril Maleate (Vasotec) 10 mg PO DAILY [facility] Last Admin: 09/12/18 09:24 Dose: 10 mg Gabapentin (Neurontin) 100 mg PO TID [facility] Potassium Chloride 40 meq/ (Sodium Chloride) 520 mls @ 80 mls/hr IV .Q6H30M [facility] Ketorolac Tromethamine (Toradol) 15 mg IVP Q6 PRN PRN Reason: Pain, moderate (4-7) Last Admin: 09/14/18 20:36 Dose: 15 mg Levothyroxine Sodium (Synthroid) 50 mcg PO DAILY@0630 [facility] Last Admin: 09/15/18 05:57 Dose: 50 mcg Magnesium Oxide (Mag-Ox) 400 mg PO BID [facility] Last Admin: 09/15/18 09:37 Dose: 400 mg Meclizine HCl (Antivert) 25 mg PO DAILY PRN PRN Reason: Dizziness Morphine Sulfate (Morphine) 1 mg IVP Q4 PRN PRN Reason: Pain, severe (8-10) Ondansetron HCl (Zofran Inj) 4 mg IVP Q4 PRN PRN Reason: Nausea/Vomiting Last Admin: 09/15/18 09:44 Dose: 4 mg Potassium Chloride (Potassium Chloride Oral Soln) 30 meq PO QID [facility] Potassium Phos/Sodium Phos (Neutra-Phos) 1 pkt PO BID [facility] Spironolactone (Aldactone) 50 mg PO DAILY [facility] Last Admin: 09/15/18 09:37 Dose: 50 mg Tramadol HCl (Ultram) 50 mg PO Q6 PRN PRN Reason: Pain, severe (8-10) Zolpidem Tartrate (Ambien) 10 mg PO HS PRN PRN Reason: Insomnia Last Admin: 09/14/18 23:23 Dose: 10 mg - Labs Labs: 09/14/18 04:25 09/15/18 04:20 - Head Exam Head Exam: NORMAL INSPECTION - Eye Exam Eye Exam: Normal appearance - ENT Exam ENT Exam: Mucous Membranes Moist - Respiratory Exam Respiratory Exam: NORMAL BREATHING PATTERN - Cardiovascular Exam Cardiovascular Exam: REGULAR RHYTHM - GI/Abdominal Exam GI & Abdominal Exam: Soft - Extremities Exam Additional comments: No ECC Assessment and Plan - Assessment and Plan (Free Text) Assessment: Hypokalemia. K+ remains low despite aggressive replacement MG is normal Cause of hypokalemia in not clear. Pt has had extensive w/u in the past. Plan: Encourage diet high in K containing foods Cont with K+ supplementation. Phos supplemented
--- NOTE | 2018-09-15 14:18 | CP.PCM.PN ---
Subjective - Date & Time of Evaluation Date of Evaluation: 09/15/18 Objective - Vital Signs/Intake and Output Vital Signs (last 24 hours): Temp Pulse Resp BP Pulse Ox 97.8 F 87 18 115/76 100 09/15/18 12:31 09/15/18 12:31 09/15/18 12:31 09/15/18 12:31 09/15/18 12:31 Intake and Output: 09/15/18 09/15/18 06:59 18:59 Intake Total 220 Balance 220 - Medications Medications: Current Medications Clonazepam (Klonopin) 1 mg PO Q12 [facility] Last Admin: 09/15/18 09:00 Dose: 1 mg Enalapril Maleate (Vasotec) 10 mg PO DAILY [facility] Last Admin: 09/12/18 09:24 Dose: 10 mg Gabapentin (Neurontin) 100 mg PO TID [facility] Last Admin: 09/15/18 13:16 Dose: 100 mg Potassium Chloride 40 meq/ (Sodium Chloride) 520 mls @ 80 mls/hr IV .Q6H30M [facility] Last Admin: 09/15/18 13:15 Dose: 80 mls/hr Ketorolac Tromethamine (Toradol) 15 mg IVP Q6 PRN PRN Reason: Pain, moderate (4-7) Last Admin: 09/14/18 20:36 Dose: 15 mg Levothyroxine Sodium (Synthroid) 50 mcg PO DAILY@0630 [facility] Last Admin: 09/15/18 05:57 Dose: 50 mcg Magnesium Oxide (Mag-Ox) 400 mg PO BID [facility] Last Admin: 09/15/18 09:37 Dose: 400 mg Meclizine HCl (Antivert) 25 mg PO DAILY PRN PRN Reason: Dizziness Morphine Sulfate (Morphine) 1 mg IVP Q4 PRN PRN Reason: Pain, severe (8-10) Ondansetron HCl (Zofran Inj) 4 mg IVP Q4 PRN PRN Reason: Nausea/Vomiting Last Admin: 09/15/18 09:44 Dose: 4 mg Potassium Chloride (Potassium Chloride Oral Soln) 30 meq PO QID [facility] Last Admin: 09/15/18 13:16 Dose: 30 meq Potassium Phos/Sodium Phos (Neutra-Phos) 1 pkt PO BID [facility] Stop: 09/17/18 09:01 Spironolactone (Aldactone) 50 mg PO DAILY [facility] Last Admin: 09/15/18 09:37 Dose: 50 mg Tramadol HCl (Ultram) 50 mg PO Q6 PRN PRN Reason: Pain, severe (8-10) Zolpidem Tartrate (Ambien) 10 mg PO HS PRN PRN Reason: Insomnia Last Admin: 09/14/18 23:23 Dose: 10 mg - Labs Labs: 09/14/18 04:25 09/15/18 04:20 Assessment and Plan (1) Hypokalemia Status: Acute (2) Hypophosphatemia Status: Acute (3) Hypomagnesemia Status: Acute (4) Pain of right thumb Status: Acute (5) Low back pain Status: Acute (6) Anxiety Status: Chronic (7) Hypothyroidism Status: Chronic (8) HTN (hypertension) Status: Chronic
[2018-09-15 15:47] VITALS: BP 113/77; PULSE 88; TEMP 98.2
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
[2018-09-15] MEDS ORDERED: Potassium & Sodium Phosphate PO SCH (17:00)
[2018-09-15 17:08] VITALS: O2SAT 100
--- NOTE | 2018-09-15 18:48 | CP.PCM.DIS ---
Provider - Provider Date of Admission: 09/12/18 14:41 Attending physician: David Daniel MD Diagnosis - Discharge Diagnosis (1) Hypokalemia Status: Acute Priority: High (2) Hypophosphatemia Status: Acute (3) Hypomagnesemia Status: Acute (4) Pain of right thumb Status: Acute Priority: High (5) Low back pain Status: Acute Priority: High (6) Anxiety Status: Chronic Priority: High (7) Hypothyroidism Status: Chronic Priority: Medium (8) HTN (hypertension) Status: Chronic Priority: Medium Hospital Course - Lab Results Lab Results: Most Recent Lab Values WBC 6.1 K/uL (4.8-10.8) 09/14/18 04:25 RBC 3.47 Mil/uL (3.80-5.20) L 09/14/18 04:25 Hgb 11.1 g/dL (12.0-16.0) L 09/14/18 04:25 Hct 32.0 % (34.0-47.0) L 09/14/18 04:25 MCV 92.3 fl (81.0-99.0) 09/14/18 04:25 MCH 32.0 pg (27.0-31.0) H 09/14/18 04:25 MCHC 34.7 g/dL (33.0-37.0) 09/14/18 04:25 RDW 13.6 % (11.5-14.5) 09/14/18 04:25 Plt Count 360 K/uL (130-400) 09/14/18 04:25 MPV 7.9 fl (7.2-11.7) 09/10/18 20:37 Neut % (Auto) 66.1 % (50.0-75.0) 09/10/18 20:37 Lymph % (Auto) 26.4 % (20.0-40.0) 09/10/18 20:37 [place] % (Auto) 6.5 % (0.0-10.0) 09/10/18 20:37 Eos % (Auto) 0.3 % (0.0-4.0) 09/10/18 20:37 Baso % (Auto) 0.7 % (0.0-2.0) 09/10/18 20:37 Neut # (Auto) 5.8 K/uL (1.8-7.0) 09/10/18 20:37 Lymph # (Auto) 2.3 K/uL (1.0-4.3) 09/10/18 20:37 [place] # (Auto) 0.6 K/uL (0.0-0.8) 09/10/18 20:37 Eos # (Auto) 0.0 K/uL (0.0-0.7) 09/10/18 20:37 Baso # (Auto) 0.1 K/uL (0.0-0.2) 09/10/18 20:37 Sodium 141 mmol/l (132-148) 09/14/18 04:25 Potassium 3.6 MMOL/L (3.6-5.0) 09/15/18 15:35 Chloride 107 mmol/L (98-107) 09/14/18 04:25 Carbon Dioxide 28 mmol/L (22-30) 09/14/18 04:25 Anion Gap 9 (10-20) L 09/14/18 04:25 BUN 8 mg/dl (7-17) 09/14/18 04:25 Creatinine 0.8 mg/dl (0.7-1.2) 09/14/18 04:25 Est GFR ( Amer) > 60 09/14/18 04:25 Est GFR (Non-Af Amer) > 60 09/14/18 04:25 POC Glucose (mg/dL) 169 mg/dL (65-110) H 09/13/18 05:12 Random Glucose 90 mg/dL (65-105) 09/14/18 04:25 Calcium 7.9 mg/dL (8.4-10.2) L 09/14/18 04:25 Phosphorus 2.3 mg/dl (2.5-4.5) L 09/14/18 14:18 Magnesium 1.6 MG/DL (1.6-2.3) 09/15/18 04:20 Total Bilirubin 0.3 mg/dl (0.2-1.3) 09/13/18 06:00 AST 32 U/L (14-36) 09/13/18 06:00 ALT 19 U/L (9-52) 09/13/18 06:00 Alkaline Phosphatase 36 U/L (38-126) L 09/13/18 06:00 Total Protein 5.5 G/DL (6.3-8.2) L 09/13/18 06:00 Albumin 3.0 g/dL (3.5-5.0) L 09/13/18 06:00 Globulin 2.5 gm/dL (2.2-3.9) 09/13/18 06:00 Albumin/Globulin Ratio 1.2 (1.0-2.1) 09/13/18 06:00 Triglycerides 184 mg/DL (0-149) H 09/11/18 04:25 Cholesterol 177 mg/dL (0-199) 09/11/18 04:25 LDL Cholesterol Direct 90 mg/dL (0-129) 09/11/18 04:25 HDL Cholesterol 82 MG/DL (30-70) H 09/11/18 04:25 Phospholipids 251 mg/dL (151-264) 09/11/18 14:37 Thyroxine (T4) 7.81 ug/dl (5.5-11.0) 09/11/18 04:25 TSH 3rd Generation 0.41 mIU/ML (0.46-4.68) L 09/11/18 04:25 Urine Color Yellow (YELLOW) 09/11/18 20:46 Urine Clarity Clear (Clear) 09/11/18 20:46 Urine pH 6.0 (5.0-8.0) 09/11/18 20:46 Ur Specific [place] 1.009 (1.003-1.030) 09/11/18 20:46 Urine Protein Negative mg/dL (NEGATIVE) 09/11/18 20:46 Urine Glucose (UA) Neg mg/dL (Normal) 09/11/18 20:46 Urine Ketones Negative mg/dL (NEGATIVE) 09/11/18 20:46 Urine Blood Negative (NEGATIVE) 09/11/18 20:46 Urine Nitrate Negative (NEGATIVE) 09/11/18 20:46 Urine Bilirubin Negative (NEGATIVE) 09/11/18 20:46 Urine Urobilinogen 0.2-1.0 mg/dL (0.2-1.0) 09/11/18 20:46 Ur Leukocyte Esterase Neg G[place]ang/uL (Negative) 09/11/18 20:46 Urine RBC (Auto) < 1 /hpf (0-3) 09/11/18 20:46 Urine Microscopic WBC 1 /hpf (0-5) 09/11/18 20:46 Ur Squamous Epith Cells 1 /hpf (0-5) 09/11/18 20:46 Urine Bacteria Rare (<OCC) 09/11/18 20:46 Ur Random Creatinine 55.7 mg/dL 09/11/18 20:48 U Random Total Protein 16 mg/L 09/11/18 20:46 Ur Random Sodium 61 mmol/L 09/11/18 20:46 Ur Random Potassium 14.2 mmol/L 09/11/18 20:46 Urine Chloride 68 mmol/L (32-290) 09/11/18 14:41 Urine Magnesium 6.4 mg/dL 09/11/18 20:48 Discharge Exam - Head Exam Head Exam: ATRAUMATIC, NORMOCEPHALIC Discharge Plan - Discharge Medications Prescriptions: Gabapentin [Neurontin] 100 mg PO TID #14 cap Potassium Chloride [Potassium Chloride Oral Soln] 30 meq PO QID #120 udc traMADol [Ultram] 50 mg PO Q6 PRN #20 tab PRN Reason: Pain, Severe (8-10) - Follow Up Plan Condition: FAIR Disposition: HOME/ ROUTINE Instructions: Hypokalemia (DC), Low Back Pain (DC) Additional Instructions: follow up with pmd in 1 week Referrals: Emery Barton MD [Family Provider] -
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
[2018-09-17 02:07] LABS: ALDO/PRA RATIO 0.6 Ratio (0.9-28.9)
== END 2018-09-15 18:05 | disposition home or self-care (01) | DRG 297 ==
LOC: H.ER 19:34 → H.ERHOLD 21:43 → H.TEL 09-11 01:28 → OBSVTOIN 09-12 14:41
PROVIDERS: ADMIT Internal Medicine Pulmonary Disease; ATTEND Internal Medicine Pulmonary Disease
DX: E87.6 Hypokalemia (principal); E83.42 Hypomagnesemia; E83.39 Other disorders of phosphorus metabolism; F41.1 Generalized anxiety disorder; I11.9 Hypertensive heart disease without heart failure; G89.21 Chronic pain due to trauma; E03.9 Hypothyroidism, unspecified; E78.5 Hyperlipidemia, unspecified; K59.00 Constipation, unspecified; V89.2XXS Person injured in unspecified motor-vehicle accident, traffic, sequela; Z86.59 Personal history of other mental and behavioral disorders; Z91.14 Patient's other noncompliance with medication regimen; K29.70 Gastritis, unspecified, without bleeding; Z79.899 Other long term (current) drug therapy; M54.5 Low back pain; M79.644 Pain in right finger(s); Z88.6 Allergy status to analgesic agent

== ENCOUNTER 2018-11-21 18:36 | Emergency (ER) | payer OTHER ==
[2018-11-21 18:36] VITALS: BMI 24.2
[2018-11-21 18:49] VITALS: RESP 18; O2SAT 99
[2018-11-21] MEDS ORDERED: Lidocaine 1% Inj (20ml) ONE (19:12)
--- NOTE | 2018-11-21 19:12 | ED PDOC ---
Syncope/Near Syncope/Dizziness Time Seen by Provider: 11/21/18 19:04 Chief Complaint (Nursing): Upper Extremity Problem/Injury Chief Complaint (Provider): Upper Extremity Problem/Injury s/p near syncope History Per: Patient History/Exam Limitations: no limitations Onset/Duration Of Symptoms: Hrs Current Symptoms Are (Timing): Still Present Activity At Onset Of Symptoms: Had Just Stood up Seizure Or Post-ictal Symptoms: None Additional Complaint(s): 42 y/o female presents to the ED for evaluation of a right shoulder injury s/p near syncope, onset 15 hours prior to arrival. Patient reports she was sitting down, and had just stood up when she became dizzy and fell forward, sustaining a small laceration above the eyebrow and an injury to her right shoulder. Pt further shares that she took 10mg of Ambien and consummed considerable tequila prior to her "syncopal" episode. Of note, patient's states patient does not eat very well and is only supposed to take medications when she eats. PMD: Non [facility] Provider (Dr. Ana Paula Valera) Past Medical History Reviewed: Historical Data (00) Vital Signs: Last Vital Signs Temp 97.7 F 11/21/18 18:45 Pulse 87 11/21/18 18:45 Resp 18 11/21/18 18:45 BP 136/89 11/21/18 18:45 Pulse Ox 99 11/21/18 18:45 - Medical History PMH: Anemia, Anxiety, Gastritis, HTN, Hypothyroidism Denies: HIV, Chronic Kidney Disease - Surgical History Surgical History: Hernia Repair (b/l inguinal) - Family History Family History: States: Hypertension - Social History Alcohol: Social - Home Medications Home Medications: Ambulatory Orders Medication Instructions Recorded RX: Levothyroxine [Synthroid] 50 mcg PO DAILY 02/13/17 RX: Omeprazole 40 mg PO DAILY 02/13/17 RX: Zolpidem [Ambien] 10 mg PO DAILY 02/13/17 RX: clonazePAM [Klonopin] 1 mg PO BID 02/13/17 RX: Spironolactone [Aldactone] 50 mg PO DAILY #30 tablet 02/25/17 RX: Enalapril Maleate [Vasotec] 10 mg PO DAILY 09/10/18 RX: Meclizine [Meclizine*] 25 mg PO DAILY PRN 09/10/18 RX: Gabapentin [Neurontin] 100 mg PO TID #14 cap 09/15/18 RX: Potassium Chloride [Potassium 30 meq PO QID #120 udc 09/15/18 Chloride Oral Soln] RX: traMADol [Ultram] 50 mg PO Q6 PRN #20 tab 09/15/18 Cephalexin [cephalexin] 500 mg PO QID #20 cap 11/21/18 - Allergies Allergies/Adverse Reactions: Allergies Allergy/AdvReac Type Severity Reaction Status Date / Time codeine Allergy RASH Verified 02/18/18 14:31 Review of Systems ROS Statement: Except As Marked, All Systems Reviewed And Found Negative Musculoskeletal: Positive for: Shoulder Pain (right) Skin: Positive for: Other (laceration above the right eyebrow) Neurological: Positive for: Dizziness Physical Exam - Reviewed Nursing Documentation Reviewed: Yes Vital Signs Reviewed: Yes - Physical Exam Appears: Positive for: No Acute Distress Head Exam: Positive for: ATRAUMATIC (2 mm laceration noted above the right eyebrow) Skin: Positive for: Normal Color, Warm, Dry Eye Exam: Positive for: Normal appearance Neck: Positive for: Normal, Painless ROM Cardiovascular/Chest: Positive for: Regular Rate, Rhythm. Negative for: Murmur Respiratory: Positive for: Normal Breath Sounds. Negative for: Respiratory Distress Extremity: Negative for: Normal ROM (Limited ROM to forward elevation (less than 90), abduction (less than 10), internal and external rotation (less than 5). Scarf sign positive. Hawkings sign positive.), Deformity Neurologic/Psych: Positive for: Alert, Oriented. Negative for: Motor/Sensory Deficits - ECG O2 Sat by Pulse Oximetry: 99 (RA) Pulse Ox Interpretation: Normal Medical Decision Making Medical Decision Making: Time: 1906 Plan: -- Shoulder Right XR Time: 1942 -- Laceration repair performed. Time: 2047 -- XR as read by ASHLEY demonstrates no acute findings, no fractures. Scribe Attestation: Documented by Ebonie Davenport, acting as a scribe for Yogesh Castaneda PA-C. Provider Scribe Attestation: All medical record entries made by the Scribe were at my direction and personally dictated by me. I have reviewed the chart and agree that the record accurately reflects my personal performance of the history, physical exam, medical decision making, and the department course for this patient. I have also personally directed, reviewed, and agree with the discharge instructions and disposition. Procedures - Laceration/Wound Repair Right Eye Wound Length (cm): 0.2 (subcuticular) Wound Explored: clean Betadine Prep?: Yes Anesthesia: 1% Lidocaine Wound Debrided: minimal Wound Repaired With: Sutures Suture Size/Type: 3:0 (monocryl) Wound Complexity: Simple Disposition - Clinical Impression Clinical Impression: Eyebrow laceration - Patient ED Disposition Is Patient to be Admitted: No Counseled Patient/Family Regarding: Studies Performed, Diagnosis, Rx Given - Disposition Referrals: Ana Paula March MD [IM] - Disposition: Routine/Home Disposition Time: 20:52 Condition: STABLE Additional Instructions: sutures are internal and need not be removed Prescriptions: Cephalexin [cephalexin] 500 mg PO QID #20 cap Instructions: Laceration Repair With Stitches (DC) Forms: [employer] (Ukrainian)
[2018-11-21 21:57] VITALS: BP 130/78; PULSE 70; TEMP 98.2
--- NOTE | 2018-11-22 09:09 | RAD ---
Date of service: 11/21/2018 PROCEDURE: Radiographs of the Right Shoulder HISTORY: trauma COMPARISON: No prior. FINDINGS: BONES: Normal. No fracture. JOINTS: Normal. Glenohumeral and acromioclavicular joints preserved. No osteoarthritis. SOFT TISSUES: Normal. OTHER FINDINGS: None. IMPRESSION: Normal radiographs of the right shoulder.
== END 2018-11-21 21:57 | disposition home or self-care (01) ==
LOC: H.ER 18:36
DX: R55 Syncope and collapse (principal); S01.81XA Laceration without foreign body of other part of head, initial encounter; W19.XXXA Unspecified fall, initial encounter; Y92.89 Other specified places as the place of occurrence of the external cause

== ENCOUNTER 2018-12-01 21:01 | Observation (INO) | payer OTHER ==
[2018-12-01 21:01] VITALS: BMI 24.2
--- NOTE | 2018-12-01 22:18 | ED PDOC ---
HPI: Chest Pain Time Seen by Provider: 12/01/18 21:39 Chief Complaint (Nursing): Chest Pain Chief Complaint (Provider): Chest Pain History Per: Patient History/Exam Limitations: no limitations Onset/Duration Of Symptoms: Hrs Current Symptoms Are (Timing): Still Present Additional Complaint(s): Patient is a 42 y/o female with a PMHx of anemia, anxiety, gastritis, HTN, and hypothyroidism who presents to the ED for evaluation of chest pain, onset earlier today. Patient states the severity of her pain is a 5/10. Patient notes on 11/27/2018 she had outpatient labs done. Patient reports she was instructed to contact the ED for low potassium levels. PCP: Gerda Garvin Past Medical History Reviewed: Historical Data, Nursing Documentation, Vital Signs Vital Signs: Last Vital Signs Temp 98.2 F 12/01/18 21:08 Pulse 114 H 12/01/18 21:08 Resp 16 12/01/18 21:08 BP 133/88 12/01/18 21:08 Pulse Ox 97 12/01/18 21:08 - Medical History PMH: Anemia, Anxiety, Gastritis, HTN, Hypothyroidism Denies: HIV, Chronic Kidney Disease - Surgical History Surgical History: Hernia Repair (b/l inguinal) - Family History Family History: States: Unknown Family Hx, Hypertension - Social History Current smoker - smoking cessation education provided: No Alcohol: Social Drugs: Denies - Home Medications Home Medications: Ambulatory Orders Medication Instructions Recorded RX: Levothyroxine [Synthroid] 50 mcg PO DAILY 02/13/17 RX: Zolpidem [Ambien] 10 mg PO HS 02/13/17 RX: clonazePAM [Klonopin] 1 mg PO TID PRN 02/13/17 RX: Potassium Chloride [Potassium 40 meq PO QID 12/02/18 Chloride Oral Soln] - Allergies Allergies/Adverse Reactions: Allergies Allergy/AdvReac Type Severity Reaction Status Date / Time codeine Allergy RASH Verified 02/18/18 14:31 Review of Systems ROS Statement: Except As Marked, All Systems Reviewed And Found Negative Cardiovascular: Positive for: Chest Pain Physical Exam - Reviewed Nursing Documentation Reviewed: Yes Vital Signs Reviewed: Yes - Physical Exam Appears: Positive for: No Acute Distress Head Exam: Positive for: ATRAUMATIC, NORMAL INSPECTION, NORMOCEPHALIC Skin: Positive for: Normal Color Eye Exam: Positive for: Normal appearance, EOMI, PERRL ENT: Positive for: Normal ENT Inspection Neck: Positive for: Normal Cardiovascular/Chest: Positive for: Regular Rate, Rhythm Respiratory: Positive for: Normal Breath Sounds Gastrointestinal/Abdominal: Positive for: Normal Exam, Soft. Negative for: Tenderness Extremity: Positive for: Normal ROM (Upper/Lower) Neurologic/Psych: Positive for: Alert, Oriented - Laboratory Results Result Diagrams: 12/01/18 22:35 12/01/18 22:35 - ECG ECG Rhythm: Positive for: Normal ST Segment (no ST elevation), Sinus Rhythm Rate: 106 O2 Sat by Pulse Oximetry: 97 (RA) Pulse Ox Interpretation: Normal Medical Decision Making Medical Decision Making: Time: 2111 Plan: EKG CMP Troponin I CBC 23:21 Patient's lab results reveal potassium levels of 2.5. 40 meq of oral potassium ordered. Advising patient to stay in the hospital for further treatment. 23:31 Informed patient of her results. She is deciding if she would like to stay. Recommending admission at this time. 23:59 Patient agreed to admission. IV potassium ordered. Dr. Gaming was called. He accepted patient for admission due to hypokalemia and chest pain. Scribe Attestation: Documented by Darnell Ram, acting as a scribe for provider Deepti St MD. All medical record entries made by the Scribe were at my direction and personally dictated by me. I have reviewed the chart and agree that the record accurately reflects my personal performance of the history, physical exam, medical decision making, and the department course for this patient. I have also personally directed, reviewed, and agree with the discharge instructions and disposition. Disposition - Clinical Impression Clinical Impression: Chest pain, Hypokalemia - Patient ED Disposition Is Patient to be Admitted: Yes Counseled Patient/Family Regarding: Studies Performed, Diagnosis - Disposition Disposition Time: 23:59 Condition: STABLE - Pt Status Changed To: Hospital Disposition Of: Observation
[2018-12-01 22:44] LABS: BASO # 0.1 K/uL (0.0-0.2); BASO % 0.8 % (0.0-2.0); EOS # 0.1 K/uL (0.0-0.7); EOS % 0.7 % (0.0-4.0); HEMOGLOBIN 13.9 g/dL (12.0-16.0); LYMPH # 2.3 K/uL (1.0-4.3); LYMPH % 26.6 % (20.0-40.0); MEAN CELL VOLUME 91.3 fl (81.0-99.0); MEAN CORPUSCULAR HEMOGLOBIN 31.3 pg (27.0-31.0); MEAN CORPUSCULAR HGB CONC 34.3 g/dL (33.0-37.0); MEAN PLATELET VOLUME 8.1 fl (7.2-11.7); MONO # 0.6 K/uL (0.0-0.8); MONO % 6.3 % (0.0-10.0); NEUT # 5.7 K/uL (1.8-7.0); NEUT % 65.6 % (50.0-75.0); RBC 4.45 Mil/uL (3.80-5.20); RED CELL DISTRIBUTION WIDTH 13.2 % (11.5-14.5); WHITE BLOOD COUNT 8.7 K/uL (4.8-10.8)
[2018-12-01 23:22] LABS: ALB/GLOB RATIO 1.5 (1.0-2.1); ALBUMIN 4.7 g/dL (3.5-5.0); ALT/SGPT 26 U/L (9-52); AST/SGOT 24 U/L (14-36); BLOOD UREA NITROGEN 6 mg/dl (7-17); CALCIUM 8.9 mg/dL (8.4-10.2); GFR NON-AFRICAN AMERICAN > 60
[2018-12-01] MEDS ORDERED: Potassium Chloride 20 mEq ER Tab PO STA (23:24)
[2018-12-01] MEDS ORDERED: Potassium CL 10 MEQ/50 ML 50 ML IVPB ONE (23:56)
[2018-12-02] MEDS ORDERED: Potassium CL 10 MEQ/50 ML 50 ML ONE (00:07)
--- NOTE | 2018-12-02 07:12 | CP.PCM.CON ---
History of Present Illness - History of Present Illness History of Present Illness: 42 y/o came to ER with c/o hypokalemia found on routine labs this apparently has been a problem for several years also, c/o of chest pain dull aching/no relation to exertion K: 2.5 Troponin: neg EKG: Normal Past Patient History - Infectious Disease Hx of Infectious Diseases: None - Past Medical History & Family History Past Medical History?: Yes - Past Social History Alcohol: Social Drugs: Denies - CARDIAC Hx Hypertension: Yes - PULMONARY Hx Respiratory Disorders: No - NEUROLOGICAL Hx Neurological Disorder: No - HEENT Hx HEENT Problems: Yes - RENAL Hx Chronic Kidney Disease: No - ENDOCRINE/METABOLIC Hx Hypothyroidism: Yes - HEMATOLOGICAL/ONCOLOGICAL Hx Anemia: Yes Hx Human Immunodeficiency Virus (HIV): No - INTEGUMENTARY Hx Dermatological Problems: No - MUSCULOSKELETAL/RHEUMATOLOGICAL Hx Musculoskeletal Disorders: Yes Hx Back Pain: Yes Hx Falls: No - GASTROINTESTINAL Hx Gastritis: Yes - GENITOURINARY/GYNECOLOGICAL Hx Genitourinary Disorders: No - PSYCHIATRIC Hx Anxiety: Yes - SURGICAL HISTORY Hx Surgeries: Yes Hx Herniorrhaphy: Yes (Bilateral inguinal) Other/Comment: inguinal hernia sx. back sx 14 years ago as per patient - ANESTHESIA Hx Anesthesia: Yes Hx Anesthesia Reactions: No Hx Malignant Hyperthermia: No Meds Allergies/Adverse Reactions: Allergies Allergy/AdvReac Type Severity Reaction Status Date / Time codeine Allergy RASH Verified 02/18/18 14:31 - Medications Medications: Current Medications Aspirin (Aspirin Chewable) 81 mg PO DAILY [facility] Clonazepam (Klonopin) 1 mg PO TID PRN PRN Reason: Anxiety Enoxaparin Sodium (Lovenox) 40 mg SC DAILY [facility]; Protocol Levothyroxine Sodium (Synthroid) 50 mcg PO DAILY@0630 [facility] Zolpidem Tartrate (Ambien) 5 mg PO HS [facility] Last Admin: 12/02/18 02:47 Dose: 5 mg Results - Vital Signs Recent Vital Signs: Last Vital Signs Temp 97.7 F 12/02/18 06:38 Pulse 79 12/02/18 06:38 Resp 18 12/02/18 06:38 BP 103/69 12/02/18 06:38 Pulse Ox 100 12/02/18 06:38 - Labs Result Diagrams: 12/02/18 08:06 12/02/18 08:06 Labs: Laboratory Results - last 24 hr 12/01/18 12/01/18 22:35 22:35 WBC 8.7 RBC 4.45 Hgb 13.9 Hct 40.6 MCV 91.3 MCH 31.3 H MCHC 34.3 RDW 13.2 Plt Count 382 MPV 8.1 Neut % (Auto) 65.6 Lymph % (Auto) 26.6 [place] % (Auto) 6.3 Eos % (Auto) 0.7 Baso % (Auto) 0.8 Neut # (Auto) 5.7 Lymph # (Auto) 2.3 [place] # (Auto) 0.6 Eos # (Auto) 0.1 Baso # (Auto) 0.1 Sodium 135 Potassium 2.5 L* Chloride 96 L Carbon Dioxide 29 Anion Gap 13 BUN 6 L Creatinine 0.7 Est GFR ( Amer) > 60 Est GFR (Non-Af Amer) > 60 Random Glucose 104 Calcium 8.9 Total Bilirubin 0.3 AST 24 ALT 26 Alkaline Phosphatase 71 Troponin I < 0.0120 Total Protein 7.9 Albumin 4.7 Globulin 3.2 Albumin/Globulin Ratio 1.5 Assessment & Plan (1) Chest pain Assessment and Plan: Non cardiac chest pain the pt is stable cardiac dietrich Status: Acute (2) Hypokalemia Status: Acute
[2018-12-02 08:11] LABS: HEMOGLOBIN 13.2 g/dL (12.0-16.0); MEAN CELL VOLUME 94.3 fl (81.0-99.0); RBC 4.13 Mil/uL (3.80-5.20); RED CELL DISTRIBUTION WIDTH 13.3 % (11.5-14.5); WHITE BLOOD COUNT 7.4 K/uL (4.8-10.8)
[2018-12-02 08:22] LABS: ALB/GLOB RATIO 1.5 (1.0-2.1); ALBUMIN 4.2 g/dL (3.5-5.0); ALT/SGPT 29 U/L (9-52); AST/SGOT 26 U/L (14-36); CALCIUM 8.8 mg/dL (8.4-10.2); GFR NON-AFRICAN AMERICAN > 60; HDL CHOLESTEROL 92 MG/DL (30-70)
[2018-12-02 08:33] LABS: LDL CHOLESTEROL 102 mg/dL (0-129)
[2018-12-02 08:40] LABS: BLOOD UREA NITROGEN 8 mg/dl (7-17)
[2018-12-02] MEDS ORDERED: Potassium Chloride 20 mEq ER Tab PO SCH (09:00)
--- NOTE | 2018-12-02 10:13 | HP ---
HISTORY OF PRESENT ILLNESS: Ms. Ramires is a 42-year-old female who was admitted via the emergency room because of severe hypokalemia found on routine labs and chest pain for the past several months prior to presentation. She indicates that she has had hypokalemia and has had difficulty having potassium corrected and chest pains had also been persistent for quite a few months. She indicates that symptoms first started multiple years ago. PAST MEDICAL HISTORY: Hypokalemia, anxiety disorder and chest pains. FAMILY HISTORY: Nonrevealing. SOCIAL HISTORY: She denies smoking or alcohol use. REVIEW OF SYSTEMS: Essentially remarkable for anxiety and chest pains. PHYSICAL EXAMINATION: GENERAL: The patient is alert and oriented. VITAL SIGNS: Blood pressure of 103/69 with a pulse of 79, respiratory rate 18. She is febrile. O2 sat 100% on room air. SKIN: Shows fair turgor. HEENT: Pupils are equal and reactive to light and accommodation. Mouth shows fair hygiene. LUNGS: Clear. HEART: Regular. No murmurs or gallop. BREASTS: Normal. No chest wall tenderness. ABDOMEN: Soft, nontender, no organomegaly. EXTREMITIES: Show no edema or cyanosis. CENTRAL NERVOUS SYSTEM: Exam grossly intact. LABORATORY DATA: WBC 8.7, hemoglobin 13.9, platelet count 382,000. Sodium 135, potassium 2.5, BUN 6, creatinine 0.7, serum glucose 104. IMPRESSION: Severe hypokalemia, questionable etiology; chest pains, probably atypical, the patient has had this for years; anxiety disorder; history of hypothyroidism. PLAN: Monitor the patient in telemetry. Supplement potassium. Monitor potassium closely. Antianxiety medication. Cardiology evaluation. We will try replacing potassium. Once potassium level is back to normal and cleared by Cardiology, we will probably discharge and follow up as outpatient. Arron Gaming MD
--- NOTE | 2018-12-02 10:17 | CARD ---
APPROVED REPORT Date of service: 12/02/2018 EKG Measurement Heart [id number] <Conclusion> Normal Sinus rhythm Normal Electrocardiogram
--- NOTE | 2018-12-02 10:24 | CARD ---
APPROVED REPORT Date of service: 12/01/2018 EKG Measurement Heart [id number] [id number] <Conclusion> Sinus tachycardia Otherwise normal ECG
[2018-12-02] MEDS: Potassium Chloride 20 mEq 100 ML IVPB SCH ×4 (10:31→19:28)
[2018-12-02] MEDS: Enoxaparin 40 mg Syringe SC SCH (11:00)
[2018-12-02] MEDS: Levothyroxine 50 MCG TAB PO SCH (11:00)
[2018-12-02 18:43] LABS: BLOOD UREA NITROGEN 12 mg/dl (7-17); CALCIUM 8.2 mg/dL (8.4-10.2); GFR NON-AFRICAN AMERICAN 55
[2018-12-02] MEDS ORDERED: Patient's Own Med (Zolpidem [Ambien] 10 MG) PO SCH (22:00)
[2018-12-03] MEDS: Levothyroxine 50 MCG TAB PO SCH (05:46)
[2018-12-03 06:17] VITALS: PULSE 76
[2018-12-03 08:09] VITALS: BP 97/57; RESP 20; TEMP 97.6; O2SAT 100
--- NOTE | 2018-12-03 08:30 | CP.PCM.DIS ---
Provider - Provider Date of Admission: 12/02/18 00:00 Attending physician: Arron Gaming MD Consults: 12/02/18 07:00 Cardiology Consult Routine Comment: Consulting Provider: Juan Cox Consulting Physician: Juan Cox Reason for Consult: chest pain 12/02/18 15:51 Pastoral Care Referral Routine Comment: Physician Instructions: Reason For Exam: advance directive 12/02/18 18:26 Wound Care [Nursing Referral for Wound Care] Routine Comment: Physician Instructions: Reason For Exam: right eyebrow laceration Time Spent in preparation of Discharge (in minutes): 35 Diagnosis - Discharge Diagnosis (1) Chest pain Status: Acute (2) Hypokalemia Status: Acute (3) Anxiety Status: Chronic Priority: High (4) HTN (hypertension) Status: Chronic Priority: Medium (5) Hypothyroidism Status: Chronic Priority: Medium Hospital Course - Lab Results Lab Results: Most Recent Lab Values WBC 7.4 K/uL (4.8-10.8) 12/02/18 08:06 RBC 4.13 Mil/uL (3.80-5.20) 12/02/18 08:06 Hgb 13.2 g/dL (12.0-16.0) 12/02/18 08:06 Hct 39.0 % (34.0-47.0) 12/02/18 08:06 MCV 94.3 fl (81.0-99.0) D 12/02/18 08:06 MCH 32.0 pg (27.0-31.0) H 12/02/18 08:06 MCHC 34.0 g/dL (33.0-37.0) 12/02/18 08:06 RDW 13.3 % (11.5-14.5) 12/02/18 08:06 Plt Count 353 K/uL (130-400) 12/02/18 08:06 MPV 8.1 fl (7.2-11.7) 12/01/18 22:35 Neut % (Auto) 65.6 % (50.0-75.0) 12/01/18 22:35 Lymph % (Auto) 26.6 % (20.0-40.0) 12/01/18 22:35 Dundy % (Auto) 6.3 % (0.0-10.0) 12/01/18 22:35 Eos % (Auto) 0.7 % (0.0-4.0) 12/01/18 22:35 Baso % (Auto) 0.8 % (0.0-2.0) 12/01/18 22:35 Neut # (Auto) 5.7 K/uL (1.8-7.0) 12/01/18 22:35 Lymph # (Auto) 2.3 K/uL (1.0-4.3) 12/01/18 22:35 Dundy # (Auto) 0.6 K/uL (0.0-0.8) 12/01/18 22:35 Eos # (Auto) 0.1 K/uL (0.0-0.7) 12/01/18 22:35 Baso # (Auto) 0.1 K/uL (0.0-0.2) 12/01/18 22:35 Sodium 138 mmol/l (132-148) 12/02/18 17:49 Potassium 3.2 MMOL/L (3.6-5.0) L 12/02/18 17:49 Chloride 101 mmol/L (98-107) 12/02/18 17:49 Carbon Dioxide 31 mmol/L (22-30) H 12/02/18 17:49 Anion Gap 9 (10-20) L 12/02/18 17:49 BUN 12 mg/dl (7-17) 12/02/18 17:49 Creatinine 1.1 mg/dl (0.7-1.2) 12/02/18 17:49 Est GFR ( Amer) > 60 12/02/18 17:49 Est GFR (Non-Af Amer) 55 12/02/18 17:49 Random Glucose 103 mg/dL (65-105) 12/02/18 17:49 Calcium 8.2 mg/dL (8.4-10.2) L 12/02/18 17:49 Total Bilirubin 0.3 mg/dl (0.2-1.3) 12/02/18 08:06 AST 26 U/L (14-36) 12/02/18 08:06 ALT 29 U/L (9-52) 12/02/18 08:06 Alkaline Phosphatase 61 U/L (38-126) 12/02/18 08:06 Troponin I < 0.0120 ng/mL (0.00-0.120) 12/02/18 08:06 Total Protein 7.0 G/DL (6.3-8.2) 12/02/18 08:06 Albumin 4.2 g/dL (3.5-5.0) 12/02/18 08:06 Globulin 2.7 gm/dL (2.2-3.9) 12/02/18 08:06 Albumin/Globulin Ratio 1.5 (1.0-2.1) 12/02/18 08:06 Triglycerides 175 mg/DL (0-149) H 12/02/18 08:06 Cholesterol 205 mg/dL (0-199) H 12/02/18 08:06 LDL Cholesterol Direct 102 mg/dL (0-129) 12/02/18 08:06 HDL Cholesterol 92 MG/DL (30-70) H 12/02/18 08:06 - Hospital Course Hospital Course: CHEST PAIN RESOLVED NO EVIDENCE OF ACUTE CORONARY SYNDROME FEELS BETTER HYPOKALEMIA SIGNIFICANTLY IMPROVED WITH IV K+ NO RECURRENCE OF PARESTHESIAS ANXIETY IMPROVED Discharge Exam - Head Exam Head Exam: ATRAUMATIC, NORMAL INSPECTION, NORMOCEPHALIC - Eye Exam Eye Exam: EOMI, Normal appearance, PERRL Pupil Exam: NORMAL ACCOMODATION, PERRL - GI/Abdominal Exam GI & Abdominal Exam: Normal Bowel Sounds - Rectal Exam Rectal Exam: NORMAL INSPECTION - Neurological Exam Neurological exam: Alert, CN II-XII Intact, Normal Gait, Oriented x3, Reflexes Normal - Psychiatric Exam Psychiatric exam: Normal Affect, Normal Mood - Skin Skin Exam: Dry, Intact, Normal Color, Warm Discharge Plan - Follow Up Plan Condition: STABLE Disposition: HOME/ ROUTINE Additional Instructions: DISCHARGE TODAY ON PO K+ FOLLOW UP WITH PMD FOR FURTHER RX
[2018-12-03] MEDS: Enoxaparin 40 mg Syringe SC SCH (09:06)
== END 2018-12-03 10:31 | disposition home or self-care (01) ==
LOC: H.ER 21:01 → H.ERHOLD 12-02 → H.TEL 12-02 14:46
PROVIDERS: ADMIT Internal Medicine Pulmonary Disease; ATTEND Internal Medicine Pulmonary Disease
DX: R07.89 Other chest pain (principal); F41.9 Anxiety disorder, unspecified; I10 Essential (primary) hypertension; K29.70 Gastritis, unspecified, without bleeding; E03.9 Hypothyroidism, unspecified; E87.6 Hypokalemia
CPT/HCPCS: 36415; 80053; 80061; 81025; 84484; 85025; 85027; 93005; 96361; 96372; 96374; 96375; 96376; 99285; G0378; J1650; J1885; J2060; J2405; J3480

== ENCOUNTER 2018-12-17 12:57 | Day surgery (SDC) | payer OTHER ==
[2018-12-17] MEDS ORDERED: Lactated Ringer's 500 ML IV ONE (13:08)
[2018-12-17 13:16] VITALS: BMI 22.8
[2018-12-17 13:30] VITALS: O2SAT 100
[2018-12-17] MEDS ORDERED: Propofol 10 mg/ml Inj (20 ML) ONE (14:10)
[2018-12-17 14:43] VITALS: RESP 16; TEMP 97.2
[2018-12-17 15:00] VITALS: BP 108/66; PULSE 86
== END 2018-12-17 15:42 | disposition home or self-care (01) ==
LOC: H.ENDO 12:57
PROVIDERS: ATTEND Internal Medicine Gastroenterology
DX: K31.89 Other diseases of stomach and duodenum (principal); R12 Heartburn; I10 Essential (primary) hypertension; E03.9 Hypothyroidism, unspecified
CPT/HCPCS: 43239; 88305; J2704; J7120